=== PATIENT | male | born 1940 | race Caucasian/White ===

== ENCOUNTER 2018-12-04 15:25 | Inpatient (IN) | payer MEDICARE, MEDICAID, SELFPAY ==
[2018-12-04] VITALS (11 sets, daily range): BP systolic 146–164; BP diastolic 69–90; PULSE 93–119; RESP 17–24; TEMP 36.4–36.7; O2SAT 88–98; BMI 30.5
--- NOTE | 2018-12-04 17:08 | DI.RAD.S_ITS ---
PROCEDURE: XR CHEST 2V INDICATIONS: dyspnea TECHNIQUE: 2 views of the chest were acquired. COMPARISON: [facility], , CHEST 2 VIEW, 05/18/2014, 13:26. FINDINGS: Surgical changes and devices: None. Lungs and pleura: Mild right lateral basilar pleural-parenchymal density is present, which is increased. No pleural effusions or pneumothorax. Mediastinum: Mediastinal contours are normal. Heart size is enlarged. Bones and chest wall: No suspicious bony abnormalities. Soft tissues appear unremarkable. IMPRESSION: Increased right basilar pleural-parenchymal density, which could indicate pneumonitis. Follow up plain films of the chest are recommended to ensure resolution, and to exclude underlying or central malignancy. Dictated by: Anthony Rodríguez M.D. on 12/04/2018 at 18:09 Approved by: Anthony Rodríguez M.D. on 12/04/2018 at 18:10
--- NOTE | 2018-12-04 17:11 | ED.NAVMDI ---
HPI - Nausea/Vomiting/Diarrhea <Karol Saleem PA-C - Last Filed: 12/04/18 22:16> General Chief complaint: Nausea/Vomiting/Diarrhea Stated complaint: short of breath, diarrhea, chest issues Time Seen by Provider: 12/04/18 16:58 Source: patient Mode of arrival: ambulatory Limitations: no limitations History of Present Illness HPI Narrative: This 78-year-old male comes in with caregiver today due to worsening respiratory difficulties. He states this is just today however his caregiver states that this has been gradual. He states that he is more short of breath in general and having some wheezing as well. He is not having any chest pain. He admits that he has not been using inhalers. He has had increased swelling in his legs but no new pain. He denies any nausea or vomiting but has had persistent diarrhea for 5 or 6 days. He states that he has had loose, watery stools about every hour. He denies blood in the stools. He denies abdominal pain. He denies fever. Caregiver states that he has had frequent stools although he has not had any since she got there this morning about 6 hr ago. His furosemide was reduced a little bit at his last office visit at he seemed to be on the dry side. He is on spironolactone as well. Caregiver notes that he is not drinking or eating quite as much due to diarrhea Related Data Home Medications Medication Instructions Recorded Confirmed atorvastatin 20 mg PO BEDTIME 12/04/18 12/04/18 calcium carbonate [Tums] 500 mg PO BID 12/04/18 12/04/18 carvedilol 25 mg PO BID 12/04/18 12/04/18 cholecalciferol (vitamin D3) 2,000 unit PO BEDTIME 12/04/18 12/04/18 [Vitamin D3] docusate sodium 250 mg PO QNOON 12/04/18 12/04/18 furosemide 20 mg PO DAILY 12/04/18 12/04/18 gabapentin 300 mg PO BEDTIME 12/04/18 12/04/18 lisinopril 10 mg PO DAILY 12/04/18 12/04/18 potassium chloride 20 meq PO QNOON 12/04/18 12/04/18 quetiapine 25 mg PO BEDTIME 12/04/18 12/04/18 rivaroxaban [Xarelto] 20 mg PO QPM 12/04/18 12/04/18 sertraline 50 mg PO DAILY 12/04/18 12/04/18 spironolactone 12.5 mg PO DAILY 12/04/18 12/04/18 Allergies Allergy/AdvReac Type Severity Reaction Status Date / Time Penicillins [PENICILLINS] Allergy Unknown Verified 12/04/18 19:07 Review of Systems <Karol Saleem PA-C - Last Filed: 12/04/18 22:16> Review of Systems ROS Unobtainable: All systems reviewed & are unremarkable except as noted in HPI and below PFSH <Karol Slaeem PA-C - Last Filed: 12/04/18 22:16> Medical History Atrial fibrillation, chronic (Chronic) Atypical depression (Chronic) CHF exacerbation (Chronic) Chronic diarrhea (Chronic) Diabetes (Chronic) Elevated lipids (Chronic) 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 HEENT: PERRL, EOMI, normal oropharynx NECK/THYROID: Neck supple, no JVD. LUNGS: breath sounds are a bit diminished throughout, congested, without clear wheeze or crackles. on ambulation trial patient is able to walk through department with O2 sats upper 80s to 90 range, difficulty completing sentences after walking HEART: rate and rhythm irregular without murmur ABDOMEN: Soft, NT, ND, + BS x 4 quadrants EXTREMITIES: moderate symmetric pitting edema bilaterally, no calf tenderness NEUROLOGIC: Alert, speech intelligible, poor historian Initial Vital Signs Initial Vital Signs: Vital Signs Temperature 97.6 F 12/04/18 15:37 Pulse Rate 109 H 12/04/18 15:37 Respiratory Rate 20 12/04/18 15:37 Blood Pressure 153/82 H 12/04/18 15:37 Pulse Oximetry 95 12/04/18 15:37 <Aiden Ferrer DO - Last Filed: 12/05/18 07:05> Initial Vital Signs Initial Vital Signs: Vital Signs Temperature 97.6 F 12/04/18 15:37 Pulse Rate 109 H 12/04/18 15:37 Respiratory Rate 20 12/04/18 15:37 Blood Pressure 153/82 H 12/04/18 15:37 Pulse Oximetry 95 12/04/18 15:37 Course <Karol Saleem PA-C - Last Filed: 12/04/18 22:16> Additional Information: Reviewed findings with hospitalist TRELL Mistry with elevated BNP, worsening respiratory difficulties at home (reliable information via caregiver) and significant comorbidities. he is not able to manage his medications at home and will not have a caregiver present tomorrow. She is agreeable with admission for diuresis. Orders Ordered: ED Orders 12/05/18 05:45 B Type Natriuretic Peptide Routine Basic Metabolic Panel DAILY Magnesium DAILY Procalcitonin Routine 12/06/18 06:00 Basic Metabolic Panel DAILY Magnesium DAILY Acetaminophen (Tylenol) 650 mg PO Q6HR PRN PRN Reason: As Needed for Fever/Mild Pain Albuterol (Ventolin) 2.5 mg INH [id number] PRN PRN Reason: Bronchospasm Atorvastatin Calcium (Lipitor) 20 mg PO BEDTIME [facility] Last Admin: 12/05/18 00:18 Dose: 20 mg Bumetanide (Bumex) 0.5 mg IV Q8H [facility] Stop: 12/05/18 15:31 Last Admin: 12/05/18 00:18 Dose: 0.5 mg Carvedilol (Coreg) 25 mg PO BID [facility] Insulin Aspart (Novolog Flexpen) 0 unit SUBCUT ACHS SERGO; Protocol Lisinopril (Zestril) 10 mg PO DAILY [facility] Ondansetron HCl (Zofran) 4 mg IV Q8HR PRN PRN Reason: Nausea And Vomiting Quetiapine Fumarate (Seroquel) 25 mg PO BEDTIME [facility] Last Admin: 12/05/18 00:18 Dose: 25 mg Rivaroxaban (Xarelto) 20 mg PO QPM [facility] Vitamin D (Vitamin D3) 2,000 unit PO BEDTIME [facility] Discontinued Medications Albuterol (Ventolin) 2.5 mg INH NOW ONE Stop: 12/04/18 17:09 Last Admin: 12/04/18 17:15 Dose: 2.5 mg Furosemide (Lasix) 40 mg IV NOW ONE Stop: 12/04/18 17:20 Last Admin: 12/04/18 17:34 Dose: 40 mg Sodium Chloride (Normal Saline 0.9%) 1,000 mls @ 500 mls/hr IV BOLUS ONE Stop: 12/04/18 19:19 Last Infusion: 12/04/18 19:57 Dose: 500 mls/hr Admin: 12/04/18 17:33 Dose: 500 mls/hr Loperamide HCl (Immodium Liquid) 4 mg PO NOW ONE Stop: 12/04/18 17:19 Last Admin: 12/04/18 17:33 Dose: 4 mg Metoprolol Tartrate (Lopressor) 5 mg IV NOW ONE Stop: 12/04/18 23:16 Last Admin: 12/05/18 00:17 Dose: 5 mg Vital Signs - 8 hr 12/05/18 00:06 12/05/18 00:18 12/05/18 00:30 Temperature 97.6 F Pulse Rate 91 H 95 H 86 Respiratory Rate 20 Blood Pressure 135/82 150/95 H 138/71 Pulse Oximetry 92 99 95 12/05/18 04:00 Temperature 97.3 F L Pulse Rate 87 Respiratory Rate 18 Blood Pressure 129/57 L Pulse Oximetry 93 <Aiden Ferrer DO - Last Filed: 12/05/18 07:05> Orders Ordered: ED Orders 12/05/18 05:45 B Type Natriuretic Peptide Routine Basic Metabolic Panel DAILY Magnesium DAILY Procalcitonin Routine 12/06/18 06:00 Basic Metabolic Panel DAILY Magnesium DAILY Acetaminophen (Tylenol) 650 mg PO Q6HR PRN PRN Reason: As Needed for Fever/Mild Pain Albuterol (Ventolin) 2.5 mg INH [id number] PRN PRN Reason: Bronchospasm Atorvastatin Calcium (Lipitor) 20 mg PO BEDTIME [facility] Last Admin: 12/05/18 00:18 Dose: 20 mg Bumetanide (Bumex) 0.5 mg IV Q8H [facility] Stop: 12/05/18 15:31 Last Admin: 12/05/18 00:18 Dose: 0.5 mg Carvedilol (Coreg) 25 mg PO BID [facility] Insulin Aspart (Novolog Flexpen) 0 unit SUBCUT ACHS SER[facility]; Protocol Lisinopril (Zestril) 10 mg PO DAILY [facility] Ondansetron HCl (Zofran) 4 mg IV Q8HR PRN PRN Reason: Nausea And Vomiting Quetiapine Fumarate (Seroquel) 25 mg PO BEDTIME [facility] Last Admin: 12/05/18 00:18 Dose: 25 mg Rivaroxaban (Xarelto) 20 mg PO QPM [facility] Vitamin D (Vitamin D3) 2,000 unit PO BEDTIME [facility] Discontinued Medications Albuterol (Ventolin) 2.5 mg INH NOW ONE Stop: 12/04/18 17:09 Last Admin: 12/04/18 17:15 Dose: 2.5 mg Furosemide (Lasix) 40 mg IV NOW ONE Stop: 12/04/18 17:20 Last Admin: 12/04/18 17:34 Dose: 40 mg Sodium Chloride (Normal Saline 0.9%) 1,000 mls @ 500 mls/hr IV BOLUS ONE Stop: 12/04/18 19:19 Last Infusion: 12/04/18 19:57 Dose: 500 mls/hr Admin: 12/04/18 17:33 Dose: 500 mls/hr Loperamide HCl (Immodium Liquid) 4 mg PO NOW ONE Stop: 12/04/18 17:19 Last Admin: 12/04/18 17:33 Dose: 4 mg Metoprolol Tartrate (Lopressor) 5 mg IV NOW ONE Stop: 12/04/18 23:16 Last Admin: 12/05/18 00:17 Dose: 5 mg Vital Signs - 8 hr 12/05/18 00:06 12/05/18 00:18 12/05/18 00:30 Temperature 97.6 F Pulse Rate 91 H 95 H 86 Respiratory Rate 20 Blood Pressure 135/82 150/95 H 138/71 Pulse Oximetry 92 99 95 12/05/18 04:00 Temperature 97.3 F L Pulse Rate 87 Respiratory Rate 18 Blood Pressure 129/57 L Pulse Oximetry 93 MDM - Nausea/Vomiting/Diarrhea <Karol Saleem PA-C - Last Filed: 12/04/18 22:16> Lab Data Attestation: I reviewed the patient's lab results. Result diagrams: 12/04/18 17:02 12/05/18 05:45 Lab Results 12/04/18 12/04/18 12/04/18 Range/Units 17:02 17:02 17:02 WBC 9.0 (4.5-11.0) X10^3/uL RBC 3.85 L (4.5-5.9) X10^6/uL Hgb 12.3 L (13.5-17.5) g/dL Hct 38.0 L (41-53) % MCV 98.6 (80-100) fL MCH 32.0 (26-34) PG MCHC 32.4 (30-36) % RDW 19.3 H (11.6-14.8) % Plt Count 235 (150-400) X10^3/uL Neut % (Auto) 76.0 H (50-75) % Lymph % (Auto) 12.6 L (25-40) % Gulf % (Auto) 6.0 (3-14) % Eos % (Auto) 4.3 H (2-4) % Baso % (Auto) 1.1 (0-2) % Neut # (Auto) 6900 (2814-1189) /uL Lymph # (Auto) 1100 (2759-4800) /uL [place] # (Auto) 500 (0-900) /uL Eos # (Auto) 400 (0-450) /uL Baso # (Auto) 100 (0-100) /uL Sodium 140 (137-145) mmol/L Potassium 3.9 (3.4-5.1) mmol/L Chloride 101 (98-107) mmol/L Carbon Dioxide 30 (22-32) mmol/L BUN 14 (9-20) mg/dL Creatinine 1.00 (0.66-1.25) mg/dL Estimated GFR > 60.0 (>60) mL/min BUN/Creatinine Ratio 14.0 (6-22) Glucose 133 H (80-110) mg/dL Calcium 8.5 (8.4-10.2) mg/dL Magnesium 2.3 (1.6-2.3) mg/dL Total Bilirubin 1.9 H (0.2-1.3) mg/dL AST 24 (17-59) IU/L ALT 36 (21-72) IU/L Alkaline Phosphatase 81 (38-126) U/L B-Natriuretic Peptide 1640 H (<100) Total Protein 6.1 L (6.3-8.2) g/dL Albumin 3.4 L (3.5-5.0) g/dL Globulin 2.7 (1.7-4.1) g/dL Albumin/Globulin Ratio 1.3 (1.0-2.8) Chlamy pneumoniae PCR (Not Detect) Adenovirus (PCR) (Not Detect) B.parapertussis DNA PCR (Not Detect) Coronavirus OC43 (PCR) (Not Detect) Coronavirus HKU1 (PCR) (Not Detect) Coronavirus 229E (PCR) (Not Detect) Coronavirus NL63 (PCR) (Not Detect) Human Metapneumovir PCR (Not Detect) Influenza Type A (PCR) (Not Detect) Influenza Type B (PCR) (Not Detect) M. pneumoniae (PCR) (Not Detect) Parainfluenza 1 (PCR) (Not Detect) Parainfluenza 2 (PCR) (Not Detect) Parainfluenza 3 (PCR) (Not Detect) Parainfluenza 4 (PCR) (Not Detect) RSV (PCR) (Not Detect) Entero/Rhino (PCR) (Not Detect) 12/04/18 12/05/18 12/05/18 Range/Units 21:45 05:45 05:45 WBC (4.5-11.0) X10^3/uL RBC (4.5-5.9) X10^6/uL Hgb (13.5-17.5) g/dL Hct (41-53) % MCV (80-100) fL MCH (26-34) PG MCHC (30-36) % RDW (11.6-14.8) % Plt Count (150-400) X10^3/uL Neut % (Auto) (50-75) % Lymph % (Auto) (25-40) % Gulf % (Auto) (3-14) % Eos % (Auto) (2-4) % Baso % (Auto) (0-2) % Neut # (Auto) (3929-4567) /uL Lymph # (Auto) (0787-4052) /uL [place] # (Auto) (0-900) /uL Eos # (Auto) (0-450) /uL Baso # (Auto) (0-100) /uL Sodium 140 (137-145) mmol/L Potassium 3.5 (3.4-5.1) mmol/L Chloride 104 (98-107) mmol/L Carbon Dioxide 28 (22-32) mmol/L BUN 13 (9-20) mg/dL Creatinine 1.00 (0.66-1.25) mg/dL Estimated GFR > 60.0 (>60) mL/min BUN/Creatinine Ratio 13.0 (6-22) Glucose 121 H (80-110) mg/dL Calcium 8.5 (8.4-10.2) mg/dL Magnesium 1.9 (1.6-2.3) mg/dL Total Bilirubin (0.2-1.3) mg/dL AST (17-59) IU/L ALT (21-72) IU/L Alkaline Phosphatase (38-126) U/L B-Natriuretic Peptide 1590 H (<100) Total Protein (6.3-8.2) g/dL Albumin (3.5-5.0) g/dL Globulin (1.7-4.1) g/dL Albumin/Globulin Ratio (1.0-2.8) Chlamy pneumoniae PCR Not detected (Not Detect) Adenovirus (PCR) Not detected (Not Detect) B.parapertussis DNA PCR Not detected (Not Detect) Coronavirus OC43 (PCR) Not detected (Not Detect) Coronavirus HKU1 (PCR) Not detected (Not Detect) Coronavirus 229E (PCR) Not detected (Not Detect) Coronavirus NL63 (PCR) Not detected (Not Detect) Human Metapneumovir PCR Not detected (Not Detect) Influenza Type A (PCR) Not detected (Not Detect) Influenza Type B (PCR) Not detected (Not Detect) M. pneumoniae (PCR) Not detected (Not Detect) Parainfluenza 1 (PCR) Not detected (Not Detect) Parainfluenza 2 (PCR) Not detected (Not Detect) Parainfluenza 3 (PCR) Not detected (Not Detect) Parainfluenza 4 (PCR) Not detected (Not Detect) RSV (PCR) Not detected (Not Detect) Entero/Rhino (PCR) Not detected (Not Detect) Point of Care Testing Glucose POC 121 Imaging Data Chest x-ray: Radiologist's impression: [address] [address] XRay Report Signed Patient: Anam Davidson RMR#: [id number] : 1940Acct:[id number] Age/Sex: 78 / MDate of Service: 12/04/18 Loc: ED Accession Number: [id number] Procedure: XR chest 2V Ordering Provider: Karol Saleem P.A-C PROCEDURE: XR CHEST 2V INDICATIONS: dyspnea TECHNIQUE: 2 views of the chest were acquired. COMPARISON: [facility], CHEST 2 VIEW, 05/18/2014, 13:26. FINDINGS: Surgical changes and devices: None. Lungs and pleura: Mild right lateral basilar pleural-parenchymal density is present, which is increased. No pleural effusions or pneumothorax. Mediastinum: Mediastinal contours are normal. Heart size is enlarged. Bones and chest wall: No suspicious bony abnormalities. Soft tissues appear unremarkable. IMPRESSION: Increased right basilar pleural-parenchymal density, which could indicate pneumonitis. Follow up plain films of the chest are recommended to ensure resolution, and to exclude underlying or central malignancy. Dictated by: Anthony Rodríguez M.D. on 12/04/2018 at 18:09 Approved by: Anthony Rodríguez M.D. on 12/04/2018 at 18:10 ECG Data Attestation: I personally reviewed and interpreted this ECG as follows: ( atrial fibrillation with rate 95-115 on 2 EKGs, bundle branch pattern present inferior leads) <Aiden Ferrer DO - Last Filed: 12/05/18 07:05> Lab Data Lab Results 12/04/18 12/04/18 12/04/18 Range/Units 17:02 17:02 17:02 WBC 9.0 (4.5-11.0) X10^3/uL RBC 3.85 L (4.5-5.9) X10^6/uL Hgb 12.3 L (13.5-17.5) g/dL Hct 38.0 L (41-53) % MCV 98.6 (80-100) fL MCH 32.0 (26-34) PG MCHC 32.4 (30-36) % RDW 19.3 H (11.6-14.8) % Plt Count 235 (150-400) X10^3/uL Neut % (Auto) 76.0 H (50-75) % Lymph % (Auto) 12.6 L (25-40) % [place] % (Auto) 6.0 (3-14) % Eos % (Auto) 4.3 H (2-4) % Baso % (Auto) 1.1 (0-2) % Neut # (Auto) 6900 (3900-4162) /uL Lymph # (Auto) 1100 (8185-2100) /uL [place] # (Auto) 500 (0-900) /uL Eos # (Auto) 400 (0-450) /uL Baso # (Auto) 100 (0-100) /uL Sodium 140 (137-145) mmol/L Potassium 3.9 (3.4-5.1) mmol/L Chloride 101 (98-107) mmol/L Carbon Dioxide 30 (22-32) mmol/L BUN 14 (9-20) mg/dL Creatinine 1.00 (0.66-1.25) mg/dL Estimated GFR > 60.0 (>60) mL/min BUN/Creatinine Ratio 14.0 (6-22) Glucose 133 H (80-110) mg/dL Calcium 8.5 (8.4-10.2) mg/dL Magnesium 2.3 (1.6-2.3) mg/dL Total Bilirubin 1.9 H (0.2-1.3) mg/dL AST 24 (17-59) IU/L ALT 36 (21-72) IU/L Alkaline Phosphatase 81 (38-126) U/L B-Natriuretic Peptide 1640 H (<100) Total Protein 6.1 L (6.3-8.2) g/dL Albumin 3.4 L (3.5-5.0) g/dL Globulin 2.7 (1.7-4.1) g/dL Albumin/Globulin Ratio 1.3 (1.0-2.8) Chlamy pneumoniae PCR (Not Detect) Adenovirus (PCR) (Not Detect) B.parapertussis DNA PCR (Not Detect) Coronavirus OC43 (PCR) (Not Detect) Coronavirus HKU1 (PCR) (Not Detect) Coronavirus 229E (PCR) (Not Detect) Coronavirus NL63 (PCR) (Not Detect) Human Metapneumovir PCR (Not Detect) Influenza Type A (PCR) (Not Detect) Influenza Type B (PCR) (Not Detect) M. pneumoniae (PCR) (Not Detect) Parainfluenza 1 (PCR) (Not Detect) Parainfluenza 2 (PCR) (Not Detect) Parainfluenza 3 (PCR) (Not Detect) Parainfluenza 4 (PCR) (Not Detect) RSV (PCR) (Not Detect) Entero/Rhino (PCR) (Not Detect) 12/04/18 12/05/18 12/05/18 Range/Units 21:45 05:45 05:45 WBC (4.5-11.0) X10^3/uL RBC (4.5-5.9) X10^6/uL Hgb (13.5-17.5) g/dL Hct (41-53) % MCV (80-100) fL MCH (26-34) PG MCHC (30-36) % RDW (11.6-14.8) % Plt Count (150-400) X10^3/uL Neut % (Auto) (50-75) % Lymph % (Auto) (25-40) % [place] % (Auto) (3-14) % Eos % (Auto) (2-4) % Baso % (Auto) (0-2) % Neut # (Auto) (9582-9482) /uL Lymph # (Auto) (7960-8461) /uL [place] # (Auto) (0-900) /uL Eos # (Auto) (0-450) /uL Baso # (Auto) (0-100) /uL Sodium 140 (137-145) mmol/L Potassium 3.5 (3.4-5.1) mmol/L Chloride 104 (98-107) mmol/L Carbon Dioxide 28 (22-32) mmol/L BUN 13 (9-20) mg/dL Creatinine 1.00 (0.66-1.25) mg/dL Estimated GFR > 60.0 (>60) mL/min BUN/Creatinine Ratio 13.0 (6-22) Glucose 121 H (80-110) mg/dL Calcium 8.5 (8.4-10.2) mg/dL Magnesium 1.9 (1.6-2.3) mg/dL Total Bilirubin (0.2-1.3) mg/dL AST (17-59) IU/L ALT (21-72) IU/L Alkaline Phosphatase (38-126) U/L B-Natriuretic Peptide 1590 H (<100) Total Protein (6.3-8.2) g/dL Albumin (3.5-5.0) g/dL Globulin (1.7-4.1) g/dL Albumin/Globulin Ratio (1.0-2.8) Chlamy pneumoniae PCR Not detected (Not Detect) Adenovirus (PCR) Not detected (Not Detect) B.parapertussis DNA PCR Not detected (Not Detect) Coronavirus OC43 (PCR) Not detected (Not Detect) Coronavirus HKU1 (PCR) Not detected (Not Detect) Coronavirus 229E (PCR) Not detected (Not Detect) Coronavirus NL63 (PCR) Not detected (Not Detect) Human Metapneumovir PCR Not detected (Not Detect) Influenza Type A (PCR) Not detected (Not Detect) Influenza Type B (PCR) Not detected (Not Detect) M. pneumoniae (PCR) Not detected (Not Detect) Parainfluenza 1 (PCR) Not detected (Not Detect) Parainfluenza 2 (PCR) Not detected (Not Detect) Parainfluenza 3 (PCR) Not detected (Not Detect) Parainfluenza 4 (PCR) Not detected (Not Detect) RSV (PCR) Not detected (Not Detect) Entero/Rhino (PCR) Not detected (Not Detect) Point of Care Testing Glucose POC 121 Discharge Plan Departure Patient Disposition: Admitted As Inpatient Clinical Impression: Acute exacerbation of CHF (congestive heart failure) Qualifiers: Heart failure type: unspecified Qualified Code(s): I50.9 - Heart failure, unspecified Discharge Date/Time: 12/04/18 21:01 Interventions: ED Discharge Assessment Last Done: 12/04/18 21:00 Admit Date/Time: 12/04/18 20:17 Admit Provider: Romina Mistry <Aiden Ferrer DO - Last Filed: 12/05/18 07:05> Cosign ED Attending Cosignature Attestation: I was available for consultation during this patient's emergency department encounter
[2018-12-04] MEDS: ALBUTEROL 2.5 MG/3 ML NEB (ADULT) INH (17:15)
--- NOTE | 2018-12-04 17:18 | ED_ITS ---
HPI - Nausea/Vomiting/Diarrhea <Karol Saleem PA-C - Last Filed: 12/04/18 22:16> General Chief complaint: Nausea/Vomiting/Diarrhea Stated complaint: short of breath, diarrhea, chest issues Time Seen by Provider: 12/04/18 16:58 Source: patient Mode of arrival: ambulatory Limitations: no limitations History of Present Illness HPI Narrative: This 78-year-old male comes in with caregiver today due to worsening respiratory difficulties. He states this is just today however his caregiver states that this has been gradual. He states that he is more short of breath in general and having some wheezing as well. He is not having any chest pain. He admits that he has not been using inhalers. He has had increased swelling in his legs but no new pain. He denies any nausea or vomiting but has had persistent diarrhea for 5 or 6 days. He states that he has had loose, watery stools about every hour. He denies blood in the stools. He denies abdominal pain. He denies fever. Caregiver states that he has had frequent stools although he has not had any since she got there this morning about 6 hr ago. His furosemide was reduced a little bit at his last office visit at he seemed to be on the dry side. He is on spironolactone as well. Caregiver notes that he is not drinking or eating quite as much due to diarrhea Related Data Home Medications Medication Instructions Recorded Confirmed atorvastatin 20 mg PO BEDTIME 12/04/18 12/04/18 calcium carbonate [Tums] 500 mg PO BID 12/04/18 12/04/18 carvedilol 25 mg PO BID 12/04/18 12/04/18 cholecalciferol (vitamin D3) 2,000 unit PO BEDTIME 12/04/18 12/04/18 [Vitamin D3] docusate sodium 250 mg PO QNOON 12/04/18 12/04/18 furosemide 20 mg PO DAILY 12/04/18 12/04/18 gabapentin 300 mg PO BEDTIME 12/04/18 12/04/18 lisinopril 10 mg PO DAILY 12/04/18 12/04/18 potassium chloride 20 meq PO QNOON 12/04/18 12/04/18 quetiapine 25 mg PO BEDTIME 12/04/18 12/04/18 rivaroxaban [Xarelto] 20 mg PO QPM 12/04/18 12/04/18 sertraline 50 mg PO DAILY 12/04/18 12/04/18 spironolactone 12.5 mg PO DAILY 12/04/18 12/04/18 Allergies Allergy/AdvReac Type Severity Reaction Status Date / Time Penicillins [PENICILLINS] Allergy Unknown Verified 12/04/18 19:07 Review of Systems <Karol Saleem PA-C - Last Filed: 12/04/18 22:16> Review of Systems ROS Unobtainable: All systems reviewed & are unremarkable except as noted in HPI and below PFSH <Karol Saleem PA-C - Last Filed: 12/04/18 22:16> Medical History Atrial fibrillation, chronic (Chronic) Atypical depression (Chronic) CHF exacerbation (Chronic) Chronic diarrhea (Chronic) Diabetes (Chronic) Elevated lipids (Chronic) 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 HEENT: PERRL, EOMI, normal oropharynx NECK/THYROID: Neck supple, no JVD. LUNGS: breath sounds are a bit diminished throughout, congested, without clear wheeze or crackles. on ambulation trial patient is able to walk through department with O2 sats upper 80s to 90 range, difficulty completing sentences after walking HEART: rate and rhythm irregular without murmur ABDOMEN: Soft, NT, ND, + BS x 4 quadrants EXTREMITIES: moderate symmetric pitting edema bilaterally, no calf tenderness NEUROLOGIC: Alert, speech intelligible, poor historian Initial Vital Signs Initial Vital Signs: Vital Signs Temperature 97.6 F 12/04/18 15:37 Pulse Rate 109 H 12/04/18 15:37 Respiratory Rate 20 12/04/18 15:37 Blood Pressure 153/82 H 12/04/18 15:37 Pulse Oximetry 95 12/04/18 15:37 <Aiden Ferrer DO - Last Filed: 12/05/18 07:05> Initial Vital Signs Initial Vital Signs: Vital Signs Temperature 97.6 F 12/04/18 15:37 Pulse Rate 109 H 12/04/18 15:37 Respiratory Rate 20 12/04/18 15:37 Blood Pressure 153/82 H 12/04/18 15:37 Pulse Oximetry 95 12/04/18 15:37 Course <Karol Saleem PA-C - Last Filed: 12/04/18 22:16> Additional Information: Reviewed findings with hospitalist TRELL Mistry with elevated BNP, worsening respiratory difficulties at home (reliable information v ia caregiver) and significant comorbidities. he is not able to manage his medications at home and will not have a caregiver present tomorrow. She is agreeable with admission for diuresis. Orders Ordered: ED Orders 12/05/18 05:45 B Type Natriuretic Peptide Routine Basic Metabolic Panel DAILY Magnesium DAILY Procalcitonin Routine 12/06/18 06:00 Basic Metabolic Panel DAILY Magnesium DAILY Acetaminophen (Tylenol) 650 mg PO Q6HR PRN PRN Reason: As Needed for Fever/Mild Pain Albuterol (Ventolin) 2.5 mg INH [id number] PRN PRN Reason: Bronchospasm Atorvastatin Calcium (Lipitor) 20 mg PO BEDTIME [facility] Last Admin: 12/05/18 00:18 Dose: 20 mg Bumetanide (Bumex) 0.5 mg IV Q8H [facility] Stop: 12/05/18 15:31 Last Admin: 12/05/18 00:18 Dose: 0.5 mg Carvedilol (Coreg) 25 mg PO BID [facility] Insulin Aspart (Novolog Flexpen) 0 unit SUBCUT ACHS [facility]; Protocol Lisinopril (Zestril) 10 mg PO DAILY [facility] Ondansetron HCl (Zofran) 4 mg IV Q8HR PRN PRN Reason: Nausea And Vomiting Quetiapine Fumarate (Seroquel) 25 mg PO BEDTIME [facility] Last Admin: 12/05/18 00:18 Dose: 25 mg Rivaroxaban (Xarelto) 20 mg PO QPM [facility] Vitamin D (Vitamin D3) 2,000 unit PO BEDTIME [facility] Discontinued Medications Albuterol (Ventolin) 2.5 mg INH NOW ONE Stop: 12/04/18 17:09 Last Admin: 12/04/18 17:15 Dose: 2.5 mg Furosemide (Lasix) 40 mg IV NOW ONE Stop: 12/04/18 17:20 Last Admin: 12/04/18 17:34 Dose: 40 mg Sodium Chloride (Normal Saline 0.9%) 1,000 mls @ 500 mls/hr IV BOLUS ONE Stop: 12/04/18 19:19 Last Infusion: 12/04/18 19:57 Dose: 500 mls/hr Admin: 12/04/18 17:33 Dose: 500 mls/hr Loperamide HCl (Immodium Liquid) 4 mg PO NOW ONE Stop: 12/04/18 17:19 Last Admin: 12/04/18 17:33 Dose: 4 mg Metoprolol Tartrate (Lopressor) 5 mg IV NOW ONE Stop: 12/04/18 23:16 Last Admin: 12/05/18 00:17 Dose: 5 mg Vital Signs - 8 hr 12/05/18 00:06 12/05/18 00:18 12/05/18 00:30 Temperature 97.6 F Pulse Rate 91 H 95 H 86 Respiratory Rate 20 Blood Pressure 135/82 150/95 H 138/71 Pulse Oximetry 92 99 95 12/05/18 04:00 Temperature 97.3 F L Pulse Rate 87 Respiratory Rate 18 Blood Pressure 129/57 L Pulse Oximetry 93 <Aiden Ferrer DO - Last Filed: 12/05/18 07:05> Orders Ordered: ED Orders 12/05/18 05:45 B Type Natriuretic Peptide Routine Basic Metabolic Panel DAILY Magnesium DAILY Procalcitonin Routine 12/06/18 06:00 Basic Metabolic Panel DAILY Magnesium DAILY Acetaminophen (Tylenol) 650 mg PO Q6HR PRN PRN Reason: As Needed for Fever/Mild Pain Albuterol (Ventolin) 2.5 mg INH [id number] PRN PRN Reason: Bronchospasm Atorvastatin Calcium (Lipitor) 20 mg PO BEDTIME [facility] Last Admin: 12/05/18 00:18 Dose: 20 mg Bumetanide (Bumex) 0.5 mg IV Q8H [facility] Stop: 12/05/18 15:31 Last Admin: 12/05/18 00:18 Dose: 0.5 mg Carvedilol (Coreg) 25 mg PO BID [facility] Insulin Aspart (Novolog Flexpen) 0 unit SUBCUT ACHS [facility]; Protocol Lisinopril (Zestril) 10 mg PO DAILY [facility] Ondansetron HCl (Zofran) 4 mg IV Q8HR PRN PRN Reason: Nausea And Vomiting Quetiapine Fumarate (Seroquel) 25 mg PO BEDTIME [facility] Last Admin: 12/05/18 00:18 Dose: 25 mg Rivaroxaban (Xarelto) 20 mg PO QPM [facility] Vitamin D (Vitamin D3) 2,000 unit PO BEDTIME [facility] Discontinued Medications Albuterol (Ventolin) 2.5 mg INH NOW ONE Stop: 12/04/18 17:09 Last Admin: 12/04/18 17:15 Dose: 2.5 mg Furosemide (Lasix) 40 mg IV NOW ONE Stop: 12/04/18 17:20 Last Admin: 12/04/18 17:34 Dose: 40 mg Sodium Chloride (Normal Saline 0.9%) 1,000 mls @ 500 mls/hr IV BOLUS ONE Stop: 12/04/18 19:19 Last Infusion: 12/04/18 19:57 Dose: 500 mls/hr Admin: 12/04/18 17:33 Dose: 500 mls/hr Loperamide HCl (Immodium Liquid) 4 mg PO NOW ONE Stop: 12/04/18 17:19 Last Admin: 12/04/18 17:33 Dose: 4 mg Metoprolol Tartrate (Lopressor) 5 mg IV NOW ONE Stop: 12/04/18 23:16 Last Admin: 12/05/18 00:17 Dose: 5 mg Vital Signs - 8 hr 12/05/18 00:06 12/05/18 00:18 12/05/18 00:30 Temperature 97.6 F Pulse Rate 91 H 95 H 86 Respiratory Rate 20 Blood Pressure 135/82 150/95 H 138/71 Pulse Oximetry 92 99 95 12/05/18 04:00 Temperature 97.3 F L Pulse Rate 87 Respiratory Rate 18 Blood Pressure 129/57 L Pulse Oximetry 93 MDM - Nausea/Vomiting/Diarrhea <Karol Saleem PA-C - Last Filed: 12/04/18 22:16> Lab Data Attestation: I reviewed the patient's lab results. Result diagrams: 12/04/18 17:02 12/05/18 05:45 Lab Results 12/04/18 12/04/18 12/04/18 Range/Units 17:02 17:02 17:02 WBC 9.0 (4.5-11.0) X10^3/uL RBC 3.85 L (4.5-5.9) X10^6/uL Hgb 12.3 L (13.5-17.5) g/dL Hct 38.0 L (41-53) % MCV 98.6 (80-100) fL MCH 32.0 (26-34) PG MCHC 32.4 (30-36) % RDW 19.3 H (11.6-14.8) % Plt Count 235 (150-400) X10^3/uL Neut % (Auto) 76.0 H (50-75) % Lymph % (Auto) 12.6 L (25-40) % [place] % (Auto) 6.0 (3-14) % Eos % (Auto) 4.3 H (2-4) % Baso % (Auto) 1.1 (0-2) % Neut # (Auto) 6900 (4544-6204) /uL Lymph # (Auto) 1100 (2028-9691) /uL [place] # (Auto) 500 (0-900) /uL Eos # (Auto) 400 (0-450) /uL Baso # (Auto) 100 (0-100) /uL Sodium 140 (137-145) mmol/L Potassium 3.9 (3.4-5.1) mmol/L Chloride 101 (98-107) mmol/L Carbon Dioxide 30 (22-32) mmol/L BUN 14 (9-20) mg/dL Creatinine 1.00 (0.66-1.25) mg/dL Estimated GFR > 60.0 (>60) mL/min BUN/Creatinine Ratio 14.0 (6-22) Glucose 133 H (80-110) mg/dL Calcium 8.5 (8.4-10.2) mg/dL Magnesium 2.3 (1.6-2.3) mg/dL Total Bilirubin 1.9 H (0.2-1.3) mg/dL AST 24 (17-59) IU/L ALT 36 (21-72) IU/L Alkaline Phosphatase 81 (38-126) U/L B-Natriuretic Peptide 1640 H (<100) Total Protein 6.1 L (6.3-8.2) g/dL Albumin 3.4 L (3.5-5.0) g/dL Globulin 2.7 (1.7-4.1) g/dL Albumin/Globulin Ratio 1.3 (1.0-2.8) Chlamy pneumoniae PCR (Not Detect) Adenovirus (PCR) (Not Detect) B.parapertussis DNA PCR (Not Detect) Coronavirus OC43 (PCR) (Not Detect) Coronavirus HKU1 (PCR) (Not Detect) Coronavirus 229E (PCR) (Not Detect) Coronavirus NL63 (PCR) (Not Detect) Human Metapneumovir PCR (Not Detect) Influenza Type A (PCR) (Not Detect) Influenza Type B (PCR) (Not Detect) M. pneumoniae (PCR) (Not Detect) Parainfluenza 1 (PCR) (Not Detect) Parainfluenza 2 (PCR) (Not Detect) Parainfluenza 3 (PCR) (Not Detect) Parainfluenza 4 (PCR) (Not Detect) RSV (PCR) (Not Detect) Entero/Rhino (PCR) (Not Detect) 12/04/18 12/05/18 12/05/18 Range/Units 21:45 05:45 05:45 WBC (4.5-11.0) X10^3/uL RBC (4.5-5.9) X10^6/uL Hgb (13.5-17.5) g/dL Hct (41-53) % MCV (80-100) fL MCH (26-34) PG MCHC (30-36) % RDW (11.6-14.8) % Plt Count (150-400) X10^3/uL Neut % (Auto) (50-75) % Lymph % (Auto) (25-40) % [place] % (Auto) (3-14) % Eos % (Auto) (2-4) % Baso % (Auto) (0-2) % Neut # (Auto) (4333-6633) /uL Lymph # (Auto) (5700-2889) /uL [place] # (Auto) (0-900) /uL Eos # (Auto) (0-450) /uL Baso # (Auto) (0-100) /uL Sodium 140 (137-145) mmol/L Potassium 3.5 (3.4-5.1) mmol/L Chloride 104 (98-107) mmol/L Carbon Dioxide 28 (22-32) mmol/L BUN 13 (9-20) mg/dL Creatinine 1.00 (0.66-1.25) mg/dL Estimated GFR > 60.0 (>60) mL/min BUN/Creatinine Ratio 13.0 (6-22) Glucose 121 H (80-110) mg/dL Calcium 8.5 (8.4-10.2) mg/dL Magnesium 1.9 (1.6-2.3) mg/dL Total Bilirubin (0.2-1.3) mg/dL AST (17-59) IU/L ALT (21-72) IU/L Alkaline Phosphatase (38-126) U/L B-Natriuretic Peptide 1590 H (<100) Total Protein (6.3-8.2) g/dL Albumin (3.5-5.0) g/dL Globulin (1.7-4.1) g/dL Albumin/Globulin Ratio (1.0-2.8) Chlamy pneumoniae PCR Not detected (Not Detect) Adenovirus (PCR) Not detected (Not Detect) B.parapertussis DNA PCR Not detected (Not Detect) Coronavirus OC43 (PCR) Not detected (Not Detect) Coronavirus HKU1 (PCR) Not detected (Not Detect) Coronavirus 229E (PCR) Not detected (Not Detect) Coronavirus NL63 (PCR) Not detected (Not Detect) Human Metapneumovir PCR Not detected (Not Detect) Influenza Type A (PCR) Not detected (Not Detect) Influenza Type B (PCR) Not detected (Not Detect) M. pneumoniae (PCR) Not detected (Not Detect) Parainfluenza 1 (PCR) Not detected (Not Detect) Parainfluenza 2 (PCR) Not detected (Not Detect) Parainfluenza 3 (PCR) Not detected (Not Detect) Parainfluenza 4 (PCR) Not detected (Not Detect) RSV (PCR) Not detected (Not Detect) Entero/Rhino (PCR) Not detected (Not Detect) Point of Care Testing Glucose POC 121 Imaging Data Chest x-ray: Radiologist's impression: [address] [address] XRay Report Signed Patient: Anam Davidson RMR#: [id number] : 1940Acct:[id number] Age/Sex: 78 / MDate of Service: 12/04/18 Loc: ED Accession Number: [id number] Procedure: XR chest 2V Ordering Provider: Karol Saleem P.A-C PROCEDURE: XR CHEST 2V INDICATIONS: dyspnea TECHNIQUE: 2 views of the chest were acquired. COMPARISON: [facility], CHEST 2 VIEW, 05/18/2014, 13:26. FINDINGS: Surgical changes and devices: None. Lungs and pleura: Mild right lateral basilar pleural-parenchymal density is pre sent, which is increased. No pleural effusions or pneumothorax. Mediastinum: Mediastinal contours are normal. Heart size is enlarged. Bones and chest wall: No suspicious bony abnormalities. Soft tissues appear unremarkable. IMPRESSION: Increased right basilar pleural-parenchymal density, which could indicate pneumonitis. Follow up plain films of the chest are recommended to ensure resolution, and to exclude underlying or central malignancy. Dictated by: Anthony Rodríguez M.D. on 12/04/2018 at 18:09 Approved by: Anthony Rodríguez M.D. on 12/04/2018 at 18:10 ECG Data Attestation: I personally reviewed and interpreted this ECG as follows: ( atrial fibrillation with rate 95-115 on 2 EKGs, bundle branch pattern present inferior leads) <Aiden Ferrer, - Last Filed: 12/05/18 07:05> Lab Data Lab Results 12/04/18 12/04/18 12/04/18 Range/Units 17:02 17:02 17:02 WBC 9.0 (4.5-11.0) X10^3/uL RBC 3.85 L (4.5-5.9) X10^6/uL Hgb 12.3 L (13.5-17.5) g/dL Hct 38.0 L (41-53) % MCV 98.6 (80-100) fL MCH 32.0 (26-34) PG MCHC 32.4 (30-36) % RDW 19.3 H (11.6-14.8) % Plt Count 235 (150-400) X10^3/uL Neut % (Auto) 76.0 H (50-75) % Lymph % (Auto) 12.6 L (25-40) % [place] % (Auto) 6.0 (3-14) % Eos % (Auto) 4.3 H (2-4) % Baso % (Auto) 1.1 (0-2) % Neut # (Auto) 6900 (9312-4653) /uL Lymph # (Auto) 1100 (7777-8153) /uL [place] # (Auto) 500 (0-900) /uL Eos # (Auto) 400 (0-450) /uL Baso # (Auto) 100 (0-100) /uL Sodium 140 (137-145) mmol/L Potassium 3.9 (3.4-5.1) mmol/L Chloride 101 (98-107) mmol/L Carbon Dioxide 30 (22-32) mmol/L BUN 14 (9-20) mg/dL Creatinine 1.00 (0.66-1.25) mg/dL Estimated GFR > 60.0 (>60) mL/min BUN/Creatinine Ratio 14.0 (6-22) Glucose 133 H (80-110) mg/dL Calcium 8.5 (8.4-10.2) mg/dL Magnesium 2.3 (1.6-2.3) mg/dL Total Bilirubin 1.9 H (0.2-1.3) mg/dL AST 24 (17-59) IU/L ALT 36 (21-72) IU/L Alkaline Phosphatase 81 (38-126) U/L B-Natriuretic Peptide 1640 H (<100) Total Protein 6.1 L (6.3-8.2) g/dL Albumin 3.4 L (3.5-5.0) g/dL Globulin 2.7 (1.7-4.1) g/dL Albumin/Globulin Ratio 1.3 (1.0-2.8) Chlamy pneumoniae PCR (Not Detect) Adenovirus (PCR) (Not Detect) B.parapertussis DNA PCR (Not Detect) Coronavirus OC43 (PCR) (Not Detect) Coronavirus HKU1 (PCR) (Not Detect) Coronavirus 229E (PCR) (Not Detect) Coronavirus NL63 (PCR) (Not Detect) Human Metapneumovir PCR (Not Detect) Influenza Type A (PCR) (Not Detect) Influenza Type B (PCR) (Not Detect) M. pneumoniae (PCR) (Not Detect) Parainfluenza 1 (PCR) (Not Detect) Parainfluenza 2 (PCR) (Not Detect) Parainfluenza 3 (PCR) (Not Detect) Parainfluenza 4 (PCR) (Not Detect) RSV (PCR) (Not Detect) Entero/Rhino (PCR) (Not Detect) 12/04/18 12/05/18 12/05/18 Range/Units 21:45 05:45 05:45 WBC (4.5-11.0) X10^3/uL RBC (4.5-5.9) X10^6/uL Hgb (13.5-17.5) g/dL Hct (41-53) % MCV (80-100) fL MCH (26-34) PG MCHC (30-36) % RDW (11.6-14.8) % Plt Count (150-400) X10^3/uL Neut % (Auto) (50-75) % Lymph % (Auto) (25-40) % [place] % (Auto) (3-14) % Eos % (Auto) (2-4) % Baso % (Auto) (0-2) % Neut # (Auto) (9851-7595) /uL Lymph # (Auto) (3925-2551) /uL [place] # (Auto) (0-900) /uL Eos # (Auto) (0-450) /uL Baso # (Auto) (0-100) /uL Sodium 140 (137-145) mmol/L Potassium 3.5 (3.4-5.1) mmol/L Chloride 104 (98-107) mmol/L Carbon Dioxide 28 (22-32) mmol/L BUN 13 (9-20) mg/dL Creatinine 1.00 (0.66-1.25) mg/dL Estimated GFR > 60.0 (>60) mL/min BUN/Creatinine Ratio 13.0 (6-22) Glucose 121 H (80-110) mg/dL Calcium 8.5 (8.4-10.2) mg/dL Magnesium 1.9 (1.6-2.3) mg/dL Total Bilirubin (0.2-1.3) mg/dL AST (17-59) IU/L ALT (21-72) IU/L Alkaline Phosphatase (38-126) U/L B-Natriuretic Peptide 1590 H (<100) Total Protein (6.3-8.2) g/dL Albumin (3.5-5.0) g/dL Globulin (1.7-4.1) g/dL Albumin/Globulin Ratio (1.0-2.8) Chlamy pneumoniae PCR Not detected (Not Detect) Adenovirus (PCR) Not detected (Not Detect) B.parapertussis DNA PCR Not detected (Not Detect) Coronavirus OC43 (PCR) Not detected (Not Detect) Coronavirus HKU1 (PCR) Not detected (Not Detect) Coronavirus 229E (PCR) Not detected (Not Detect) Coronavirus NL63 (PCR) Not detected (Not Detect) Human Metapneumovir PCR Not detected (Not Detect) Influenza Type A (PCR) Not detected (Not Detect) Influenza Type B (PCR) Not detected (Not Detect) M. pneumoniae (PCR) Not detected (Not Detect) Parainfluenza 1 (PCR) Not detected (Not Detect) Parainfluenza 2 (PCR) Not detected (Not Detect) Parainfluenza 3 (PCR) Not detected (Not Detect) Parainfluenza 4 (PCR) Not detected (Not Detect) RSV (PCR) Not detected (Not Detect) Entero/Rhino (PCR) Not detected (Not Detect) Point of Care Testing Glucose POC 121 Discharge Plan Departure Patient Disposition: Admitted As Inpatient Clinical Impression: Acute exacerbation of CHF (congestive heart failure) Qualifiers: Heart failure type: unspecified Qualified Code(s): I50.9 - Heart failure, unspecified Discharge Date/Time: 12/04/18 21:01 Interventions: ED Discharge Assessment Last Done: 12/04/18 21:00 Admit Date/Time: 12/04/18 20:17 Admit Provider: oRmina Mistry <Aiden Ferrer DO - Last Filed: 12/05/18 07:05> Cosign ED Attending Cosignature Attestation: I was available for consultation during this patient's emergency department encounter
[2018-12-04] MEDS: LOPERAMIDE 2 MG/10 ML UDC 4 MG PO (17:33)
[2018-12-04] MEDS: SODIUM CHLORIDE 0.9% 1,000 ML 500 ML IV (17:33)
[2018-12-04] MEDS: FUROSEMIDE 40 MG/4 ML VIAL IV (17:34)
[2018-12-04 17:40] LABS: Add Manual Diff / Slide Review NO; Basophils Absolute Auto 100 /uL (0-100); Basophils Percent Auto 1.1 % (0-2); Eosinophils Absolute Auto 400 /uL (0-450); Eosinophils Percent Auto 4.3 % (2-4); Hemoglobin 12.3 g/dL (13.5-17.5); Lymphocytes Absolute Auto 1100 /uL (1100-4500); Lymphocytes Percent Auto 12.6 % (25-40); Mean Corpuscular HGB Conc 32.4 % (30-36); Mean Corpuscular Volume 98.6 fL (80-100); Monocytes Absolute Auto 500 /uL (0-900); Neutrophils Absolute Auto 6900 /uL (1500-7000); Platelet Count 235 X10^3/uL (150-400); Red Blood Cell Count 3.85 X10^6/uL (4.5-5.9); Red Cell Distribution Width 19.3 % (11.6-14.8)
[2018-12-04 17:52] LABS: Magnesium 2.3 mg/dL (1.6-2.3)
[2018-12-04 17:57] LABS: B Type Natriuretic Peptide 1640 (<100)
[2018-12-04 17:58] LABS: Alanine Aminotransferase 36 IU/L (21-72); Albumin 3.4 g/dL (3.5-5.0); Albumin Globulin Ratio 1.3 (1.0-2.8); Alkaline Phosphatase 81 U/L (38-126); Aspartate Aminotransferase 24 IU/L (17-59); Bilirubin Total 1.9 mg/dL (0.2-1.3); Blood Urea Nitrogen 14 mg/dL (9-20); Calcium 8.5 mg/dL (8.4-10.2); Carbon Dioxide 30 mmol/L (22-32); Chloride 101 mmol/L (98-107); Estimated Glomerular Filt Rate > 60.0 mL/min (>60); Globulin 2.7 g/dL (1.7-4.1); Glucose 133 mg/dL (80-110); HEMOLYSIS < 15 (0-50); Potassium 3.9 mmol/L (3.4-5.1); Sodium 140 mmol/L (137-145); Total Protein 6.1 g/dL (6.3-8.2)
--- NOTE | 2018-12-04 20:57 | PC.NURSE ---
PT caregiver Kimmy is pt transportation, upon DC please call her at [phone].
[2018-12-04 23:24] LABS: Adenovirus Not Detected (Not Detect)
[2018-12-04 23:25] LABS: Bordetella pertussis Not Detected (Not Detect); Chlamydophila pneumoniae Not Detected (Not Detect); Coronavirus 229E Not Detected (Not Detect); Coronavirus HKU1 Not Detected (Not Detect); Coronavirus NL 63 Not Detected (Not Detect); Coronavirus OC43 Not Detected (Not Detect); Human Metapneumovirus Not Detected (Not Detect); Human Rhinovirus/Enterovirus Not Detected (Not Detect); Influenza A Not Detected (Not Detect); Influenza B Not Detected (Not Detect); Mycoplasma pneumoniae Not Detected (Not Detect); Parainfluenza Virus 1 Not Detected (Not Detect); Parainfluenza Virus 2 Not Detected (Not Detect); Parainfluenza Virus 3 Not Detected (Not Detect); Parainfluenza Virus 4 Not Detected (Not Detect); Respiratory Syncytial Virus Not Detected (Not Detect)
[2018-12-05] VITALS (15 sets, daily range): BP systolic 123–155; BP diastolic 57–99; PULSE 77–97; RESP 16–22; TEMP 36.2–36.7; O2SAT 89–100
--- NOTE | 2018-12-05 | DI.ECHO.S_ITS ---
[facility]---------+ [facility] +---------+ : : [address] : : : : [id number] : : : : Phone: [phone] Echocardiogram Report + + :Name: RACH EVANS Study Date: 12/06/2018 Height: 68 in : :[facility] Weight: 195 lb : : Gender: Male BSA: 2.0 m2 : :: 1940 Age: 78 yrs BP: 129/74 mmHg: :Reason For Study: SOB : :Ordering Physician: Reyna : :Trevor Performed By: Shari Reardon : :Referring: JACKSON CONTI : + + Interpretation Summary The left ventricle is markedly dilated. The ejection fraction is estimated to be 25-30%. There is basal inferior wall akinesis. There is moderate to severe global hypokinesis of the left ventricle. There is severe biatrial enlargement. There is moderate mitral regurgitation. There is moderate aortic regurgitation. There is moderate tricuspid regurgitation. The right ventricular systolic pressure is estimated to be at least 58 mmHg based on an estimated right atrial pressure of 15 mm Hg. The aortic root is moderately dilated. Left ventricular function has slightly worsened compared to the previous exam. Procedure: A two-dimensional transthoracic echocardiogram with color flow and Doppler was performed. The study quality was technically adequate. Comparison is made with the echocardiogram of 8-13-14. The patient was in atrial fibrillation with heart rates between 75-90 bpm during the exam. Left Ventricle: The left ventricle is markedly dilated. There is normal left ventricular wall thickness. The ejection fraction is estimated to be 25-30%. Left ventricular function has slightly worsened compared to the previous exam. There is basal inferior wall akinesis. There is moderate to severe global hypokinesis of the left ventricle. Diastolic function could not be accurately assessed due to atrial fibrillation. Right Ventricle: The right ventricle grossly appears normal in size with probable normal systolic function. Atria: The left atrium is severely dilated. There is severe biatrial enlargement. The right atrium is severely dilated. The interatrial septum is intact with no evidence for an atrial septal defect. Mitral Valve: The mitral valve leaflets appear mildly thickened, but open well. There is moderate mitral regurgitation. Aortic Valve: The aortic valve opens well. There is moderate aortic regurgitation. Tricuspid Valve: The tricuspid valve leaflets are thin and pliable. There is moderate tricuspid regurgitation. The right ventricular systolic pressure is estimated to be at least 58 mmHg based on an estimated right atrial pressure of 15 mm Hg. Pulmonic Valve: The pulmonic valve is not well visualized. There is trace pulmonic regurgitation. Great Vessels: The aortic root is moderately dilated. The ascending aorta is mildly enlarged. The aortic arch is at the upper limits of normal in size. The IVC is dilated (diameter is greater than 2.1 cm) and it collapses less than 50% with a sniff. This suggests a high right atrial pressure of 15 mm Hg. Pericardium/ Pleura There is no pericardial effusion. There is no pleural effusion. MMode/2D Measurements & Calculations LVIDd: 7.0 cm Ao root diam: 4.1 cm LVIDs: 5.9 cm Aortic Jxn: 3.6 cm FS: 15.4 % asc Aorta Diam: 4.0 cm EPSS: 2.7 cm Ao Arch Diam (Prox Trans): 3.2 cm IVSd: 1.1 cm LVPWd: 0.75 cm LV maher. diameter/BSA (cm/m^2): 3.5 LV sys. diameter/BSA (cm/m^2): 2.9 LA dimension: 5.2 cm RA long axis: 7.3 cm LA A2 area: 41.3 cm2 RA area: 36.5 cm2 LA A4 area: 37.4 cm2 RA vol: 155.5 ml LA length (vol): 7.4 cm RA : 76.9 ml/m2 LA vol: 176.9 ml IVC diam: 3.2 cm LA vol index: 87.5 ml/m2 RVDd major: 6.2 cm RVD1 (basal): 4.0 cm RVD2 (mid): 2.8 cm Doppler Measurements & Calculations Ao V2 max: 121.9 cm/sec AI P1/2t: 569.3 msec Ao V2 mean: 78.6 cm/sec AI dec slope: 194.2 cm/sec2 Ao max P.9 mmHg Ao mean P.9 mmHg Ao V2 VTI: 20.1 cm MV P1/2t: 43.5 msec TR max jasbir: 328.2 cm/sec MR ERO: 0.32 cm2 TR max P.1 mmHg PA V2 max: 34.6 cm/sec PA V2 mean: 20.7 cm/sec PA mean P.22 mmHg PA Accel Time: 0.11 sec MV V2 mean: 41.9 cm/sec MV P1/2t max jasbir: 106.7 cm/sec MV mean P.3 mmHg MVA(P1/2t): 5.1 cm2 MV V2 VTI: 19.5 cm MR flow rate: 131.9 cm3/sec MR PISA radius: 0.74 cm Reading Physician:05:51 PM
--- NOTE | 2018-12-05 00:16 | PM.HP.1 ---
History of Present Illness Date Patient Seen: 12/04/18 Time Patient Seen: 23:31 Chief complaint: short of breath, diarrhea, chest issues Narrative: The patient is a 78-year-old male with PMH of HTN, DM 2T, HFrEF, cronic AFIB (AC w/ Xarelto), HLD, CKD, chronic left ankle pain (2/2 fall / ankle injury, 1975), psychiatric illness (depression, schizotypical personality disorder), prior 30 pack year history of tobacco dependence (quit 1979), and current cannabis use. Patient is a poor historian, HPI ascertained from there to interview and review of records. Patient presented to the ED on 12/04/2018 at 3:37 p.m., respectively, out of concern for shortness of breath. Symptom initially noted 5 days ago, progressively worsening. Associated symptoms include cough without significant or worsening purulence, wheezing, and peripheral edema. In the past 2-3 days reports waking up from sleep with palpitations and dizziness. Experienced episodes of nausea, but no vomiting or abdominal pain. Reports having intermittent episodes of diarrhea, not entirely clear if there is a degree of chronicity; however, has had 1 episode of defecation of normal consistency and was guaiac negative since admission. Denies chest pain, pleurisy, diaphoresis, syncopal events, malaise, myopathy, myalgias, and s/s of acute blood loss. Shortness of breath or dyspnea is worsened with exertion. ED Work-Up Presenting VS: T 97.6? F, BP 153/82, HR 109, RR 20, SpO2 95% RA Initial Labs: WBC 9, HGB 12.3, PLT 235, NA 140 K 3.9, Mg 2.3, Cl 101, Ca 8.5, BUN 14, Cr 1.0, T. Bili 1.9, AST / ALT / Alk Phos - WNL BNP 1640 CXR significant for mild right lateral base lower pleural parenchymal density, which is increased, could indicate pneumonitis. No pleural effusion or pneumothorax. Cardiomegaly. Follow-up plain films of the chest are recommended to ensure resolution, and to exclude underlying or central malignancy. EKG, 12/04/2018 1554... atrial fibrillation (v-rate 95), moderate intraventricular conduction delay, non-specific T wave changes. 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) Hypertension (Chronic) Schizotypal personality disorder (Chronic) Surgical History Status post ORIF of fracture of ankle (Resolved) Social History household members: none Smoking Status: Former smoker alcohol intake: current Family & Social History Family History Mother Heart disease Father No known health problems Brother Hypertension Alcohol abuse Family history unavailable: No Social History: household members none Prior Living Arrangements RV Safety & Behavioral: Feels Safe in Current Yes Environment Been Physically Hurt or No Threatened By a Person Suicidal Ideation Description None Tobacco & Substance use: Tobacco type cannabis/marijuana Smoking Status Former smoker alcohol intake current alcohol intake frequency a few times a month Substance Use Type marijuana Meds Home Medications Medication Instructions Recorded Confirmed Type atorvastatin 20 mg PO BEDTIME 12/04/18 12/04/18 History calcium carbonate [Tums] 500 mg PO BID 12/04/18 12/04/18 History carvedilol 25 mg PO BID 12/04/18 12/04/18 History cholecalciferol (vitamin D3) 2,000 unit PO BEDTIME 12/04/18 12/04/18 History [Vitamin D3] docusate sodium 250 mg PO QNOON 12/04/18 12/04/18 History furosemide 20 mg PO DAILY 12/04/18 12/04/18 History gabapentin 300 mg PO BEDTIME 12/04/18 12/04/18 History lisinopril 10 mg PO DAILY 12/04/18 12/04/18 History potassium chloride 20 meq PO QNOON 12/04/18 12/04/18 History quetiapine 25 mg PO BEDTIME 12/04/18 12/04/18 History rivaroxaban [Xarelto] 20 mg PO QPM 12/04/18 12/04/18 History sertraline 50 mg PO DAILY 12/04/18 12/04/18 History spironolactone 12.5 mg PO DAILY 12/04/18 12/04/18 History Allergies Allergy/AdvReac Type Severity Reaction Status Date / Time Penicillins [PENICILLINS] Allergy Unknown Verified 12/04/18 19:07 Review of Systems Review of Systems All systems reviewed & are unremarkable except as noted in HPI and below Exam Vital Signs (past 8 hours): - 12/04/18 16:30 12/04/18 17:15 12/04/18 17:32 Temperature Pulse Rate 101 H 93 H 93 H Respiratory Rate 19 23 17 Blood Pressure Blood Pressure [Left Arm] 154/85 H 146/81 H Blood Pressure [Right Arm] Pulse Oximetry 91 97 93 12/04/18 18:52 12/04/18 19:10 12/04/18 20:00 Temperature Pulse Rate 103 H 99 H Respiratory Rate 24 23 Blood Pressure Blood Pressure [Left Arm] 157/78 H Blood Pressure [Right Arm] 164/83 H Pulse Oximetry 88 L 96 96 12/04/18 20:30 12/04/18 21:10 12/04/18 22:01 Temperature 98.0 F Pulse Rate 93 H 119 H Respiratory Rate 23 22 Blood Pressure 150/90 H Blood Pressure [Left Arm] Blood Pressure [Right Arm] 157/69 H Pulse Oximetry 92 98 98 12/05/18 00:06 Temperature 97.6 F Pulse Rate 91 H Respiratory Rate 20 Blood Pressure 135/82 Blood Pressure [Left Arm] Blood Pressure [Right Arm] Pulse Oximetry 92 Oxygen Delivery Method Room Air Oxygen Flow Rate 0 Narrative Exam Narrative: Constitutional: Appears stated age, no acute distress at rest, significant conversation and exertional dyspnea noted Neurologic: awake and alert, oriented to self and place, not entirely aware reason for hospital admission, forgetful speech is clear, no facial or dysarthria, no tremor or fasciculations Head: NC, AT Eyes: pupils equal and reactive, extraocular movements intact Ears: normal appearance of external ears, diminished hearing acuity Nose: external nose normal, no rhinorrhea or epistaxis Throat: dry, oropharynx w/o exudate, oropharynx mildly injected, poor dentition / oral decay / missing teeth Neck: no masses, lymphadenopathy, or JVD Chest / Respiratory: equal chest rise, tachypnea and dyspnea with conversation and mild exertion, no palpable chest discomfort, on room air nonproductive cough, clear upper lobes, course right lower lobe posteriorly, no wheezing or adventitious breath sounds Heart / CV: S1S2, no S3, no murmur Abdomen / GI: round, NT, ND, + BS, no organomegaly : no suprapubic tenderness, no CVA tenderness Peripheral / Vascular: warm to touch, DP and PT pulses palpable, bilateral lower extremity edema 3+, no calf tenderness Musc: full ROM of upper and lower extremities, adequate muscle tone and bulk Skin: no ecchymosis or suspicious lesions / ulcers Objective Labs Result Diagrams: 12/04/18 17:02 12/04/18 17:02 Labs: Laboratory Results - last 24 hr 12/04/18 12/04/18 12/04/18 17:02 17:02 17:02 WBC 9.0 RBC 3.85 L Hgb 12.3 L Hct 38.0 L MCV 98.6 MCH 32.0 MCHC 32.4 RDW 19.3 H Plt Count 235 Neut % (Auto) 76.0 H Lymph % (Auto) 12.6 L [place] % (Auto) 6.0 Eos % (Auto) 4.3 H Baso % (Auto) 1.1 Neut # (Auto) 6900 Lymph # (Auto) 1100 [place] # (Auto) 500 Eos # (Auto) 400 Baso # (Auto) 100 Sodium 140 Potassium 3.9 Chloride 101 Carbon Dioxide 30 BUN 14 Creatinine 1.00 Estimated GFR > 60.0 BUN/Creatinine Ratio 14.0 Glucose 133 H Calcium 8.5 Magnesium 2.3 Total Bilirubin 1.9 H AST 24 ALT 36 Alkaline Phosphatase 81 B-Natriuretic Peptide 1640 H Total Protein 6.1 L Albumin 3.4 L Globulin 2.7 Albumin/Globulin Ratio 1.3 Chlamy pneumoniae PCR Adenovirus (PCR) B.parapertussis DNA PCR Coronavirus OC43 (PCR) Coronavirus HKU1 (PCR) Coronavirus 229E (PCR) Coronavirus NL63 (PCR) Human Metapneumovir PCR Influenza Type A (PCR) Influenza Type B (PCR) M. pneumoniae (PCR) Parainfluenza 1 (PCR) Parainfluenza 2 (PCR) Parainfluenza 3 (PCR) Parainfluenza 4 (PCR) RSV (PCR) Entero/Rhino (PCR) 12/04/18 21:45 WBC RBC Hgb Hct MCV MCH MCHC RDW Plt Count Neut % (Auto) Lymph % (Auto) [place] % (Auto) Eos % (Auto) Baso % (Auto) Neut # (Auto) Lymph # (Auto) [place] # (Auto) Eos # (Auto) Baso # (Auto) Sodium Potassium Chloride Carbon Dioxide BUN Creatinine Estimated GFR BUN/Creatinine Ratio Glucose Calcium Magnesium Total Bilirubin AST ALT Alkaline Phosphatase B-Natriuretic Peptide Total Protein Albumin Globulin Albumin/Globulin Ratio Chlamy pneumoniae PCR Not detected Adenovirus (PCR) Not detected B.parapertussis DNA PCR Not detected Coronavirus OC43 (PCR) Not detected Coronavirus HKU1 (PCR) Not detected Coronavirus 229E (PCR) Not detected Coronavirus NL63 (PCR) Not detected Human Metapneumovir PCR Not detected Influenza Type A (PCR) Not detected Influenza Type B (PCR) Not detected M. pneumoniae (PCR) Not detected Parainfluenza 1 (PCR) Not detected Parainfluenza 2 (PCR) Not detected Parainfluenza 3 (PCR) Not detected Parainfluenza 4 (PCR) Not detected RSV (PCR) Not detected Entero/Rhino (PCR) Not detected Assessment & Plan Assessment & Plan narrative: Acute on chronic systolic heart failure, present on admission LVEF is not known, last reported echo in 2015. Lasix was decreased on 09/27/2018 from 40 mg to 20 mg QD. CXR significant for mild RLL pleural parenchymal density, which is increased from prior, could indicate pneumonitis. Cardiomegaly present. - Telemetry monitoring - Bumex 0.5 mg q.8 hours x3 doses, thereafter re-evaluate patient in volume status, consider transitioning to oral regimen - Strict I/O montoring. Daily weight. 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 PE[employer] FINANCIALS CONSULTANT on carvedilol 25 mg b.i.d. for rate control and Xarelto for anticoagulation - tele monitoring - give metoprolol 5 mg IV x1 - resume [employer] FIN[employer]CI[employer] CONSULTANT carvedilol and Xarelto (Hgb 12.3, Plt 235) Pneumonitis, acute, suspected No fever or leukocytosis. No signs of SIRS. - Check PCT and viral respiratory panel - Consider repeating CXR in 48 hours Essential hypertension, chronic condition, uncontrolled BP mildly elevated on presentation, likely reflecting hypervolemic state [employer]OP[employer] FINANCIALS CONSULTANT on carvedilol 25 mg BID, lisinopril 10 mg QD, Lasix 20 mg QD, and spironolactone 12.5 mg QD - Resume carvedilol and lisinopril in a.m. - Hold Lasix and spironolactone for the next 24 hr, then re-evaluate. Patient is being diuresed with Bumex. - goal SBP 120-140 mmHg DM 2T w/ acute hyperglycemia, controlled chronic condition A1C 6.8, controlled. [employer] FIN[employer]CI[employer] CONSULTANT regimen consists of metformin to 2000 mg daily and Levemir 10 units QD - Stop metformin - AC/HS glucose checks, supplement w/ SSI low dose - Resume levemir per [employer] FIN[employer]CI[employer] CONSULTANT regimen - Notify provider of hypoglycemia Dyslipidemia, controlled chronic condition - Resume PT regimen of atorvastatin Quality VTE Deep Vein Thrombosis/Pulmonary Embolism Present on Admission: No
[2018-12-05] MEDS: METOPROLOL TARTRATE 5 MG/5 ML INJ IV (00:17)
[2018-12-05] MEDS: BUMETANIDE 1 MG/4 ML VIAL 0.5 MG IV ×3 (00:18→16:53)
[2018-12-05] MEDS: QUETIAPINE 25 MG TABLET PO ×2 (00:18→21:54)
[2018-12-05] MEDS: ATORVASTATIN 20 MG TABLET PO ×2 (00:18→21:55)
--- NOTE | 2018-12-05 00:52 | PC.NURSE ---
Assumed care of pt at 2300 on 12/04/18. Pt resting in bed during bedside hand-off. A/O but forgetful and has difficulty holding conversation. BP and pulse elevated. Metoprolol and Bumex given. Metoprolol administered with ICU monitoring Tele and BP taken before and after. Pt tolerated well. Noted SOB at rest. CPOX, sats 90-100% RA. Urinal at bedside. Bed alarm on. Door open for close monitoring.
[2018-12-05 06:42] LABS: B Type Natriuretic Peptide 1590 (<100)
[2018-12-05 06:46] LABS: Blood Urea Nitrogen 13 mg/dL (9-20); Calcium 8.5 mg/dL (8.4-10.2); Carbon Dioxide 28 mmol/L (22-32); Chloride 104 mmol/L (98-107); Estimated Glomerular Filt Rate > 60.0 mL/min (>60); Glucose 121 mg/dL (80-110); HEMOLYSIS 31 (0-50); Magnesium 1.9 mg/dL (1.6-2.3); Potassium 3.5 mmol/L (3.4-5.1); Sodium 140 mmol/L (137-145)
[2018-12-05 07:06] LABS: Procalcitonin 0.07 ng/mL (<0.5)
[2018-12-05] MEDS: LISINOPRIL 10 MG TABLET PO (08:39)
[2018-12-05] MEDS: CARVEDILOL 25 MG TABLET PO ×2 (08:39→21:55)
--- NOTE | 2018-12-05 08:45 | CM.DANOTE ---
DCP: Case received, EMR reviewed and met with patient. Introduced self and role. Information regarding patient obtained from Ifeoma at [facility]. Additional information obtained from patient, as well as available information pertaining to patient's history. Patient is a 78 year old male who admitted yesterday evening to the care of the hospitalist team. PCP: Dr. Murray Payer: confirmed: Medicare/Medicaid. Patient came to hospital via family vehicle due to symptoms of increased shortness of breath. Patient is on oxygen at this time. Possible Pneumonitis. Has history of HTN, as well as Diabetes. He also has history of alcohol use, according to Ifeoma at [facility]. Patient has mental health history, Personality Disorder. Spoke briefly with patient in room. Alert and oriented, on oxygen, was having difficulty breathing. Unshaven appearance. Stated that he has not had oxygen at home, and said he lives in a trailer in [place] that needs repair. Asked him if he had friends or family to help him with repairs. Has a friend that lives next door that he stated helps with repairs. He also stated that he has caregivers that come into the home to help him with meals, drives him to appointments. Spoke to Ifeoma at [facility]. Her phone number is: [phone]. She stated that his caregivers come from [facility], and Kimmy is in charge of agency. Her number is: [phone]. Ifeoma mentioned concerns about patient letting homeless people into his home, as well as him being a hoarder. She mentioned that he does have history of alcohol use, unsure as to how much he drinks. There are non-compliance issues with medication management, and hygiene issues. She mentioned that he also has a mental health counselor, his name is Job Franks, and he is also through [facility]. P: Will hand over case to GRAIN MILL WORKER, for patient has some social service needs that are complex. He may qualify for retirement if he is inpatient for 3 days, but is uncertain if patient would consent to go. Maribell Vargas RN/Control Operator Flow [employer]
[2018-12-05 09:24] LABS: Add Manual Diff / Slide Review NO; Basophils Absolute Auto 100 /uL (0-100); Basophils Percent Auto 1.3 % (0-2); Eosinophils Absolute Auto 500 /uL (0-450); Eosinophils Percent Auto 6.2 % (2-4); Hematocrit 42.5 % (41-53); Hemoglobin 13.5 g/dL (13.5-17.5); Lymphocytes Absolute Auto 1300 /uL (1100-4500); Lymphocytes Percent Auto 14.9 % (25-40); Mean Corpuscular HGB Conc 31.8 % (30-36); Mean Corpuscular Hemoglobin 31.6 PG (26-34); Mean Corpuscular Volume 99.5 fL (80-100); Monocytes Absolute Auto 600 /uL (0-900); Monocytes Percent Auto 6.7 % (3-14); Neutrophils Absolute Auto 6100 /uL (1500-7000); Neutrophils Percent Auto 70.9 % (50-75); Platelet Count 262 X10^3/uL (150-400); Red Blood Cell Count 4.27 X10^6/uL (4.5-5.9); Red Cell Distribution Width 20.1 % (11.6-14.8); White Blood Cell Count 8.6 X10^3/uL (4.5-11.0)
[2018-12-05 10:15] LABS: Procalcitonin 0.07 ng/mL (<0.5)
[2018-12-05 11:03] LABS: Anisocytosis 2+
[2018-12-05 11:04] LABS: Burr Cells 1+
[2018-12-05] MEDS: INSULIN ASPART 100 UNIT/ML INSULN PEN SUBCUT ×2 (12:56→17:09)
[2018-12-05] MEDS: RIVAROXABAN 10 MG TABLET 20 MG PO (17:26)
--- NOTE | 2018-12-05 19:50 | PM.PN.1 ---
Subjective Date Patient Seen: 12/05/18 Interval history: Anam Davidson is a 78-year-old male with a past medical history significant for hypertension, hyperlipidemia, diabetes mellitus type 2, HFrEF, chronic atrial fibrillation anticoagulated on Xarelto, CKD, chronic left ankle pain (2/2 fall / ankle injury, 1975), psychiatric illness (depression, schizotypical personality disorder), prior 30 pack year history of tobacco dependence (quit 1979), and current cannabis use who presented for worsening shortness of breath. The patient is resting in bedside chair comfortably. He has no complaints other than subjective shortness of breath. He endorses orthopnea. He exhibits an odd breathing pattern and appears dyspneic at times but then breathes normal at other times when he is distracted. He headache, sore throat, cough, chest pain, abdominal pain, nausea, vomiting, fever, chills, dysuria, diarrhea or constipation. He has very tangential thinking and seems to be having active schizophrenic hallucinations and is talking about extraterrestrial life. He is voiding without difficulty. He is up ambulating without assistance. Exam Vital Signs (past 8 hours): - 12/05/18 16:00 Temperature 98.0 F Pulse Rate 80 Respiratory Rate 20 Blood Pressure 137/74 Pulse Oximetry 98 Oxygen Delivery Method Room Air Oxygen Flow Rate 1 Narrative Exam Narrative: General: Elderly gentleman, dishelved appearing, in no acute distress, well-developed, well-nourished, tangential thinking. HEENT: Normocephalic, atraumatic. External ears without defect. Pupils equal, round, and reactive to light. Anicteric sclerae, moist conjunctivae, and no lid lag. Neck: Supple with full range of motion. JVD. No lymphadenopathy or thyromegaly. Cardiovascular: Heart sounds distant but appears regular rate and rhythm without murmurs, rubs, or gallops appreciated. Pulmonary: Clear to auscultation bilaterally with bibasilar crackles. No wheezes, or rhonchi. Normal respiratory effort with no use of accessory muscles. Abdomen: Bowel tones present. Soft, nontender, nondistended. No hepatosplenomegaly or masses appreciated. Extremities: No clubbing or cyanosis. Moderate bilateral pretibial edema. Skin: Normal temperature, turgor, and texture; no rash, ulcers, or subcutaneous nodules appreciated. Neurological: Cranial nerves grossly intact. Psychiatric: Normal mood and affect. Alert and oriented to person and place. Objective Labs Result Diagrams: 12/05/18 08:44 12/06/18 05:45 Labs: Laboratory Results - last 24 hr 12/04/18 12/05/18 12/05/18 21:45 05:45 05:45 WBC RBC Hgb Hct MCV MCH MCHC RDW Plt Count Neut % (Auto) Lymph % (Auto) [place] % (Auto) Eos % (Auto) Baso % (Auto) Neut # (Auto) Lymph # (Auto) [place] # (Auto) Eos # (Auto) Baso # (Auto) RBC Morphology Anisocytosis Binh Cells Sodium 140 Potassium 3.5 Chloride 104 Carbon Dioxide 28 BUN 13 Creatinine 1.00 Estimated GFR > 60.0 BUN/Creatinine Ratio 13.0 Glucose 121 H Calcium 8.5 Magnesium 1.9 B-Natriuretic Peptide 1590 H Procalcitonin Chlamy pneumoniae PCR Not detected Adenovirus (PCR) Not detected B.parapertussis DNA PCR Not detected Coronavirus OC43 (PCR) Not detected Coronavirus HKU1 (PCR) Not detected Coronavirus 229E (PCR) Not detected Coronavirus NL63 (PCR) Not detected Human Metapneumovir PCR Not detected Influenza Type A (PCR) Not detected Influenza Type B (PCR) Not detected M. pneumoniae (PCR) Not detected Parainfluenza 1 (PCR) Not detected Parainfluenza 2 (PCR) Not detected Parainfluenza 3 (PCR) Not detected Parainfluenza 4 (PCR) Not detected RSV (PCR) Not detected Entero/Rhino (PCR) Not detected 12/05/18 12/05/18 12/05/18 05:45 08:44 08:44 WBC 8.6 RBC 4.27 L Hgb 13.5 Hct 42.5 MCV 99.5 MCH 31.6 MCHC 31.8 RDW 20.1 H Plt Count 262 Neut % (Auto) 70.9 Lymph % (Auto) 14.9 L [place] % (Auto) 6.7 Eos % (Auto) 6.2 H Baso % (Auto) 1.3 Neut # (Auto) 6100 Lymph # (Auto) 1300 [place] # (Auto) 600 Eos # (Auto) 500 H Baso # (Auto) 100 RBC Morphology See below Anisocytosis 2+ H Binh Cells 1+ H Sodium Potassium Chloride Carbon Dioxide BUN Creatinine Estimated GFR BUN/Creatinine Ratio Glucose Calcium Magnesium B-Natriuretic Peptide Procalcitonin 0.07 0.07 Chlamy pneumoniae PCR Adenovirus (PCR) B.parapertussis DNA PCR Coronavirus OC43 (PCR) Coronavirus HKU1 (PCR) Coronavirus 229E (PCR) Coronavirus NL63 (PCR) Human Metapneumovir PCR Influenza Type A (PCR) Influenza Type B (PCR) M. pneumoniae (PCR) Parainfluenza 1 (PCR) Parainfluenza 2 (PCR) Parainfluenza 3 (PCR) Parainfluenza 4 (PCR) RSV (PCR) Entero/Rhino (PCR) Assessment & Plan Assessment & Plan narrative: Anam Davidson is a 78-year-old male with a past medical history significant for hypertension, hyperlipidemia, diabetes mellitus type 2, HFrEF, chronic atrial fibrillation anticoagulated on Xarelto, CKD, chronic left ankle pain (2/2 fall / ankle injury, 1975), psychiatric illness (depression, schizotypical personality disorder), prior 30 pack year history of tobacco dependence (quit 1979), and current cannabis use who presented for worsening shortness of breath. 1. Acute on chronic systolic heart failure, present on admission. Active. -LVEF is not known, last reported echo in 2015. Lasix was decreased on 09/27/2018 from 40 mg to 20 mg QD. -CXR interpreted by me demonstrates significant pulmonary edema with Jody B lines and cephalization. Also noted per Radiology, RLL pleural parenchymal density, which is increased from prior, could indicate pneumonitis. Cardiomegaly present. -Ordered echocardiogram, pending. -Continue to monitor on telemetry. -Continue Bumex 0.5 mg q.8 hours x3 doses, thereafter re-evaluate patient in volume status, consider transitioning to oral regimen -Strict I/O montoring. Daily weight. -Continue home carvedilol, lisinopril, and spironolactone. -Monitor renal function and electrolytes with active diuresis, replete e-lyte deficiencies accordingly. 2. Chronic atrial fibrillation with RVR, present on admission. RVR resolved. -Patient had mild rapid ventricular response with HR 120 bpm;Received metoprolol 5 mg IV x1 with good response. 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 for rate control and Xarelto for anticoagulation. -Continue to monitor closely on telemetry. -Continue home carvedilol and Xarelto. 3. Possible acute pneumonitis, present on admission. Resolved. -No fever or leukocytosis. No signs of SIRS. -Procalcitonin respiratory viral PCR negative. -Will consider repeating CXR in next 48 hours depending upon respiratory status. 4. Essential hypertension, chronic condition, uncontrolled -BP mildly elevated on admission which is likely reflective of hypervolemic state. Goal SBP 120-140 mmHg -Continue carvedilol 25 mg twice daily and lisinopril 10 mg daily. -Hold Lasix and spironolactone for the next 24 hr, then re-evaluate. Patient is being diuresed with Bumex. 5. Diabetes mellitus type 2, insulin using, present on admission. Stable. -Hemoglobin A1C 6.8 in 2017. Repeat hemoglobin A1c, pending. -Held metformin. -AC/HS glucose checks, supplement low-dose correctional scale insulin. -Resumed levemir per outpatient note from PCP dated 08/2018. -Notify provider of hypoglycemia 6. Dyslipidemia, present on admission. Stable. -Continue home atorvastatin 20 mg daily bedtime. Disposition: Likely discharge in 1-2 days depending on improvement in dyspnea with diuresis. Quality VTE Deep Vein Thrombosis/Pulmonary Embolism Present on Admission: No
[2018-12-05 21:31] LABS: BUN Creatinine Ratio 14.5 (6-22); Blood Urea Nitrogen 16 mg/dL (9-20); Calcium 8.5 mg/dL (8.4-10.2); Carbon Dioxide 27 mmol/L (22-32); Chloride 102 mmol/L (98-107); Estimated Glomerular Filt Rate > 60.0 mL/min (>60); Glucose 124 mg/dL (80-110); HEMOLYSIS 48 (0-50); Potassium 3.9 mmol/L (3.4-5.1); Sodium 139 mmol/L (137-145)
[2018-12-05] MEDS: CHOLECALCIFEROL (VITAMIN D3) 1,000 UNIT TABLET 2000 UNIT PO (21:54)
[2018-12-05] MEDS: ALBUTEROL 2.5 MG/3 ML NEB (ADULT) INH (22:10)
[2018-12-06] VITALS (13 sets, daily range): BP systolic 121–136; BP diastolic 68–89; PULSE 81–93; RESP 16–20; TEMP 36.4–37.3; O2SAT 94–100
--- NOTE | 2018-12-06 00:20 | PC.NURSE ---
maya skinner pt able to only speak 4-5 words at a time. Assisted pt to bathroom, was SOB. RA sats at rest 94-100%. at 23:00, O2 added at 2 L with no change in work of breathing.
[2018-12-06 06:37] LABS: Blood Urea Nitrogen 16 mg/dL (9-20); Calcium 8.2 mg/dL (8.4-10.2); Carbon Dioxide 25 mmol/L (22-32); Chloride 100 mmol/L (98-107); Estimated Glomerular Filt Rate > 60.0 mL/min (>60); Glucose 124 mg/dL (80-110); HEMOLYSIS < 15 (0-50); Potassium 3.6 mmol/L (3.4-5.1); Sodium 136 mmol/L (137-145)
--- NOTE | 2018-12-06 08:01 | PC.NURSE ---
Addendum entered by Kandy Gutierrez R.N. 12/06/18 13:13: NEURO - speech pathology in for cognitive eval. Original Note: Addendum entered by Kandy Gutierrez R.N. 12/06/18 11:07: CARDIAC - echo in progress. Original Note: Addendum entered by Kandy Gutierrez R.N. 12/06/18 10:44: RESP - pt did desat to upper 80's when asleep RA, 02 NC replaced at 1L and sat 95%. Original Note: Addendum entered by Kandy Gutierrez R.N. 12/06/18 10:19: PAIN - pt req a sleeping medication to help relax, had ret bed after breakfast, discussed medications and giveen 650mg tylenol. 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
[2018-12-06] MEDS: CARVEDILOL 25 MG TABLET PO ×2 (08:28→20:16)
[2018-12-06] MEDS: LISINOPRIL 10 MG TABLET PO (08:28)
[2018-12-06] MEDS: INSULIN ASPART 100 UNIT/ML INSULN PEN SUBCUT ×3 (08:29→17:03)
[2018-12-06] MEDS: FUROSEMIDE 40 MG TABLET PO (09:39)
[2018-12-06] MEDS: ACETAMINOPHEN 325 MG TABLET 650 MG PO (09:45)
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
--- NOTE | 2018-12-06 15:11 | PT.IIE ---
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 Able to make needs known. Mobility and Gait Pt was an independent ambulator at home and community with a SPC from time to time. Activities of Daily Living and IADL's Pt was independent for ADLs and IADLs. Pt has a CG comes in Mon, Wed, Fri for meal preparation and able to take him to doctor's appt. Social History Household Members none Living Arrangements RV Number of Floors (Floors) One Floor Number of Stairs To Enter/Railing? 3 [place] B railing Home Environment Standard Height Toilet Walk in Shower Home Equipment Straight Cane Grab Bars Near Toilet Grab Bars In Shower Employment Status Retired Additional Social History Comment Per SW, Pt has been living in his broken down trailer for quite some time, parked near the [employer] in. His trailer is in terrible condition. Pt has a very dedicated STEWART caregiver, Kimmy, that visits weekly ( approx 70 hours monthly) to assist in errands, making sure pt eats and takes medications . Pt has complicated MH and social needs. MH Clinician AUDRA Thompson (both through [facility] [place]). Job Barrow# does in home therapy. Pt operates cognitively at approx a 12 or 13 yo level. He has been diagnosed with schizotypal personality disorder. M2 PT-IP Current Condition Start: 12/06/18 14:47 Freq: NEEDED Status: Active Protocol: Document 12/06/18 14:00 HH (Rec: 12/06/18 15:09 [email or web address]) Physical Therapy Current Condition Current Condition Evaluation Date 12/06/18 Treatment Diagnosis SOB, diarrhea, generalized muscle weakness Onset Date 5 days ago Weight Bearing Status Weight Bearing Status Weight Bear as Tolerated M3 PT-IP Subjective Start: 12/06/18 14:47 Freq: NEEDED Status: Active Protocol: Document 12/06/18 14:00 HH (Rec: 12/06/18 15:09 [email or web address]) Subjective Physical Therapy Visit Type Type Initial Evaluation Visit Start Time 14:00 Visit Stop Time 14:20 Total Visit Minutes 20 Notes Pt is on 1L O2 NC. Per RN, attempt amb without O2 therapy . Number of QUALITY ASSURANCE MONITOR FINAL Visits 0 Physical Therapy Visit Comments Patient Comments I always wanted to get hynoptized so i might be able to get to my normal state of mind. Patient Goals Pt states he does not want to rely on other people's help and wish to get more independent. Therapy Pain Assessment Pain Present Pain Present Denied Pain M4 PT-IP Mobility and Gait Start: 12/06/18 14:47 Freq: NEEDED Status: Active Protocol: Document 12/06/18 14:00 HH (Rec: 12/06/18 15:09 [email or web address]) PT-Transfer Assessment Sit to and From Stand Sit to and from Stand Contact Guard Assistance Equipment Transfer Assistive Device Gait Belt Front Wheeled Walker Orthotic/Prosthetic Devices or Brace: No Transfers Transfer Destination Bed Chair Transfer Technique Stand Step Pivot Transfer Ability Level of Assist Contact Guard Assistance 1 Person Assistance Use of Upper Extremities Comments Mobility Comments BP before session : 144/100 BP post session : 120/78 Pt was slightly impulsive to stand up without AD. However, pt was considerably steady on his feet and able to stand infront of counter to brush hair without support SBA. He needs cues to use his FWW. Gait Assessment Gait Gait Assistance Required: Standby Assistance Contact Guard Assist Distance (Feet) 150 Able to Maintain Weight Bearing Status Yes During Gait Assistive Devices Assistive Device Gait Belt Front Wheeled Walker Orthotic/Prosthetic Devices or Brace: No Gait Deviations General Gait Pattern Decreased Stride Length Decreased Feet Clearance Factors Limiting Gait Function Factors Limiting Gait Function Decreased Activity Tolerance Decreased Strength Poor Safety Awareness Comments Gait Comments Pt amb from bedside chair to hallway for a total of 150 feet and returned back to chair with FWW SBA/CGA. Pt appears to be SOB after 100 feet and he statesI always get out of breath. Pt's BP stays in 120/78 after gait training 99% SpO2 without NC. Pt did not show signs of LOB and acute distress. PT-Balance Assessment Sitting Balance and Reactions Static Sitting Balance Ability Normal Dynamic Sitting Balance Ability Normal Standing Balance and Reactions Static Standing Balance Ability Good Dynamic Standing Balance Ability Good M5 PT-IP Objective Assessments Start: 12/06/18 14:47 Freq: NEEDED Status: Active Protocol: Document 12/06/18 14:00 (Rec: 12/06/18 15:09 [email or web address]) Orientation Orientation/Cognition Orientation Name Age Birthday Month Date Day of Week Place Language Function Ability No Deficits Noted Safety Awareness Decreased Safety Awareness Memory Description Short Term Impaired Final Inspector And Tester Impaired Gross Range of Motion Upper Extremity ROM Assessment Within Functional Limits Lower Extremity ROM Assessment Within Functional Limits Strength Upper Extremity Strength Assessment Within Functional Limits Lower Extremity Strength Assessment Within Functional Limits Coordination Assessment Gross Coordination Gross Coordination WNL Sensation Assessment Sensation Gross Sensation WNL Light Touch Intact Proprioception (Position) Intact Muscle Tone Muscle Tone WNL Yes M6 PT-IP Treatment Start: 12/06/18 14:47 Freq: NEEDED Status: Active Protocol: Document 12/06/18 14:00 (Rec: 12/06/18 15:09 [email or web address]) Physical Therapy Treatment Education Education Provided Safety M7 PT-IP Assessment and Plan Start: 12/06/18 14:47 Freq: NEEDED Status: Active Protocol: Document 12/06/18 14:00 (Rec: 12/06/18 15:09 [email or web address]) PT Summary Assessment and Plan Potential Rehabilitation Potential Good Status of Condition at Evaluation Stable Summary Impairments Strength Cognition Bed Mobility Transfers Gait Activity Tolerance Assessment Summary Pt is a pleasant 78 yo male admitted to due to increased weakness and SOB. Upon assessment, pt's BP stays in 120-140s/70-100s with SpO2 95s without NC. Pt was able to amb 150 feet but c/o SOB and fatigue after and requested to rest. Pt demonstrated quite steady gait and balance, but he was slightly impulsive from time to time and needed cues to use his FWW consistently. Pt lives justo with a poor living condition, along with complicated MH and social needs. Spoke to pt about SNF option for rehab and assistance needed. Pt stated he is opened for that since he does not like to ask for too much help from Job and Kimmy . Pt will be a good candidate to d/c to SNF due to his medical and social needs, along with therapy to improve his mobility. Goals Bed Mobility Goal Standby Assistance Transfer Goal Standby Assistance Cane Front Wheeled Walker Gait Goal Standby Assistance Cane Front Wheel Walker Gait Distance 300 Other Goals 3 steps with B railings Days to Meet Goals 5 Frequency of Treatment Frequency Of Treatment Once a Day Treatment Plan Physical Therapy Treatment Plan Bed Mobility Training Transfer Training Gait Training Therapeutic Exercise Balance Retraining Discharge Planning Other Recommendations and Next Treatment monitor VSS Focus transfer/ gait training as aylin Recommendations To Nursing Amount of Assist Needed 1 Person Assist Discharge Recommendations PT Discharge Recommendations SNF Rehab
--- NOTE | 2018-12-06 15:46 | ST.IP.CME ---
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 Higgins Reason for Referral Cognitive assessment for discharge planning Evaluation Assessment Type Cognitive screen Past Medical History Patient History Patient was brought to the ER for shortness of breath. Hearing Hearing Level Normal Educational Status Education Level 11th grade Occupational Status Occupation Status Retired Previous Therapy Previous Speech-Language Therapy No Oral Motor Examination Oral Motor Exam Completed No Subjective Subjective Patient was seen sitting up in bed talking on the phone. He hung up and began talking about his dislike for the food . After I introduced myself and stated my purpose, he agreed to participate in a cognitive screen. - Informal Assessment Receptive Language Normal Yes Expressive Language Normal Yes Articulation Normal Yes Cognition Normal No - Cognition Orientation Skill Level Mildly Impaired Attention Skill Level Moderately Impaired Problem Solving/Reasoning/Judgment Skill Level Moderately Impaired Divergent Naming Skill Level Moderately Impaired Auditory Math Skill Level Moderately Impaired Clock Drawing Skill Level Moderately Impaired - Memory Short Term Memory Skill Level Mildly Impaired - Findings Cognitive/Memory Impressions Patient scored 15/30 on the SLUMS which falls in range of Dementia (score of 1-19 for less than high school education).He was oriented to self, year, day, place and situation. He did not know his age or the date. He recalled 5 out of 5 objects following a 2 minute delay. He was not able to complete functional addition and subtraction math problem. He had significant difficulty with clock drawing only putting in numbers 10 and 11 and not drawing hands following multiple repetitions of instructions. He answered 2 out of 4 questions about a story read aloud. Patient has insight into his deficits stating he noticed a change in his memory/thinking after drinking a cocktail on . He stated My recall has been horrible. Recommendations Recommendations Patient presents with a moderate neurocognitive impairment at this time and is not safe to live alone due to deficits in memory, attention and problem solving. Baseline level is unknown and ongoing assessment is recommended as cognition may change from day to day given patient's report. Treatment Goals Short Term Goals The patient will demonstrate functional problem solving and safety awareness with 80% accuracy in order to increase safety and decrease assistance from caregivers.
[2018-12-06] MEDS: RIVAROXABAN 10 MG TABLET 20 MG PO (17:04)
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
--- NOTE | 2018-12-06 18:42 | PC.NURSE ---
Pt oriented to self/place. Denies pain. Cooperative/sitting in chair. LS decreased/tight, RA 94%. Continuous pulse ox on. Chair alarm on.
[2018-12-06] MEDS: ATORVASTATIN 20 MG TABLET PO (20:16)
[2018-12-06] MEDS: QUETIAPINE 25 MG TABLET PO (20:16)
[2018-12-06] MEDS: CHOLECALCIFEROL (VITAMIN D3) 1,000 UNIT TABLET 2000 UNIT PO (20:16)
--- NOTE | 2018-12-06 21:10 | PM.PN.1 ---
Subjective Date Patient Seen: 12/06/18 Interval history: Anam Davidson is a 78-year-old male with a past medical history significant for hypertension, hyperlipidemia, diabetes mellitus type 2, HFrEF, chronic atrial fibrillation anticoagulated on Xarelto, CKD, chronic left ankle pain (2/2 fall / ankle injury, 1975), psychiatric illness (depression, schizotypical personality disorder), prior 30 pack year history of tobacco dependence (quit 1979), and current cannabis use who presented for worsening shortness of breath. The patient is resting in bedside chair comfortably. He has no complaints other than a buzzing in his head. He denies history of vertigo or the room spinning. He denies lightheadedness or dizziness. He exhibits an odd breathing pattern which is mildly improved today. He headache, sore throat, cough, chest pain, abdominal pain, nausea, vomiting, fever, chills, dysuria, diarrhea or constipation. He has very tangential thinking and seems to be having active schizophrenic hallucinations and is talking about visitors that said on his shoulders and take him to caves. He is voiding and eliminate without difficulty. He is up ambulating with assistance. Exam Vital Signs (past 8 hours): - 12/06/18 15:29 12/06/18 17:00 12/06/18 19:05 Temperature 98.4 F 97.8 F Pulse Rate 86 91 H Respiratory Rate 20 20 Blood Pressure 131/76 134/72 Pulse Oximetry 95 94 97 12/06/18 20:40 Temperature Pulse Rate Respiratory Rate Blood Pressure Pulse Oximetry 95 Oxygen Delivery Method Room Air Oxygen Flow Rate 1 Narrative Exam Narrative: General: Elderly gentleman, dishelved appearing, in no acute distress, well-developed, well-nourished, tangential thinking. HEENT: Normocephalic, atraumatic. External ears without defect. Pupils equal, round, and reactive to light. Anicteric sclerae, moist conjunctivae, and no lid lag. Poor dentition. Neck: Supple with full range of motion. JVD resolved. No lymphadenopathy or thyromegaly. Cardiovascular: Heart sounds distant but appears irregularly irregular without murmurs, rubs, or gallops appreciated. Pulmonary: Clear to auscultation bilaterally with fine bibasilar crackles. No wheezes, or rhonchi. Normal respiratory effort with no use of accessory muscles. Abdomen: Soft, bowel sounds present, nontender, nondistended. No hepatosplenomegaly or masses appreciated. Extremities: No clubbing or cyanosis. Mild by pedal edema. Pretibial edema completely resolved. Skin: Normal temperature, turgor, and texture; no rash, ulcers, or subcutaneous nodules appreciated. Neurological: Cranial nerves grossly intact. Psychiatric: Tangential thinking. Active hallucinations. Objective Labs Result Diagrams: 12/05/18 08:44 12/06/18 05:45 Labs: Laboratory Results - last 24 hr 12/05/18 12/06/18 20:56 05:45 Sodium 139 136 L Potassium 3.9 3.6 Chloride 102 100 Carbon Dioxide 27 25 BUN 16 16 Creatinine 1.10 1.00 Estimated GFR > 60.0 > 60.0 BUN/Creatinine Ratio 14.5 16.0 Glucose 124 H 124 H Calcium 8.5 8.2 L Magnesium 2.0 2.0 Assessment & Plan Assessment & Plan narrative: Anam Davidson is a 78-year-old male with a past medical history significant for hypertension, hyperlipidemia, diabetes mellitus type 2, HFrEF, chronic atrial fibrillation anticoagulated on Xarelto, CKD, chronic left ankle pain (2/2 fall / ankle injury, 1975), psychiatric illness (depression, schizotypical personality disorder), prior 30 pack year history of tobacco dependence (quit 1979), and current cannabis use who presented for worsening shortness of breath. 1. Acute on chronic systolic heart failure, present on admission. Active. -LVEF is not known, last reported echo in 2015. Lasix was decreased on 09/27/2018 from 40 mg to 20 mg QD. -CXR interpreted by me demonstrates significant pulmonary edema with Jody B lines and cephalization. Also noted per Radiology, RLL pleural parenchymal density, which is increased from prior, could indicate pneumonitis. Cardiomegaly present. -Ordered echocardiogram, pending. -Continue to monitor on telemetry. -Received Bumex 0.5 mg q.8 hours x3 doses. Ordered furosemide 40 mg daily. -Strict I/O montoring. Daily weight. -Continue home carvedilol, lisinopril, and spironolactone. -Monitor renal function and electrolytes with active diuresis, replete e-lyte deficiencies accordingly. 2. Chronic atrial fibrillation with RVR, present on admission. RVR resolved. -Patient had mild rapid ventricular response with HR 120 bpm;Received metoprolol 5 mg IV x1 with good response. 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 for rate control and Xarelto for anticoagulation. -Continue to monitor closely on telemetry. -Continue home carvedilol and Xarelto. 3. Possible acute pneumonitis, present on admission. Resolved. -No fever or leukocytosis. No signs of SIRS. -Procalcitonin respiratory viral PCR negative. -Will repeat chest x-ray tomorrow morning to assess pneumonitis (in lieu of abnormal breathing pattern). 4. Essential hypertension, chronic condition, uncontrolled -BP mildly elevated on admission which is likely reflective of hypervolemic state. Goal SBP 120-140 mmHg -Continue carvedilol 25 mg twice daily and lisinopril 10 mg daily. -Restart spironolactone 12.5 mg daily. 5. Diabetes mellitus type 2, insulin using, present on admission. Stable. -Hemoglobin A1C 6.8 in 2017. Repeat hemoglobin A1c, pending. -Held metformin. -AC/HS glucose checks, supplement low-dose correctional scale insulin. -Resumed levemir per outpatient note from PCP dated 08/2018. -Notify provider of hypoglycemia. 6. Dyslipidemia, present on admission. Stable. -Continue home atorvastatin 20 mg daily bedtime. Disposition: Likely discharge tomorrow home with home health versus jail facility for physical rehabilitation. Quality VTE Deep Vein Thrombosis/Pulmonary Embolism Present on Admission: No
[2018-12-07] VITALS (15 sets, daily range): BP systolic 129–143; BP diastolic 59–82; PULSE 71–88; RESP 16–22; TEMP 36.3–37.6; O2SAT 91–99
[2018-12-07] MEDS: ALBUTEROL/IPRATROPIUM 3 ML AMPUL INH ×3 (05:11→16:58)
[2018-12-07] MEDS: FUROSEMIDE 40 MG TABLET PO (06:20)
[2018-12-07 06:27] LABS: Add Manual Diff / Slide Review NO; Basophils Absolute Auto 100 /uL (0-100); Basophils Percent Auto 1.4 % (0-2); Eosinophils Absolute Auto 500 /uL (0-450); Eosinophils Percent Auto 6.9 % (2-4); Hematocrit 39.7 % (41-53); Hemoglobin 12.7 g/dL (13.5-17.5); Lymphocytes Absolute Auto 1600 /uL (1100-4500); Lymphocytes Percent Auto 23.3 % (25-40); Mean Corpuscular HGB Conc 31.9 % (30-36); Mean Corpuscular Hemoglobin 31.5 PG (26-34); Mean Corpuscular Volume 98.8 fL (80-100); Monocytes Absolute Auto 500 /uL (0-900); Neutrophils Absolute Auto 4200 /uL (1500-7000); Neutrophils Percent Auto 60.4 % (50-75); Platelet Count 224 X10^3/uL (150-400); Red Blood Cell Count 4.01 X10^6/uL (4.5-5.9); Red Cell Distribution Width 19.4 % (11.6-14.8); White Blood Cell Count 6.9 X10^3/uL (4.5-11.0)
[2018-12-07 06:33] LABS: Alanine Aminotransferase 35 IU/L (21-72); Albumin 3.5 g/dL (3.5-5.0); Albumin Globulin Ratio 1.3 (1.0-2.8); Alkaline Phosphatase 85 U/L (38-126); Aspartate Aminotransferase 26 IU/L (17-59); BUN Creatinine Ratio 16.4 (6-22); Bilirubin Total 2.2 mg/dL (0.2-1.3); Blood Urea Nitrogen 18 mg/dL (9-20); Calcium 8.6 mg/dL (8.4-10.2); Carbon Dioxide 27 mmol/L (22-32); Chloride 101 mmol/L (98-107); Cholesterol 94 mg/dL (140-199); Estimated Glomerular Filt Rate > 60.0 mL/min (>60); Globulin 2.8 g/dL (1.7-4.1); Glucose 133 mg/dL (80-110); HDL Cholesterol 28 mg/dL (40-60); HEMOLYSIS < 15 (0-50); LDL Cholesterol Calculated 49 mg/dL (<100); Potassium 3.9 mmol/L (3.4-5.1); Sodium 138 mmol/L (137-145); Total Protein 6.3 g/dL (6.3-8.2); Triglycerides 83 mg/dL (35-150)
[2018-12-07 06:44] LABS: Hemoglobin A1C% w Est Avg Glu 6.5 % (4.0-6.0)
--- NOTE | 2018-12-07 08:00 | DI.RAD.S_ITS ---
PROCEDURE: XR CHEST 1V INDICATIONS: Reevaluate Pneumonitis/pleural densities TECHNIQUE: One view of the chest was acquired. COMPARISON: [facility], CR, XR CHEST 2V, 12/04/2018, 17:13. [facility], CR, CHEST 2 VIEW, 05/18/2014, 13:26. [facility], CR, CHEST 1 VIEW, 05/12/2014, 22:16. [facility], CR, CHEST 2 VIEW, 04/27/2014, 20:55. FINDINGS: Surgical changes and devices: Radiopaque electronic device projecting over the right femoral head Lungs and pleura: Diffuse bilateral reticular pulmonary opacities are noted. There are bibasilar and perihilar pulmonary opacities as well. No pleural effusions or pneumothorax. Mediastinum: The cardiac and mediastinal contours remain widened but similar in appearance to comparison exam. This calcified plaque of the aorta. Bones and chest wall: Moderate multilevel degenerative changes of the spine. IMPRESSION: Findings most compatible with mild pulmonary edema with bibasilar and perihilar atelectasis, with pneumonia thought less likely. Dictated by: Rick Reyna M.D. on 12/07/2018 at 12:10 Approved by: Rick Reyna M.D. on 12/07/2018 at 12:11
[2018-12-07] MEDS: INSULIN ASPART 100 UNIT/ML INSULN PEN SUBCUT ×3 (09:09→17:18)
[2018-12-07] MEDS: LISINOPRIL 10 MG TABLET PO (09:09)
[2018-12-07] MEDS: CARVEDILOL 25 MG TABLET PO ×2 (09:09→21:09)
[2018-12-07] MEDS: SERTRALINE 50 MG TABLET PO (09:28)
[2018-12-07] MEDS: SODIUM CHLORIDE 0.9% FLUSH 10 ML IV ×2 (09:28→21:10)
[2018-12-07] MEDS: SPIRONOLACTONE 25 MG TABLET 12.5 MG PO (09:28)
[2018-12-07 10:21] LABS: Troponin I 0.029 ng/mL (0.01-0.034)
--- NOTE | 2018-12-07 10:45 | PT.IPTN ---
Current Diagnoses Heart failure, unspecified (12/04/18) Physical Therapy Treatment Note M2 PT-IP Current Condition Start: 12/06/18 14:47 Freq: NEEDED Status: Active Protocol: Document 12/06/18 14:00 [facility] (Rec: 12/06/18 15:09 [id number]) Physical Therapy Current Condition Current Condition Evaluation Date 12/06/18 Treatment Diagnosis SOB, diarrhea, generalized muscle weakness Onset Date 5 days ago Weight Bearing Status Weight Bearing Status Weight Bear as Tolerated M3 PT-IP Subjective Start: 12/06/18 14:47 Freq: NEEDED Status: Active Protocol: Document 12/07/18 10:45 [facility] (Rec: 12/07/18 11:08 [facility] [id number]) Subjective Physical Therapy Visit Type Type Treatment Note Visit Start Time 10:45 Visit Stop Time 11:00 Total Visit Minutes 15 Number of EMERGENCY DEPARTMENT RN Visits 0 Physical Therapy Visit Comments Patient Comments pt states he is a little tired , but agrees to walk Therapy Pain Assessment Pain Present Pain Present Denied Pain M4 PT-IP Mobility and Gait Start: 12/06/18 14:47 Freq: NEEDED Status: Active Protocol: Document 12/07/18 10:45 [facility] (Rec: 12/07/18 11:08 [facility] [id number]) PT-Bed Mobility Assessment Supine to Sit Supine to Sit Independent Sit to Supine Sit to Supine Independent Scooting Scooting to Edge of Bed Standby Assistance PT-Transfer Assessment Sit to and From Stand Sit to and from Stand Standby Assistance Equipment Transfer Assistive Device Gait Belt Straight Cane Front Wheeled Walker Transfers Transfer Destination Bed Transfer Technique Stand Step Pivot Transfer Ability Level of Assist Contact Guard Assistance Gait Assessment Gait Gait Assistance Required: Contact Guard Assist Distance (Feet) 50 Assistive Devices Assistive Device Gait Belt Straight Cane Front Wheeled Walker Gait Deviations General Gait Pattern Decreased Stride Length Decreased Feet Clearance Wide Based Gait Factors Limiting Gait Function Factors Limiting Gait Function Decreased Activity Tolerance Decreased Strength Poor Safety Awareness Comments Gait Comments Pt ambulated 50 ft with SBA and FWW, then used SPC in LUE to pt's preferred height and required close CGA with SPC with increased lateral sway and mild unsteadiness but no LOB. O2 saturation decreased to 85% on 1 L O2, increased to 2-L O2 and remained in 88% or greater. Stair Climbing Assessment Evaluation Level of Assist On Stairs Minimal Assistance 1 Person Assistance Devices Stair Climbing Assistive Devices Left Railing Technique/Endurance Stair Climbing Direction Ascend and Descend Stair Climbing Technique Step to Step Number of Steps Climbed 3 Query Text: Stair Climbing Set # Repetitions (reps) 1 Comments Stair Climbing Comments 8 step stool with HH assist on the L up/down 3 steps, Min A for balance. 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 Impaired Gross Range of Motion Upper Extremity ROM Assessment Within Functional Limits Lower Extremity ROM Assessment Within Functional Limits Strength Upper Extremity Strength Assessment Within Functional Limits Lower Extremity Strength Assessment Within Functional Limits Coordination Assessment Gross Coordination Gross Coordination WNL Sensation Assessment Sensation Gross Sensation WNL Light Touch Intact Proprioception (Position) Intact Muscle Tone Muscle Tone WNL Yes M6 PT-IP Treatment Start: 12/06/18 14:47 Freq: NEEDED Status: Active Protocol: Document 12/07/18 10:45 [facility] (Rec: 12/07/18 11:08 [facility] [id number]) Physical Therapy Treatment Education Education Provided Safety M7 PT-IP Assessment and Plan Start: 12/06/18 14:47 Freq: NEEDED Status: Active Protocol: Document 12/07/18 10:45 [facility] (Rec: 12/07/18 11:08 [facility] [id number]) PT Summary Assessment and Plan Summary Assessment Summary Pt able to ambulate 50 ft with SPC but did have increased lateral sway and unsteadiness using SPC compared to FWW. O2 saturation decreased to 85% on 1-L O2 during walking, increased delivery to 2-L O2 and remained 88% or higher the rest of treatment. Pt unable to manage O2 and SPC independently, requires assistance with cord and tank management during this session . He was able to perform step up/down on 8 step but does require manual assistance to safely manage this. Pt is at risk for falls, and is a good candidate for SNF rehabilitation to progress his activity tolerance, balance, gait, and safety with progression toward functional independence. Goals Bed Mobility Goal Standby Assistance Transfer Goal Standby Assistance Cane Front Wheeled Walker Gait Goal Standby Assistance Cane Front Wheel Walker Gait Distance 300 Other Goals 3 steps with B railings Days to Meet Goals 5 Frequency of Treatment Frequency Of Treatment Once a Day Treatment Plan Other Recommendations and Next Treatment cont. to monitor MN/O2, gait Focus with SPC, stair training Recommendations To Nursing Amount of Assist Needed 1 Person Assist Discharge Recommendations PT Discharge Recommendations SNF Rehab
--- NOTE | 2018-12-07 10:52 | OT.IP.TRT ---
Current Diagnoses Heart failure, unspecified (12/04/18) Occupational Therapy Treatment Note M2 OT-IP Current Condition Start: 12/06/18 16:53 Freq: Status: Active Protocol: Document 12/06/18 16:54 [facility] (Rec: 12/06/18 17:29 [facility] [id number]) Occupational Therapy Current Condition Current Condition Evaluation Date 12/06/18 Treatment Diagnosis Acute on chronic systolic heart failure Diagnosis Onset Date 12/06/18 M3 OT- IP Subjective and Pain Start: 12/06/18 16:53 Freq: Status: Active Protocol: Document 12/07/18 10:36 [facility] (Rec: 12/07/18 10:51 [facility] [id number]) OT- Subjective Occupational Therapy Visit Type Type Treatment Note Visit Start Time 09:25 Visit Stop Time 10:20 Total Visit Minutes 55 Occupational Therapy Visit Comments Patient Comments Pt cooperative and but not wanting to shower at this time . OT Pain Assessment Pain When Pain Assessed At Rest Pain Present Pain Present Denied Pain M4 OT- IP ADL's Start: 12/06/18 16:53 Freq: Status: Active Protocol: Document 12/07/18 10:36 [facility] (Rec: 12/07/18 10:51 [facility] [id number]) OT ADL-Toileting General Evaluation Toileting Ability Independent Areas Needing Assistance Manage Clothing Perform Perineal Hygiene Devices Toileting Assistive Devices Urinal Comments OT Toileting Comments Pt independent with urinal. M5 OT- IP IADL's Start: 12/06/18 16:53 Freq: Status: Active Protocol: Document 12/06/18 16:54 [facility] (Rec: 12/06/18 17:29 [facility] [id number]) OT-Instrumental Activities of Daily Living Medication Management Medication Management Comments Pt has [employer] that assists him with errands, meals, and take medications. Driving Driving Comments Pt states has not driven in 2 weeks. M6 OT- IP Functional Cognition Start: 12/06/18 16:53 Freq: Status: Active Protocol: Document 12/07/18 10:36 [facility] (Rec: 12/07/18 10:51 [facility] [id number]) Cognitive Factors Limiting Selfcare Function Cognitive Ability Level of Alertness Alert Patient Orientation Name Place Situation Attention Span Ability Capable of Focused Attention Capable of Sustained Attention Ability to Follow Commands Able to Follow One Step Commands Memory Description Short Term Impaired Working Impaired Safety Awareness Underestimates Need for Assistance Problem Solving Ability Unable to Identify Errors Needs Assist to Identify Solutions Executive Function Ability Unable to Filter Distractions Unable to Make Plans Unable to Organize Plans Unable to Remember Details Cognitive Comments Cognitive Assessment Comments Today pt able to answer 70% accuracy today with immproved problem solving for safety needs. Pt tends to default to answer of calling the police if he does not know the answer , for example, how to get a ride home from the hospital? Pt still having trouble with sequencing when asked him to describe his morning as what he would do after waking up. Pt states,, I would check my ahh not sure first ( had to cue pt by choices blood pressure, blood sugar), oh yeah blood sugar. When asked if the numbers were high, pt states I would drink 4 cups of water versus 3 cups of water and not able to identify if needing to take medications. Pt continues to have poor insight to needs medically. Re-tested [place] making Part B and pt able to complete with step by step instructions and MAX cues and time of 15 minutes and 37 seconds. When asked pt to write out his time, pt only able to write the number 16. Pt only able to draw the numbers 12,6,7 of a clock and states tells the time by looking at the sun or from digital clock. Pt feels that he is thinking better but still not 100%. M7 OT- IP Mobility and Balance Start: 12/06/18 16:53 Freq: Status: Active Protocol: Document 12/07/18 10:36 [facility] (Rec: 12/07/18 10:51 [facility] [id number]) OT-Transfer Assessment Sit to and From Stand Sit to and from Stand Standby Assistance Comments Mobility Comments SBA cues to watch out of tray table when getting up, pt did realize that O2 tubing in his way and able to detangle himself before getting back to bed. OT- Balance Assessment Sitting Balance and Reactions Static Sitting Balance Ability Normal Dynamic Sitting Balance Ability Normal Standing Balance and Reactions Static Standing Balance Ability Good M8 OT- IP Objective Assessments Start: 12/06/18 16:53 Freq: Status: Active Protocol: Document 12/06/18 16:54 [facility] (Rec: 12/06/18 17:29 [facility] [id number]) OT Gross Range of Motion Upper Extremity Range of Motion Assessment Left Impaired ROM Impairments Dupuytren's contracture on left 4th and 5th digit. OT Strength Comments Strength Comments BUE 4/5 throughout OT- Coordination Assessment Comments Coordination Comments Intact finger to thumg for right hand and left hand 1st, 2nd, and 3rd digits. M9 OT- IP Assessment and Plan Start: 12/06/18 16:53 Freq: Status: Active Protocol: Document 12/07/18 10:36 [facility] (Rec: 12/07/18 10:51 [facility] [email or web address]) OT Summary Assessment and Plan Potential Rehabilitation Potential Good Analytic Complexity at Evaluation Low Summary OT Impairments Strength Functional Cognition Functional Mobility Dressing Bathing Progress Towards Goals Slow Progress due to Activity Tolerance Slow Progress due to Cognition Assessment Summary Pt doing better with functional cognition but still needing assist to sequence through tasks and would benefit from 24/7 assist at home and home health versus skilled rehab. Pt especially needing assistance for medication IADL's, and safety awareness. Goals Self-Feeding Goal Independent Grooming Goal Independent Dressing Goal Independent Toileting Goal Standby Assistance Bathing Goal Standby Assistance Toilet Transfer Goal Independent Shower Transfer Goal Standby Assistance Patient/Caregiver Education Goal Caregiver Independent Assisting Patient Days to Meet Goals 3 Frequency of Treatment Frequency Of Treatment Once a Day Treatment Plan OT Treatment Plan ADL Training Functional Cognition Training Functional Mobility Patient/Family Education Discharge Planning Other Treatment Recommendations and Next Shower Treatment Focus Discharge Recommendations OT Discharge Recommendations Home with 24/7 Assist Home Health SNF Rehab
[2018-12-07] MEDS: FUROSEMIDE 20 MG/2 ML VIAL IV (12:20)
--- NOTE | 2018-12-07 15:24 | CM.DPNOTE ---
Dr Higgins anticipates pt will likely be here until Sunday. This SPINNING MACHINE TENDER unable to meet w/pt today.PT/OT recommend SNF. not sure if pt will be agreeable and/or he will be a good SNF candidate? HH vs SNF. Further assessment needed w/ pt to discuss DC options. SPINNING MACHINE TENDER team can likely contact [employer]EW[facility] Restrepo Sunday to alert her of pt's DC if he goes home Sunday. Hopefully lori Oneal will be available to assist pt if he does return home. Following closely. No APS report done at this time. This may be appropriate before DC (?) AUDRA Moise
[2018-12-07] MEDS: RIVAROXABAN 10 MG TABLET 20 MG PO (17:18)
--- NOTE | 2018-12-07 18:33 | P.PN_ITS ---
Subjective Date Patient Seen: 12/07/18 Interval history: Anam Davidson is a 78-year-old male with a past medical history significant for hypertension, hyperlipidemia, diabetes mellitus type 2, HFrEF, chronic a trial fibrillation anticoagulated on Xarelto, CKD, chronic left ankle pain (2/2 fall / ankle injury, 1975), psychiatric illness (depression, schizotypical personality disorder), prior 30 pack year history of tobacco dependence (quit 1979), and current cannabis use who presented for worsening shortness of breath. Overnight: The patient reportedly became short of breath and was placed on 2 L supplemental oxygen. However, after review of the chart patients oxygen saturations were 9495 at time of shortness of breath so likely subjective. The patient is resting in bedside chair comfortably. He has no complaints. He believes his breathing has improved. He reports the buzzing in his head has r esolved today. He denies history of vertigo or the room spinning. He denies lightheadedness or dizziness. He exhibits an odd breathing pattern which is improved today. He denies headache, sore throat, cough, chest pain, abdominal pain, nausea, vomiting, fever, chills, dysuria, diarrhea or constipation. He has very tangential thinking and seems to be having active schizophrenic hallucinations not as prevalent today. He is voiding and eliminating without difficulty. He is up ambulating with assistance. Exam Vital Signs (past 8 hours): - 12/07/18 11:10 12/07/18 11:47 12/07/18 12:00 Temperature Pulse Rate 77 77 Respiratory Rate 18 18 Blood Pressure 129/59 L Pulse Oximetry 96 95 99 12/07/18 15:30 12/07/18 16:59 Temperature 98.3 F Pulse Rate 83 71 Respiratory Rate 20 18 Blood Pressure 142/78 H Pulse Oximetry 91 95 Fraction of Inspired Oxygen 28 Oxygen Delivery Method Nasal Cannula Oxygen Flow Rate 2 Narrative Exam Narrative: General: Elderly gentleman, dishelved appearing, in no acute distress, well- developed, well-nourished, tangential thinking. HEENT: Normocephalic, atraumatic. External ears without defect. Pupils equal, round, and reactive to light. Anicteric sclerae, moist conjunctivae, and no lid lag. Poor dentition. Neck: Supple with full range of motion. JVD resolved. No lymphadenopathy or thyromegaly. Cardiovascular: Heart sounds distant but appears irregularly irregular without murmurs, rubs, or gallops appreciated. Pulmonary: Clear to auscultation bilaterally with fine bibasilar crackles. No wheezes, or rhonchi. Normal respiratory effort with no use of accessory muscles. Abdomen: Soft, bowel sounds present, nontender, nondistended. No hepatosplenom egaly or masses appreciated. Extremities: No clubbing or cyanosis. Edema completely resolved. Skin: Normal temperature, turgor, and texture; no rash, ulcers, or subcutaneous nodules appreciated. Neurological: Cranial nerves grossly intact. Psychiatric: Tangential thinking. Active hallucinations. Objective Labs Result Diagrams: 12/07/18 05:58 12/07/18 05:58 Labs: Laboratory Results - last 24 hr 12/07/18 12/07/18 12/07/18 05:58 05:58 05:58 WBC 6.9 RBC 4.01 L Hgb 12.7 L Hct 39.7 L MCV 98.8 MCH 31.5 MCHC 31.9 RDW 19.4 H Plt Count 224 Neut % (Auto) 60.4 Lymph % (Auto) 23.3 L [place] % (Auto) 8.0 Eos % (Auto) 6.9 H Baso % (Auto) 1.4 Neut # (Auto) 4200 Lymph # (Auto) 1600 [place] # (Auto) 500 Eos # (Auto) 500 H Baso # (Auto) 100 Sodium 138 Potassium 3.9 Chloride 101 Carbon Dioxide 27 BUN 18 Creatinine 1.10 Estimated GFR > 60.0 BUN/Creatinine Ratio 16.4 Glucose 133 H Hemoglobin A1c 6.5 H Calcium 8.6 Magnesium 2.0 Total Bilirubin 2.2 H AST 26 ALT 35 Alkaline Phosphatase 85 Troponin I Total Protein 6.3 Albumin 3.5 Globulin 2.8 Albumin/Globulin Ratio 1.3 Triglycerides 83 Cholesterol 94 L LDL Cholesterol, Calc 49 HDL Cholesterol 28 L 12/07/18 07:15 WBC RBC Hgb Hct MCV MCH MCHC RDW Plt Count Neut % (Auto) Lymph % (Auto) [place] % (Auto) Eos % (Auto) Baso % (Auto) Neut # (Auto) Lymph # (Auto) [place] # (Auto) Eos # (Auto) Baso # (Auto) Sodium Potassium Chloride Carbon Dioxide BUN Creatinine Estimated GFR BUN/Creatinine Ratio Glucose Hemoglobin A1c Calcium Magnesium Total Bilirubin AST ALT Alkaline Phosphatase Troponin I 0.029 Total Protein Albumin Globulin Albumin/Globulin Ratio Triglycerides Cholesterol LDL Cholesterol, Calc HDL Cholesterol Assessment & Plan Assessment & Plan narrative: Anam Davidson is a 78-year-old male with a past medical history significant for hypertension, hyperlipidemia, diabetes mellitus type 2, HFrEF, chronic at rial fibrillation anticoagulated on Xarelto, CKD, chronic left ankle pain (2/2 fall / ankle injury, 1975), psychiatric illness (depression, schizotypical personality disorder), prior 30 pack year history of tobacco dependence (quit 1979), and current cannabis use who presented for worsening shortness of breath. 1. Acute on chronic systolic heart failure, present on admission. Active. -LVEF is not known, last reported echo in 2015. Lasix was decreased on 09/27/2018 from 40 mg to 20 mg QD. -CXR interpreted by me demonstrates significant pulmonary edema with Jody B lines and cephalization. Also noted per Radiology, RLL pleural parenchymal density, which is increased from prior, could indicate pneumonitis. Cardiomegaly present. -Echocardiogram -Continue to monitor on telemetry. -Received Bumex 0.5 mg q.8 hours x3 doses. Continue furosemide 40 mg PO daily. Chest x-ray still demonstrate mild pulmonary edema. -Strict I/O montoring. Daily weight. Net negative 8L. -Continue home carvedilol, lisinopril, and spironolactone. -Monitor renal function and electrolytes with active diuresis, replete electrolyte deficiencies accordingly. 2. Chronic atrial fibrillation with RVR, present on admission. RVR resolved. -Patient had mild rapid ventricular response with HR 120 bpm; Received met oprolol 5 mg IV x1 with good response. -Continue home carvedilol 25 mg b.i.d. for rate control and Xarelto for anticoagulation. -Continue to monitor closely on telemetry. 3. Generalized weakness secondary to physical deconditioning, present on admission. Active. -Continue PT and OT. Recommending SNF. 4. Possible acute pneumonitis, present on admission. Resolved. -No fever or leukocytosis. No signs of SIRS. -Procalcitonin respiratory viral PCR negative. -Repeated chest x-ray in lieu of abnormal breathing pattern and demonstrated now and improving mild pulmonary edema. 4. Essential hypertension, chronic condition, uncontrolled -BP mildly elevated on admission which is likely reflective of hypervolemic state. Goal SBP 120-140 mmHg -Continue carvedilol 25 mg twice daily and lisinopril 10 mg daily. -Restarted spironolactone 12.5 mg daily. 5. Diabetes mellitus type 2, insulin using, present on admission. Stable. -Hemoglobin A1C 6.8 in 2017. Repeat hemoglobin A1c 6.5%. -Held metformin. -AC/HS glucose checks, supplement low-dose correctional scale insulin. -Resumed levemir per outpatient note from PCP dated 08/2018. -Notify provider of hypoglycemia. 6. Dyslipidemia, present on admission. Stable. -Continue home atorvastatin 20 mg daily bedtime. Disposition: Likely dischargein 1-2 days to snf facility for physical rehabilitation versus home with home health. Quality VTE Deep Vein Thrombosis/Pulmonary Embolism Present on Admission: No
[2018-12-07] MEDS: ATORVASTATIN 20 MG TABLET PO (21:09)
[2018-12-07] MEDS: QUETIAPINE 25 MG TABLET PO (21:10)
[2018-12-07] MEDS: CHOLECALCIFEROL (VITAMIN D3) 1,000 UNIT TABLET 2000 UNIT PO (21:10)
[2018-12-07] MEDS: GABAPENTIN 300 MG CAPSULE PO (21:10)
[2018-12-08] VITALS (17 sets, daily range): BP systolic 115–130; BP diastolic 58–76; PULSE 50–94; RESP 16–20; TEMP 36.2–36.4; O2SAT 88–100
--- NOTE | 2018-12-08 03:55 | PC.NURSE ---
Shift Note: Received pt from evening shift. Pt appeared to be soundly sleeping and d/t last nights restlessness and anxiety about sleeping, made nursing decision to allow pt to sleep til he awoke on his own. Pt woke up suddenly @ 0345 and exited bed, this RN was able to stabilize pt upright as he started to void spontaneously on the floor. Pt appeared to not respond to name or external stimulus until long-term through void and then acknowledged questions but was delayed. Staff were alerted to bed alarm that had been set for pt safety and assisted this RN with pt. Pt confused and oriented only to self and promptly fell back to sleep after cleaned up and returned to bed. Pt at risk for falls as this RN felt that pt would have gone down to the floor had he not been assisted immediately after exiting bed. Pt is in yellow gown, yellow socks, and bed alarm is back on for pt safety.
[2018-12-08] MEDS: ALBUTEROL/IPRATROPIUM 3 ML AMPUL INH ×2 (06:12→11:50)
[2018-12-08] MEDS: FUROSEMIDE 40 MG TABLET PO (10:01)
[2018-12-08] MEDS: CARVEDILOL 25 MG TABLET PO ×2 (10:01→20:30)
[2018-12-08] MEDS: LISINOPRIL 10 MG TABLET PO (10:01)
[2018-12-08] MEDS: SERTRALINE 50 MG TABLET PO (10:02)
[2018-12-08] MEDS: SODIUM CHLORIDE 0.9% FLUSH 10 ML IV ×2 (10:02→20:33)
[2018-12-08] MEDS: SPIRONOLACTONE 25 MG TABLET 12.5 MG PO (10:02)
[2018-12-08] MEDS: INSULIN ASPART 100 UNIT/ML INSULN PEN SUBCUT ×2 (11:57→21:57)
--- NOTE | 2018-12-08 16:20 | CM.DANOTE ---
DCP/continued: Received notification from that patient requiring SNF at time of d/c. Patient active with [facility] and assigned mental health clinician is AUDRA Arreola cell# [phone]. Met with patient explained CM/SW role. Initially, patient reports that he would like to return home. After discussion with nursing, and BILLING SUPERVISOR re: safety patient agreeable to short SNF stay. First SNF choice is [facility] . Patient resides in [place] and would like to be close. Placed call to Veronica at [facility] requesting that they access for admit. Patient at baseline for mental health diagnosis and has not needed any medication adjustments. P: [facility] reviewing for potential admit. May need second/third choice if they are unable to accept. AUDRA Tee
--- NOTE | 2018-12-08 17:08 | P.PN_ITS ---
Subjective Date Patient Seen: 12/08/18 Interval history: Anam Davidson is a 78-year-old male with a past medical history significant for hypertension, hyperlipidemia, diabetes mellitus type 2, HFrEF, chronic atr ial fibrillation anticoagulated on Xarelto, CKD, chronic left ankle pain (2/2 fall / ankle injury, 1975), psychiatric illness (depression, schizotypical personality disorder), prior 30 pack year history of tobacco dependence (quit 1979), and current cannabis use who presented for worsening shortness of breath. Overnight: Nursing staff reported that the patient almost fell during the middle of the night last night. The patient is resting in bed comfortably. He has no complaints. He overall has no complaints. He continues to tangential thinking and loose association. He continues to have schizophrenia associated hallucinations and reports he is working on a helmet for concussions and has called Alexis Tolentino to implement this idea. He continues to have an odd breathing pattern that is likely related to his mental health condition rather than shortness of breath. He denies headache, shortness of breath, chest pain, abdominal pain, nausea, vomiting, fever, chills, dysuria, or constipation. He has very tangential thinking and seems to be having active schizophrenic hallucinations not as prevalent today. He is voiding and eliminating without difficulty. He is up ambulating with assistance. Exam Vital Signs (past 8 hours): - 12/08/18 09:15 12/08/18 09:21 12/08/18 09:27 Temperature Pulse Rate Respiratory Rate Blood Pressure Pulse Oximetry 98 92 95 12/08/18 10:01 12/08/18 11:20 12/08/18 11:51 Temperature 97.2 F L Pulse Rate 50 L 78 Respiratory Rate 18 18 Blood Pressure 130/76 Pulse Oximetry 95 92 12/08/18 13:00 12/08/18 15:50 Temperature 97.6 F Pulse Rate 73 Respiratory Rate 20 Blood Pressure 129/68 Pulse Oximetry 92 88 L Fraction of Inspired Oxygen 21 Oxygen Delivery Method Room Air Oxygen Flow Rate 0 Narrative Exam Narrative: General: Elderly gentleman, dishelved appearing, in no acute distress, well- developed, well-nourished, tangential thinking. HEENT: Normocephalic, atraumatic. External ears without defect. Pupils equal, round, and reactive to light. Anicteric sclerae, moist conjunctivae, and no lid lag. Poor dentition. Neck: Supple with full range of motion. JVD resolved. No lymphadenopathy or thyromegaly. Cardiovascular: Heart sounds distant but appears irregularly irregular without murmurs, rubs, or gallops appreciated. Pulmonary: Clear to auscultation bilaterally with fine bibasilar crackles. No wheezes, or rhonchi. Normal respiratory effort with no use of accessory muscles. Abdomen: Soft, bowel sounds present, nontender, nondistended. No hepatosplenomegaly or masses appreciated. Extremities: No clubbing or cyanosis. Edema completely resolved. Skin: Normal temperature, turgor, and texture; no rash, ulcers, or subcutaneous nodules appreciated. Neurological: Cranial nerves grossly intact. Psychiatric: Tangential thinking. Active hallucinations. Objective Labs Result Diagrams: 12/07/18 05:58 12/07/18 05:58 Assessment & Plan Assessment & Plan narrative: Anam Davidson is a 78-year-old male with a past medical history significant for hypertension, hyperlipidemia, diabetes mellitus type 2, HFrEF, chronic atrial fibrillation anticoagulated on Xarelto, CKD, chronic left ankle pain (2/2 fall / ankle injury, 1975), psychiatric illness (depression, schizotypical personality disorder), prior 30 pack year history of tobacco dependence (quit 1979), and current cannabis use who presented for worsening shortness of breath. 1. Acute on chronic systolic heart failure, present on admission. Active. -LVEF is not known, last reported echo in 2015. Lasix was decreased on 09/27/2018 from 40 mg to 20 mg QD outpatient. -CXR interpreted by me demonstrates significant pulmonary edema with Jody B lines and cephalization. Also noted per Radiology, RLL pleural parenchymal density, which is increased from prior, could indicate pneumonitis. Cardiomegaly present. -Echocardiogram demonstrated slight worsening of left ventricular function with left ventricle markedly dilated, EF of 25-30%, basal inferior wall akinesis moderate to severe global hypokinesis of LV, severe biatrial enlargement, RVSP of 58 mm Hg, aortic root is moderately dilated. -Continue to monitor on telemetry. -Received Bumex 0.5 mg q.8 hours x3 doses. Continue furosemide 40 mg PO daily. -Strict I/O montoring. Daily weight. Net negative 8L. -Continue home carvedilol, lisinopril, and spironolactone. -Monitor renal function and electrolytes with active diuresis, replete electrolyte deficiencies accordingly. 2. Chronic atrial fibrillation with RVR, present on admission. RVR resolved. -Patient had mild rapid ventricular response with HR 120 bpm; Received metoprolol 5 mg IV x1 with good response. -Continue home carvedilol 25 mg twice daily for rate control and Xarelto for anticoagulation. -Continue to monitor closely on telemetry. 3. Generalized weakness secondary to physical deconditioning, present on admission. Active. -Continue PT and OT. Recommending SNF. 4. Possible acute pneumonitis, present on admission. Resolved. -No fever or leukocytosis. No signs of SIRS. -Procalcitonin and respiratory viral PCR negative. -Repeated chest x-ray in lieu of abnormal breathing pattern demonstrated resolution of increased right basilar pleural-parenchymal density. 4. Essential hypertension, chronic, present on admission. Stable. -BP mildly elevated on admission which is likely reflective of hypervolemic state. Goal SBP 120-140 mmHg -Continue carvedilol 25 mg twice daily, lisinopril 10 mg daily, and spironolactone 12.5 mg daily. 5. Diabetes mellitus type 2, insulin using, present on admission. Stable. -Hemoglobin A1C 6.8 in 2017. Repeat hemoglobin A1c 6.5%. -Held metformin. -AC/HS glucose checks, supplement low-dose correctional scale insulin. -Resumed levemir per outpatient note from PCP dated 08/2018. -Notify provider of hypoglycemia. 6. Dyslipidemia, present on admission. Stable. -Fasting lipid panel demonstrated total cholesterol 94, triglycerides 83, LDL 4 9, and HDL 28. -Continue home atorvastatin 20 mg daily bedtime. Disposition: Likely discharge in 1-2 days to nursing home facility for physical rehabilitation. Quality VTE Deep Vein Thrombosis/Pulmonary Embolism Present on Admission: No
--- NOTE | 2018-12-08 17:24 | PT.IPTN ---
Current Diagnoses Heart failure, unspecified (12/04/18) Physical Therapy Treatment Note M2 PT-IP Current Condition Start: 12/06/18 14:47 Freq: NEEDED Status: Active Protocol: Document 12/06/18 14:00 HH (Rec: 12/06/18 15:09 HH [id number]) Physical Therapy Current Condition Current Condition Evaluation Date 12/06/18 Treatment Diagnosis SOB, diarrhea, generalized muscle weakness Onset Date 5 days ago Weight Bearing Status Weight Bearing Status Weight Bear as Tolerated M3 PT-IP Subjective Start: 12/06/18 14:47 Freq: NEEDED Status: Active Protocol: Document 12/08/18 15:55 CLB (Rec: 12/08/18 17:24 CLB [id number]) Subjective Physical Therapy Visit Type Type Treatment Note Visit Start Time 16:00 Visit Stop Time 16:24 Total Visit Minutes 24 Number of MEDIA RELATIONS MANAGER Visits 1 Physical Therapy Visit Comments Patient Comments Pt willing to ambulate with therapy. Therapy Pain Assessment Pain Present Pain Present Denied Pain M4 PT-IP Mobility and Gait Start: 12/06/18 14:47 Freq: NEEDED Status: Active Protocol: Document 12/08/18 15:55 CLB (Rec: 12/08/18 17:24 CLB [id number]) PT-Bed Mobility Assessment Supine to Sit Supine to Sit Independent Sit to Supine Sit to Supine Independent Scooting Scooting to Edge of Bed Standby Assistance PT-Transfer Assessment Sit to and From Stand Sit to and from Stand Standby Assistance Equipment Transfer Assistive Device Gait Belt Straight Cane Front Wheeled Walker Transfers Transfer Destination Bed Transfer Technique Stand Step Pivot Transfer Ability Level of Assist Contact Guard Assistance Gait Assessment Gait Gait Assistance Required: Contact Guard Assist Distance (Feet) 150 Assistive Devices Assistive Device Gait Belt Straight Cane Front Wheeled Walker Gait Deviations General Gait Pattern Decreased Stride Length Decreased Feet Clearance Wide Based Gait Factors Limiting Gait Function Factors Limiting Gait Function Decreased Activity Tolerance Decreased Strength Poor Safety Awareness Comments Gait Comments Pt ambulated in carpio with CGA and FWW, then used SPC in LUE Close CGA and cues for reciprocal cane/step sequencing. Pt had one LOB needing assist of GB to correct. M5 PT-IP Objective Assessments Start: 12/06/18 14:47 Freq: NEEDED Status: Active Protocol: Document 12/06/18 14:00 HH (Rec: 12/06/18 15:09 HH [id number]) Orientation Orientation/Cognition Orientation Name Age Birthday Month Date Day of Week Place Language Function Ability No Deficits Noted Safety Awareness Decreased Safety Awareness Memory Description Short Term Impaired Bolt Sawyer Impaired Gross Range of Motion Upper Extremity ROM Assessment Within Functional Limits Lower Extremity ROM Assessment Within Functional Limits Strength Upper Extremity Strength Assessment Within Functional Limits Lower Extremity Strength Assessment Within Functional Limits Coordination Assessment Gross Coordination Gross Coordination WNL Sensation Assessment Sensation Gross Sensation WNL Light Touch Intact Proprioception (Position) Intact Muscle Tone Muscle Tone WNL Yes M6 PT-IP Treatment Start: 12/06/18 14:47 Freq: NEEDED Status: Active Protocol: Document 12/07/18 10:45 RCC (Rec: 12/07/18 11:08 RCC [id number]) Physical Therapy Treatment Education Education Provided Safety M7 PT-IP Assessment and Plan Start: 12/06/18 14:47 Freq: NEEDED Status: Active Protocol: Document 12/08/18 15:55 CLB (Rec: 12/08/18 17:24 CLB [id number]) PT Summary Assessment and Plan Summary Assessment Summary Pt requires CGA for FWW/SPC ambulation due to NBS and LOB with SPC. Pt wore shoes during tx for increased stability. Pt has poor safety awareness and gets easily distracted needing to be redirected several times. Pt O2 on RA remained WNL and pt denied SOB or dizziness. Pt is at risk for falls, and is a good candidate for SNF rehabilitation to progress his activity tolerance, balance, gait, and safety with progression toward functional independence. Goals Bed Mobility Goal Standby Assistance Transfer Goal Standby Assistance Cane Front Wheeled Walker Gait Goal Standby Assistance Cane Front Wheel Walker Gait Distance 300 Other Goals 3 steps with B railings Days to Meet Goals 5 Frequency of Treatment Frequency Of Treatment Once a Day Treatment Plan Other Recommendations and Next Treatment gait with SPC, stair training Focus Recommendations To Nursing Amount of Assist Needed 1 Person Assist Discharge Recommendations PT Discharge Recommendations SNF Rehab
[2018-12-08] MEDS: RIVAROXABAN 10 MG TABLET 20 MG PO (17:56)
--- NOTE | 2018-12-08 17:59 | PC.NURSE ---
A/O x3, pt SpO2 88% RA, placed on 2L nc for 98% SpO2 for for 2hrs, weaned down to 1L, pt maintaining 97-99% SpO2, LS diminished throughout, breathing much better than yesterday, using I.S. appropriately for 2300, some SOB with exertion, no SOB noted at rest. Sitting up in high fowlers watching [employer] on TV, eating dinner, which he reports tastes real good. Using urinal indep, for clear yellow urine. Had one BM day shift today. Bed alrm on for safety, pt impulsive at times.
[2018-12-08] MEDS: ATORVASTATIN 20 MG TABLET PO (20:30)
[2018-12-08] MEDS: GABAPENTIN 300 MG CAPSULE PO (20:32)
[2018-12-08] MEDS: CHOLECALCIFEROL (VITAMIN D3) 1,000 UNIT TABLET 2000 UNIT PO (20:32)
[2018-12-08] MEDS: QUETIAPINE 25 MG TABLET PO (20:33)
[2018-12-09] VITALS (15 sets, daily range): BP systolic 97–131; BP diastolic 50–73; PULSE 60–85; RESP 16–20; TEMP 35.9–36.6; O2SAT 92–100
[2018-12-09] MEDS: INSULIN ASPART 100 UNIT/ML INSULN PEN SUBCUT ×2 (03:07→11:32)
[2018-12-09 05:40] LABS: Add Manual Diff / Slide Review NO; Basophils Absolute Auto 100 /uL (0-100); Eosinophils Absolute Auto 500 /uL (0-450); Eosinophils Percent Auto 4.8 % (2-4); Hematocrit 37.3 % (41-53); Hemoglobin 12.1 g/dL (13.5-17.5); Lymphocytes Absolute Auto 1400 /uL (1100-4500); Lymphocytes Percent Auto 14.7 % (25-40); Mean Corpuscular HGB Conc 32.5 % (30-36); Mean Corpuscular Hemoglobin 31.8 PG (26-34); Mean Corpuscular Volume 97.6 fL (80-100); Monocytes Absolute Auto 800 /uL (0-900); Monocytes Percent Auto 8.6 % (3-14); Neutrophils Absolute Auto 6800 /uL (1500-7000); Neutrophils Percent Auto 70.9 % (50-75); Platelet Count 223 X10^3/uL (150-400); Red Blood Cell Count 3.82 X10^6/uL (4.5-5.9); Red Cell Distribution Width 18.9 % (11.6-14.8); White Blood Cell Count 9.6 X10^3/uL (4.5-11.0)
[2018-12-09 06:01] LABS: BUN Creatinine Ratio 19.1 (6-22); Blood Urea Nitrogen 21 mg/dL (9-20); Calcium 8.5 mg/dL (8.4-10.2); Carbon Dioxide 28 mmol/L (22-32); Chloride 103 mmol/L (98-107); Estimated Glomerular Filt Rate > 60.0 mL/min (>60); Glucose 156 mg/dL (80-110); HEMOLYSIS < 15 (0-50); Magnesium 2.3 mg/dL (1.6-2.3); Potassium 3.8 mmol/L (3.4-5.1); Sodium 139 mmol/L (137-145)
--- NOTE | 2018-12-09 06:18 | PC.NURSE ---
Farm Supervisor 2330: Assumed care of pt with safe hand off. Safety checks done. Pt currently sleeping. 0100: Pt ambulated to the bathroom with SUPERVISOR MACHINING. SBA assist with unsteady gate. 0300: Bed alarm going of. Pt standing at the side of the bed reaching for the garbage can to void. Urinal handed to pt. Pt unsteady on his feet. Guided onto bed. Pt able to finish voiding. Bed alarm placed back on. BG elevated. Insulin covering given.
[2018-12-09] MEDS: CARVEDILOL 25 MG TABLET PO ×2 (08:18→22:29)
[2018-12-09] MEDS: LISINOPRIL 10 MG TABLET PO (08:19)
[2018-12-09] MEDS: FUROSEMIDE 40 MG TABLET PO (08:19)
[2018-12-09] MEDS: SODIUM CHLORIDE 0.9% FLUSH 10 ML IV ×2 (08:19→22:30)
[2018-12-09] MEDS: SERTRALINE 50 MG TABLET PO (08:19)
[2018-12-09] MEDS: SPIRONOLACTONE 25 MG TABLET 12.5 MG PO (08:20)
--- NOTE | 2018-12-09 09:23 | PT.IPTN ---
Current Diagnoses Heart failure, unspecified (12/04/18) Physical Therapy Treatment Note M2 PT-IP Current Condition Start: 12/06/18 14:47 Freq: NEEDED Status: Active Protocol: Document 12/06/18 14:00 HH (Rec: 12/06/18 15:09 [id number]) Physical Therapy Current Condition Current Condition Evaluation Date 12/06/18 Treatment Diagnosis SOB, diarrhea, generalized muscle weakness Onset Date 5 days ago Weight Bearing Status Weight Bearing Status Weight Bear as Tolerated M3 PT-IP Subjective Start: 12/06/18 14:47 Freq: NEEDED Status: Active Protocol: Document 12/09/18 09:23 RS (Rec: 12/09/18 09:28 RS [id number]) Subjective Physical Therapy Visit Type Type Treatment Note Visit Start Time 08:40 Visit Stop Time 09:23 Total Visit Minutes 43 Number of CONTENT MANAGEMENT CONSULTANT Visits 0 Physical Therapy Visit Comments Patient Comments Pt really wanting a cup of coffee but agreeable to work with PT first. Patient Goals get healthy Therapy Pain Assessment Pain Present Pain Present Denied Pain M4 PT-IP Mobility and Gait Start: 12/06/18 14:47 Freq: NEEDED Status: Active Protocol: Document 12/09/18 09:23 RS (Rec: 12/09/18 09:28 RS [id number]) PT-Bed Mobility Assessment Supine to Sit Supine to Sit Independent Sit to Supine Sit to Supine Independent Scooting Scooting to Edge of Bed Independent Scooting Up and Down in Bed Independent PT-Transfer Assessment Sit to and From Stand Sit to and from Stand Standby Assistance Equipment Transfer Assistive Device Gait Belt Front Wheeled Walker Transfers Transfer Destination Bed Transfer Technique walked Transfer Ability Level of Assist Contact Guard Assistance Comments Mobility Comments Pt is completely ind with all aspects of bed mobility. Pt requires SBA for sit<>stand w/ FWW, also attempted mobilization with SPC and requires CGA for sit<>stand. Gait Assessment Gait Gait Assistance Required: Minimum Assistance Distance (Feet) 200 Assistive Devices Assistive Device Gait Belt Comments Gait Comments Pt is CGA w/ FWW, min A without any AD, and up to mod A with SPC. When using SPC pt needs nearly constant verbal cues and still cannot walk with ideal sequencing. The SPC becomes more of a trip hazard and pt needs up to mod A to prevent falls. This is also due, in part, to pt's ability to be easily distracted. Pt currently safer without any AD than with a SPC, but is the most safe with a FWW. M5 PT-IP Objective Assessments Start: 12/06/18 14:47 Freq: NEEDED Status: Active Protocol: Document 12/06/18 14:00 HH (Rec: 12/06/18 15:09 HH [id number]) Orientation Orientation/Cognition Orientation Name Age Birthday Month Date Day of Week Place Language Function Ability No Deficits Noted Safety Awareness Decreased Safety Awareness Memory Description Short Term Impaired Skilled Nursing Impaired Gross Range of Motion Upper Extremity ROM Assessment Within Functional Limits Lower Extremity ROM Assessment Within Functional Limits Strength Upper Extremity Strength Assessment Within Functional Limits Lower Extremity Strength Assessment Within Functional Limits Coordination Assessment Gross Coordination Gross Coordination WNL Sensation Assessment Sensation Gross Sensation WNL Light Touch Intact Proprioception (Position) Intact Muscle Tone Muscle Tone WNL Yes M6 PT-IP Treatment Start: 12/06/18 14:47 Freq: NEEDED Status: Active Protocol: Document 12/07/18 10:45 RCC (Rec: 12/07/18 11:08 RCC [id number]) Physical Therapy Treatment Education Education Provided Safety M7 PT-IP Assessment and Plan Start: 12/06/18 14:47 Freq: NEEDED Status: Active Protocol: Document 12/09/18 09:23 RS (Rec: 12/09/18 10:02 RS [id number]) PT Summary Assessment and Plan Summary Assessment Summary BP/HR WNL entire session. Pt on 1L supplemental O2 at beginning of session, transitioned to RA prior to mobilization. SpO2 prior to walking was 91% on RA. After walking SpO2 read as 98%, and pt denied SOB the entire session. Pt continues to demonstrate poor balance which puts him at a high risk for falls. Pt has been improving since initiation of therapy and is anticipated to continue to improve with ongoing therapy. Continue to recommend pt transition to SNF rehab once medically ready. Goals Days to Meet Goals 3 Frequency of Treatment Frequency Of Treatment Once a Day Treatment Plan Other Recommendations and Next Treatment dynamic balance, dual tasks, Focus consider no AD vs trialing SPC again Recommendations To Nursing Amount of Assist Needed 1 Person Assist Discharge Recommendations PT Discharge Recommendations SNF Rehab
--- NOTE | 2018-12-09 15:57 | PM.PN.1 ---
Subjective Date Patient Seen: 12/09/18 Interval history: The patient is a 78-year-old male admitted to the hospital with shortness of breath secondary to acute on chronic systolic heart failure. Patient also has chronic atrial fibrillation, hypertension, hyperlipidemia and type 2 diabetes. The patient reports he feels significantly improved today. He has no specific complaints. His breathing is at baseline. He is still unsteady on his feet. Patient does require assistance for ambulation. Exam Vital Signs (past 8 hours): - 12/09/18 08:07 12/09/18 11:30 12/09/18 12:08 Temperature 97.7 F Pulse Rate 67 Respiratory Rate 18 Blood Pressure 97/70 Pulse Oximetry 95 93 95 Fraction of Inspired Oxygen 21 Oxygen Delivery Method Nasal Cannula Oxygen Flow Rate 1 Narrative Exam Narrative: Pleasant gentleman resting comfortably lungs: Decreased breath sounds with occasional basilar crackles bilaterally cardiac exam: Irregularly irregular normal S1-S2 a 2/6 systolic ejection murmur abdomen: Soft nontender nondistended extremities: No edema Objective Labs Result Diagrams: 12/09/18 05:23 12/09/18 05:23 Labs: Laboratory Results - last 24 hr 12/09/18 12/09/18 05:23 05:23 WBC 9.6 RBC 3.82 L Hgb 12.1 L Hct 37.3 L MCV 97.6 MCH 31.8 MCHC 32.5 RDW 18.9 H Plt Count 223 Neut % (Auto) 70.9 Lymph % (Auto) 14.7 L [place] % (Auto) 8.6 Eos % (Auto) 4.8 H Baso % (Auto) 1.0 Neut # (Auto) 6800 Lymph # (Auto) 1400 [place] # (Auto) 800 Eos # (Auto) 500 H Baso # (Auto) 100 Sodium 139 Potassium 3.8 Chloride 103 Carbon Dioxide 28 BUN 21 H Creatinine 1.10 Estimated GFR > 60.0 BUN/Creatinine Ratio 19.1 Glucose 156 H Calcium 8.5 Magnesium 2.3 Assessment & Plan (1) Paroxysmal atrial fibrillation: Problem details: 1. paroxysmal atrial fibrillation, present on admission. patient heart rate is well controlled. Will continue Coreg, and rivaroxaban Current visit: Yes Status: Acute (2) Essential hypertension: Problem details: will continue lisinopril and Coreg. Current visit: Yes Status: Acute (3) Hyperlipidemia associated with type 2 diabetes mellitus: Problem details: will continue statin Current visit: Yes Status: Acute (4) Type 2 diabetes mellitus: Problem details: will continue current treatment Current visit: Yes Status: Acute (5) Acute exacerbation of CHF (congestive heart failure): Problem details: acute systolic heart failure, present on admission. Will continue current Bumex every 8 hr. Anticipate discharge to SNF tomorrow. Qualifiers: Heart failure type: unspecified Qualified Code(s): I50.9 - Heart failure, unspecified Current visit: Yes Status: Acute Quality VTE Deep Vein Thrombosis/Pulmonary Embolism Present on Admission: No
--- NOTE | 2018-12-09 15:59 | CM.DPC ---
DCP/continued: Reviewed chart. Spoke with MD/Dr. Murillo in rounds this AM. She reports that patient will need SNF. MD made aware that [facility] has turned him down. STEM THRESHING MACHINE OPERATOR attempting to locate SNF in [place]. Placed call to Shari at [facility] left vm. Received return phone call from Shari and she reports that they do have male bed and will review. Faxed clinical to [facility] for review. In the meantime, placed call to mental health clinician/Job Silva ph# [phone]. Awaiting return phone call. If [facility] [place] unable to accept may need assistance from Job/GANESH with placement options. P: [facility] reviewing for admit. Patient seen by both PT and OT today. Both continue to recommend SNF. If unable to locate accepting SNF may need to consider safe home plan with assistance of [facility] phone# [phone] [facility]ILD is Ifeoma Restrepo. Yuliet Melchor MSW
--- NOTE | 2018-12-09 16:30 | ST.IPTN ---
AIR BAG CURER Treatment Note AIR BAG CURER Treatment Note Start: 12/06/18 15:31 Freq: Status: Active Protocol: Document 12/09/18 16:08 TLC (Rec: 12/09/18 16:29 TLC [id number]) Speech Pathology Treatment Note Session Time Total Visit Minutes 30 Visit Information Visit Number 2 Setting Treatment Setting Acute Care Visit Type Note Type Treatment Note Next Note Type Next Note Type Treatment Note General Information General Information Patient being seen by speech therapy for cognition. He reports difficulty with recall and decreased cognition raises concern for patient's safety. He lives alone in a trailer and has caregiver assistance three times a week for 5 hours at a time. Subjective Identification Type Name Observations/Patient Presentation Patient resting in bed. Agreed to participate in therapy. Chief Complaint(s) Cognitive Objective Short Term Goals The patient will demonstrate functional problem solving and safety awareness with 80% accuracy in order to increase safety and decrease assistance from caregivers. The patient will use internal and external memory aids as needed to answer orientation questions with 100% accuracy in order to improve orientation. Treatment Activities Orientation: month +, date -, year - (stated it is 2090), day of week -, place +. Discussed use of calendar at home. Also educated patient on use of white board in room for re-orientation in this environment. Patient states he uses a calendar at home to keep track of the date as well as when he takes his medication, but also checks his phone if he is not sure of the date. He pays bills by check when they come in and has his caregiver Kimmy help with getting new stamps when he runs out. We discussed problem solving and safety issues related to cooking. Patient states he uses a propane stove and has forgotten to turn it off twice now. We discussed use of a kitchen timer as an external memory aid to assist with recall for safety. He also admitted to forgetting some of his medical appointments. Attempted to complete functional word problem - mathematical calculations given calculator and answering questions about a store receipt. Patient had difficulty with using calculator for calculations. Assessment Patient Response to Treatment Good Rehab Potential Good Impairments Identified Cognitive-Linguistic Skills Progress Towards Goals Good Progress Assessment of Overall Progress Improving Assessment of Improvement Patient is open to suggestions and is honest about his impairments in recall. He is receptive to recommendations, but carryover is difficult in this environment. He would benefit from SNF rehab as well as home health in order to establish strategies/routines in his environment at home. If patient discharges home, recommend increased caregiver assistance, daily if possible. Recommend targeting check writing and management of blood sugar checks tomorrow. May be beneficial to provide patient with calendar here and start working on developing a routine and strategies for improved orientation and problem solving. Reviewed with Patient Goals Progress Being Made Patient/Caregiver Understanding Good Plan Length of Session 30 Minutes Therapeutic Contents Cognitive-Linguistic Training Provided Patient/Caregiver Instruction Home Exercise Program Plan of Care Questions/Concerns Therapy Recommendations Continue with Current Program
--- NOTE | 2018-12-09 16:56 | OT.IP.TRT ---
Current Diagnoses Type 2 diabetes mellitus with other specified complication (12/04/18) Type 2 diabetes mellitus without complications (12/04/18) Hyperlipidemia, unspecified (12/04/18) Essential (primary) hypertension (12/04/18) Paroxysmal atrial fibrillation (12/04/18) Heart failure, unspecified (12/04/18) Occupational Therapy Treatment Note M2 OT-IP Current Condition Start: 12/06/18 16:53 Freq: Status: Active Protocol: Document 12/06/18 16:54 [facility] (Rec: 12/06/18 17:29 [facility] [id number]) Occupational Therapy Current Condition Current Condition Evaluation Date 12/06/18 Treatment Diagnosis Acute on chronic systolic heart failure Diagnosis Onset Date 12/06/18 M3 OT- IP Subjective and Pain Start: 12/06/18 16:53 Freq: Status: Active Protocol: Document 12/09/18 16:42 [facility] (Rec: 12/09/18 16:56 [facility] [id number]) OT- Subjective Occupational Therapy Visit Type Type Treatment Note Visit Start Time 15:35 Visit Stop Time 16:15 Total Visit Minutes 40 Occupational Therapy Visit Comments Patient Comments Pt agreeable to do thinking tasks and pt feels that he is thinking better and closer to baseline status. OT Pain Assessment Pain When Pain Assessed At Rest Pain Present Pain Present Denied Pain M4 OT- IP ADL's Start: 12/06/18 16:53 Freq: Status: Active Protocol: Document 12/07/18 10:36 [facility] (Rec: 12/07/18 10:51 [facility] [id number]) OT ADL-Toileting General Evaluation Toileting Ability Independent Areas Needing Assistance Manage Clothing Perform Perineal Hygiene Devices Toileting Assistive Devices Urinal Comments OT Toileting Comments Pt independent with urinal. M5 OT- IP IADL's Start: 12/06/18 16:53 Freq: Status: Active Protocol: Document 12/06/18 16:54 [facility] (Rec: 12/06/18 17:29 [facility] [id number]) OT-Instrumental Activities of Daily Living Medication Management Medication Management Comments Pt has [employer] that assists him with errands, meals, and take medications. Driving Driving Comments Pt states has not driven in 2 weeks. M6 OT- IP Functional Cognition Start: 12/06/18 16:53 Freq: Status: Active Protocol: Document 12/09/18 16:42 [facility] (Rec: 12/09/18 16:56 [facility] [id number]) Cognitive Factors Limiting Selfcare Function Cognitive Ability Level of Alertness Alert Patient Orientation Name Place Situation Attention Span Ability Capable of Focused Attention Capable of Sustained Attention Ability to Follow Commands Able to Follow One Step Commands Able to Follow Multi-Step Commands Memory Description Short Term Impaired Problem Solving Ability Needs Assist to Identify Solutions Executive Function Ability Unable to Filter Distractions Unable to Make Plans Unable to Organize Plans Unable to Remember Details Cognitive Tests ACL Today pt's score improve to 4. 4 out of 6.0 which implies someone to do daily check on the environment and remove any safety hazzards and solves any new problems. Pt may need reminders for medications, daily food planning, financial services assistant , and help with transportation. Cognitive Comments Cognitive Assessment Comments Pt able to answer most home safety with good understanding , pt still a little unsure of blood sugars and what he needs to do in case the reading is high. To speak to nursing regarding suggesting have pt do his blood sugars reading and make sure he is aware of what to do pending a high or low reading. M9 OT- IP Assessment and Plan Start: 12/06/18 16:53 Freq: Status: Active Protocol: Document 12/09/18 16:42 [facility] (Rec: 12/09/18 16:56 [facility] [id number]) OT Summary Assessment and Plan Potential Rehabilitation Potential Good Analytic Complexity at Evaluation Low Summary OT Impairments Functional Cognition Functional Mobility Dressing Bathing Progress Towards Goals Progressing Toward Goals Assessment Summary Pt doing better with overall functional cognition, however would still benefit from skilled rehab now versus home with home health as therapy in his home environment would be beneficial for pt to practice at home in real life situations in addition to increased assist at home. Pt is aware that he is not safe to do any driving at this time . Goals Self-Feeding Goal Independent Grooming Goal Independent Dressing Goal Independent Toileting Goal Standby Assistance Bathing Goal Standby Assistance Toilet Transfer Goal Independent Shower Transfer Goal Standby Assistance Patient/Caregiver Education Goal Caregiver Independent Assisting Patient Days to Meet Goals 2 Frequency of Treatment Frequency Of Treatment Once a Day Treatment Plan OT Treatment Plan ADL Training Functional Cognition Training Functional Mobility Patient/Family Education Discharge Planning Other Treatment Recommendations and Next Shower Treatment Focus Discharge Recommendations OT Discharge Recommendations Home with 24/ Assist Home Health SNF Rehab
[2018-12-09] MEDS: RIVAROXABAN 10 MG TABLET 20 MG PO (17:27)
[2018-12-09] MEDS: CHOLECALCIFEROL (VITAMIN D3) 1,000 UNIT TABLET 2000 UNIT PO (22:30)
[2018-12-09] MEDS: GABAPENTIN 300 MG CAPSULE PO (22:30)
[2018-12-09] MEDS: ATORVASTATIN 20 MG TABLET PO (22:30)
[2018-12-09] MEDS: QUETIAPINE 25 MG TABLET PO (22:30)
[2018-12-10] VITALS (15 sets, daily range): BP systolic 102–141; BP diastolic 56–80; PULSE 62–75; RESP 20–24; TEMP 36.2–36.5; O2SAT 88–99
[2018-12-10 00:48] LABS: Bacteria Urine None Seen; RBC Urine None Seen (0-5/HPF); WBC Urine None Seen (0-5/HPF)
[2018-12-10 00:49] LABS: Appearance Urine UA CLEAR; Bilirubin Urine UA NEGATIVE (NEGATIVE); Color Urine UA YELLOW; Glucose Urine UA NEGATIVE (Negative); Ketones Urine UA NEGATIVE (NEGATIVE); Leukocyte Esterase Urine UA NEGATIVE (NEGATIVE); Nitrite Urine UA NEGATIVE (Negative); Occult Blood Urine UA NEGATIVE (Negative); Protein Urine UA NEGATIVE (Negative); Urobilinogen Urine UA 0.2 E.U./dL (0.2)
[2018-12-10 00:56] LABS: Culture Indicated Urine Cult Not Indicated; Urine Comments Microscopic Normal
--- NOTE | 2018-12-10 01:11 | PC.NURSE ---
Addendum entered by Crystal Whitaker R.N. 12/10/18 06:13: Is now, again, having desats into low 80's even with O2 at 2L/min; Jonathan LEYVA informed, no new orders. Original Note: Addendum entered by Crystal Whitaker R.N. 12/10/18 04:36: Crawling out of bed and started urinating on floor before staff able to get urinal in place. Clothing/brief changed and back to bed. Sat currently 97% on 2L/min oxygen and has not had any desats recently. Denies pain. Original Note: Patient oriented except to year and day of week. Voice is tremory and speech sounds slurred which evening RN reports is his normal. Breath sounds CTA with RA sat of 98% but when asleep sat decreases intermittently with low of 78% so restarted on oxygen at 2L/min per NC with sat now at 92%; on continuous pulse oximetry. Does get SOB with exertion and seems SOB with conversation as well. HR irregular; telemetry reading of afib CVR. Denies nausea. BT present and abdomen is soft; had loose BM. Continent of urine and uses urinal; UA sent as per MD order. Able to turn self in bed but needs walker and 1 assist when out of bed. SCD's applied. Denies pain. Fall risk score is high and bed alarm is activated.
[2018-12-10] MEDS: CARVEDILOL 25 MG TABLET PO ×2 (08:37→22:24)
[2018-12-10] MEDS: LISINOPRIL 10 MG TABLET PO (08:38)
[2018-12-10] MEDS: SPIRONOLACTONE 25 MG TABLET 12.5 MG PO (08:38)
[2018-12-10] MEDS: SERTRALINE 50 MG TABLET PO (08:38)
[2018-12-10] MEDS: FUROSEMIDE 40 MG TABLET PO (08:38)
[2018-12-10] MEDS: SODIUM CHLORIDE 0.9% FLUSH 10 ML IV ×2 (08:40→22:24)
[2018-12-10] MEDS: INSULIN ASPART 100 UNIT/ML INSULN PEN SUBCUT ×2 (12:00→16:59)
--- NOTE | 2018-12-10 12:30 | ST.IPTN ---
SUPERINTENDENT TESTS Treatment Note SUPERINTENDENT TESTS Treatment Note Start: 12/06/18 15:31 Freq: Status: Active Protocol: Document 12/10/18 12:30 TLC (Rec: 12/10/18 17:33 [facility] [id number]) Speech Pathology Treatment Note Session Time Visit Start Time 12:00 Visit Stop Time 12:30 Total Visit Minutes 30 Visit Information Visit Number 3 Setting Treatment Setting Acute Care Visit Type Note Type Treatment Note Next Note Type Next Note Type Treatment Note General Information General Information Patient being seen by speech therapy for cognition. He reports difficulty with recall and decreased cognition raises concern for patient's safety. He lives alone in a trailer and has caregiver assistance three times a week for 5 hours at a time. Subjective Identification Type Name Observations/Patient Presentation Patient sitting up in chair following PT ready to eat lunch. He agreed to participate in therapy during lunch. Chief Complaint(s) Cognitive Objective Short Term Goals The patient will demonstrate functional problem solving and safety awareness with 80% accuracy in order to increase safety and decrease assistance from caregivers. The patient will use internal and external memory aids as needed to answer orientation questions with 100% accuracy in order to improve orientation. Treatment Activities Targeted orientation by providing patient with a monthly calendar and marking off past days. The month, year and place are written on the calendar to assist with recall of these. 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 It's uncertain whether this is related to disorientation or word finding problems as later patient called his nurse an service administrator. Despite this, he recalled his nurses name. Patient had difficulty with attention on this date and was tangential in conversation. He also was not able to multitask eating while conversing with me although I assured him multiple times it was okay to eat during our session. Patient reports he checks his blood sugar at home daily and states he eats something sweet if his number is low or drinks plenty water for a few days if his number is high. When asked about insulin, he said he injects himself daily with insulin. He demonstrated poor topic maintenance and frequently strayed from the topic to talk to me about his past experiences with spiritual guides and his recurring dreams. I planned on having him complete check-writing tasks, but the session was discontinued to let him eat lunch. Assessment Patient Response to Treatment Fair Rehab Potential Good Impairments Identified Cognitive-Linguistic Skills Progress Towards Goals Slow Progress Assessment of Overall Progress Improving Assessment of Improvement Patient observed to be more tangential on this date compared to yesterday. He continues to demonstrate cognitive impairments in the areas of memory, attention orientation and word finding requiring assistance for safety if he returns home. He is a good candidate for SNF, but would also benefit from home health for functional compensatory training in his home environment. Reviewed with Patient Goals Progress Being Made Patient/Caregiver Understanding Good Plan Length of Session 30 Minutes Therapeutic Contents Cognitive-Linguistic Training Provided Patient/Caregiver Instruction Home Exercise Program Plan of Care Questions/Concerns Therapy Recommendations Continue with Current Program
--- NOTE | 2018-12-10 12:56 | PT.IPTN ---
Current Diagnoses Type 2 diabetes mellitus with other specified complication (12/04/18) Type 2 diabetes mellitus without complications (12/04/18) Hyperlipidemia, unspecified (12/04/18) Essential (primary) hypertension (12/04/18) Paroxysmal atrial fibrillation (12/04/18) Heart failure, unspecified (12/04/18) Physical Therapy Treatment Note M2 PT-IP Current Condition Start: 12/06/18 14:47 Freq: NEEDED Status: Active Protocol: Document 12/06/18 14:00 HH (Rec: 12/06/18 15:09 HH [id number]) Physical Therapy Current Condition Current Condition Evaluation Date 12/06/18 Treatment Diagnosis SOB, diarrhea, generalized muscle weakness Onset Date 5 days ago Weight Bearing Status Weight Bearing Status Weight Bear as Tolerated M3 PT-IP Subjective Start: 12/06/18 14:47 Freq: NEEDED Status: Active Protocol: Document 12/10/18 11:34 [facility] (Rec: 12/10/18 12:56 [facility] [id number]) Subjective Physical Therapy Visit Type Type Treatment Note Visit Start Time 11:34 Visit Stop Time 11:57 Total Visit Minutes 23 Number of INDUSTRIAL MAINTENANCE REPAIRER Visits 1 Physical Therapy Visit Comments Patient Comments Pt agreeable to ambulate. Therapy Pain Assessment Pain Present Pain Present Denied Pain M4 PT-IP Mobility and Gait Start: 12/06/18 14:47 Freq: NEEDED Status: Active Protocol: Document 12/10/18 11:34 [facility] (Rec: 12/10/18 12:56 [facility] [id number]) PT-Bed Mobility Assessment Supine to Sit Supine to Sit Independent Sit to Supine Sit to Supine Independent Scooting Scooting to Edge of Bed Independent Scooting Up and Down in Bed Independent PT-Transfer Assessment Sit to and From Stand Sit to and from Stand Standby Assistance Equipment Transfer Assistive Device Gait Belt Front Wheeled Walker Transfers Transfer Destination Bed Chair Transfer Technique walked Transfer Ability Level of Assist Contact Guard Assistance Gait Assessment Gait Gait Assistance Required: Contact Guard Assist Distance (Feet) 200 Assistive Devices Assistive Device Gait Belt Front Wheeled Walker Comments Gait Comments Pt requires CGA w/FWW with cues for safety during turnes and obstacles. Pt needs cues to focus on walking and talking less during gait for energy conservation. M5 PT-IP Objective Assessments Start: 12/06/18 14:47 Freq: NEEDED Status: Active Protocol: Document 12/06/18 14:00 (Rec: 12/06/18 15:09 [email or web address]) Orientation Orientation/Cognition Orientation Name Age Birthday Month Date Day of Week Place Language Function Ability No Deficits Noted Safety Awareness Decreased Safety Awareness Memory Description Short Term Impaired Detention Impaired Gross Range of Motion Upper Extremity ROM Assessment Within Functional Limits Lower Extremity ROM Assessment Within Functional Limits Strength Upper Extremity Strength Assessment Within Functional Limits Lower Extremity Strength Assessment Within Functional Limits Coordination Assessment Gross Coordination Gross Coordination WNL Sensation Assessment Sensation Gross Sensation WNL Light Touch Intact Proprioception (Position) Intact Muscle Tone Muscle Tone WNL Yes M6 PT-IP Treatment Start: 12/06/18 14:47 Freq: NEEDED Status: Active Protocol: Document 12/10/18 11:34 [facility] (Rec: 12/10/18 12:56 [facility] [id number]) Physical Therapy Treatment Other Treatments Other Treatment Performed seated marches, standing balance: SLS eo, ec with Min A , tandem stance. M7 PT-IP Assessment and Plan Start: 12/06/18 14:47 Freq: NEEDED Status: Active Protocol: Document 12/10/18 11:34 [facility] (Rec: 12/10/18 12:56 [facility] [id number]) PT Summary Assessment and Plan Summary Assessment Summary Pt O2 on RA during mobility remained WNL. Pt requires CGA w/FWW during ambulation and cues for safety and is IND for bed mobility. Goals Days to Meet Goals 3 Treatment Plan Other Recommendations and Next Treatment dynamic balance, dual tasks, Focus consider no AD vs trialing SPC again Recommendations To Nursing Amount of Assist Needed 1 Person Assist Discharge Recommendations PT Discharge Recommendations SNF Rehab
--- NOTE | 2018-12-10 14:24 | P.PN_ITS ---
Subjective Date Patient Seen: 12/10/18 Interval history: Patient was sleepy today but arousable. He denies shortness of breath but has been noted to be hypoxic when sleeping. Oxygen saturation decreased to 89% with sleep but returns to normal when awake. Patient has no specific complaints. He denies chest pain or nausea. Exam Vital Signs (past 8 hours): - 12/10/18 07:54 12/10/18 08:10 12/10/18 08:53 Temperature 97.4 F L Pulse Rate 62 Respiratory Rate 22 Blood Pressure 131/80 Pulse Oximetry 98 93 97 12/10/18 08:55 12/10/18 09:54 12/10/18 11:55 Temperature Pulse Rate 71 Respiratory Rate Blood Pressure Pulse Oximetry 88 L 93 94 12/10/18 12:00 Temperature 97.4 F L Pulse Rate 63 Respiratory Rate 20 Blood Pressure 102/56 L Pulse Oximetry 96 Fraction of Inspired Oxygen 21 Oxygen Delivery Method Nasal Cannula Oxygen Flow Rate 1.5 Narrative Exam Narrative: Pleasant elderly male sleepy but arousable Lungs: decreased breath sounds but clear to auscultation CV: irregularly, irregular, nl Sl S2 Abd: soft/ nontender/ non distended Ext: no edema Objective Labs Result Diagrams: 12/09/18 05:23 12/09/18 05:23 Labs: Laboratory Results - last 24 hr 12/10/18 00:40 Urine Color Yellow Urine Appearance Clear Urine pH 7.0 Ur Specific [place] 1.010 Urine Protein Negative Urine Glucose (UA) Negative Urine Ketones Negative Urine Occult Blood Negative Urine Nitrate Negative Urine Bilirubin Negative Urine Urobilinogen 0.2 Ur Leukocyte Esterase Negative Urine RBC None seen Urine WBC None seen Urine Bacteria None seen Ur Culture Indicated? Cult not indicated Micro UA Comment Microscopic normal Assessment & Plan (1) Paroxysmal atrial fibrillation: Problem details: 1. paroxysmal atrial fibrillation, present on admission. patient heart rate is well controlled. Will continue Coreg, and rivaroxaban Current visit: Yes Status: Acute (2) Acute exacerbation of CHF (congestive heart failure): Problem details: acute systolic heart failure, present on admission. Continue lasix. Anticipate discharge to SNF or home soon. Qualifiers: Heart failure type: unspecified Qualified Code(s): I50.9 - Heart failure, unspecified Current visit: Yes Status: Acute (3) Essential hypertension: Problem details: will continue lisinopril and Coreg. Current visit: Yes Status: Acute (4) Hyperlipidemia associated with type 2 diabetes mellitus: Problem details: will continue statin Current visit: Yes Status: Acute (5) Type 2 diabetes mellitus: Problem details: will continue current treatment Current visit: Yes Status: Acute Quality VTE Deep Vein Thrombosis/Pulmonary Embolism Present on Admission: No
--- NOTE | 2018-12-10 16:06 | CM.DPC ---
DCP/continued: Received notification from Dr. Murillo that patient medically stable for discharge. AUTOMOTIVE PRODUCT SPECIALIST placed call to [facility] and they are unable to accommodate. Also [facility] and [facility]. Received return phone call from [facility] and they too are unable to accommodate. Received call from STEWART/MATEUSZ Restrepo she suggested CM team try [facility] in [place]. Placed call tp [facility] and faxed clinicals. Received return call from [facility] and they can accept this patient for SNF stay on Sunday12-11-18. Dr. Murillo notified and will write orders in AM. P: [facility] tomorrow. STEWART/MATEUSZ Restrepo will need to be notified of d/c disposition. [facility] suggested. AUDRA Tee
--- NOTE | 2018-12-10 16:24 | OT.IP.TRT ---
Current Diagnoses Type 2 diabetes mellitus with other specified complication (12/04/18) Type 2 diabetes mellitus without complications (12/04/18) Hyperlipidemia, unspecified (12/04/18) Essential (primary) hypertension (12/04/18) Paroxysmal atrial fibrillation (12/04/18) Heart failure, unspecified (12/04/18) Occupational Therapy Treatment Note M2 OT-IP Current Condition Start: 12/06/18 16:53 Freq: Status: Active Protocol: Document 12/06/18 16:54 [facility] (Rec: 12/06/18 17:29 [facility] [id number]) Occupational Therapy Current Condition Current Condition Evaluation Date 12/06/18 Treatment Diagnosis Acute on chronic systolic heart failure Diagnosis Onset Date 12/06/18 M3 OT- IP Subjective and Pain Start: 12/06/18 16:53 Freq: Status: Active Protocol: Document 12/10/18 16:15 [facility] (Rec: 12/10/18 16:24 [facility] [id number]) OT- Subjective Occupational Therapy Visit Type Type Treatment Note Visit Start Time 15:30 Visit Stop Time 16:10 Total Visit Minutes 40 Occupational Therapy Visit Comments Patient Comments Pt cooperative, pleasant and agreeable to do cognitive tasks of reading and menu. Pt states already showered and not wanting to shower. OT Pain Assessment Pain When Pain Assessed At Rest Pain Present Pain Present Denied Pain M4 OT- IP ADL's Start: 12/06/18 16:53 Freq: Status: Active Protocol: Document 12/07/18 10:36 [facility] (Rec: 12/07/18 10:51 [facility] [email or web address]) OT ADL-Toileting General Evaluation Toileting Ability Independent Areas Needing Assistance Manage Clothing Perform Perineal Hygiene Devices Toileting Assistive Devices Urinal Comments OT Toileting Comments Pt independent with urinal. M5 OT- IP IADL's Start: 12/06/18 16:53 Freq: Status: Active Protocol: Document 12/06/18 16:54 [facility] (Rec: 12/06/18 17:29 [facility] [id number]) OT-Instrumental Activities of Daily Living Medication Management Medication Management Comments Pt has STEWART that assists him with errands, meals, and take medications. Driving Driving Comments Pt states has not driven in 2 weeks. M6 OT- IP Functional Cognition Start: 12/06/18 16:53 Freq: Status: Active Protocol: Document 12/10/18 16:15 [facility] (Rec: 12/10/18 16:24 [facility] [id number]) Cognitive Factors Limiting Selfcare Function Cognitive Ability Level of Alertness Alert Patient Orientation Name Place Situation Attention Span Ability Capable of Focused Attention Capable of Sustained Attention Ability to Follow Commands Able to Follow One Step Commands Memory Description Short Term Impaired Working Impaired Safety Awareness Underestimates Need for Assistance Problem Solving Ability Needs Assist to Identify Solutions Executive Function Ability Unable to Filter Distractions Unable to Make Plans Unable to Organize Plans Unable to Remember Details Cognitive Comments Cognitive Assessment Comments Attempted pt to do Menu Task of picking out items for the day , keeping track calorie count, healthy option and limit for liquid intake. Pt not able to initiate to complete task. Menu task had to be divided up for each question asked and pt still needing step by step vc. Pt states on the property in which his trailer in on that he keep track on the cars coming and going and opens the gate for people looking at trailers on the property or for maintainance of the billboard signs. Pt did however perserverate on trying to get more vanilla ice cream and asked 3 times during the session. Pt forgetting that he needs to ask his nurse. Pt still having a little difficulty with word finding today. M7 OT- IP Mobility and Balance Start: 12/06/18 16:53 Freq: Status: Active Protocol: Document 12/10/18 16:15 [facility] (Rec: 12/10/18 16:24 [facility] [email or web address]) OT- Bed Mobility Assessment Scooting Scooting to Edge of Bed Independent M8 OT- IP Objective Assessments Start: 12/06/18 16:53 Freq: Status: Active Protocol: Document 12/06/18 16:54 [facility] (Rec: 12/06/18 17:29 [facility] [id number]) OT Gross Range of Motion Upper Extremity Range of Motion Assessment Left Impaired ROM Impairments Dupuytren's contracture on left 4th and 5th digit. OT Strength Comments Strength Comments BUE 4/5 throughout OT- Coordination Assessment Comments Coordination Comments Intact finger to thumb for right hand and left hand 1st, 2nd, and 3rd digits. M9 OT- IP Assessment and Plan Start: 12/06/18 16:53 Freq: Status: Active Protocol: Document 12/10/18 16:15 [facility] (Rec: 12/10/18 16:24 [facility] [email or web address]) OT Summary Assessment and Plan Potential Rehabilitation Potential Good Analytic Complexity at Evaluation Low Summary OT Impairments Functional Cognition Functional Mobility Dressing Bathing Progress Towards Goals Progressing Toward Goals Assessment Summary Pt very pleasant, cooperative , and willing to participate in therapies daily. Pt would benefit from skilled rehab to work on dynamic balance, functional cognition for safety needs for ADl's and especially for IADl needs safety and sequencing. Goals Self-Feeding Goal Independent Grooming Goal Independent Dressing Goal Independent Toileting Goal Standby Assistance Bathing Goal Standby Assistance Toilet Transfer Goal Independent Shower Transfer Goal Standby Assistance Patient/Caregiver Education Goal Caregiver Independent Assisting Patient Days to Meet Goals 2 Frequency of Treatment Frequency Of Treatment Once a Day Treatment Plan OT Treatment Plan ADL Training Functional Cognition Training Functional Mobility Patient/Family Education Discharge Planning Other Treatment Recommendations and Next Shower Treatment Focus Discharge Recommendations OT Discharge Recommendations SNF Rehab
[2018-12-10] MEDS: RIVAROXABAN 10 MG TABLET 20 MG PO (17:00)
--- NOTE | 2018-12-10 19:50 | PC.NURSE ---
Patient was on nasal cannula at the start of shift with O2 sat above 94%. Patient took off nasal cannula while eating and sats remained above 94% on room air until patient fell asleep. While asleep, O2 sat bounced between high 80s and mid 90s. Primary RN put nasal cannula back on 1.5L. The patient has periods where he needs to stop and take breaths between words while talking, but not every time he talks.
[2018-12-10] MEDS: GABAPENTIN 300 MG CAPSULE PO (22:24)
[2018-12-10] MEDS: QUETIAPINE 25 MG TABLET PO (22:24)
[2018-12-10] MEDS: ATORVASTATIN 20 MG TABLET PO (22:24)
[2018-12-10] MEDS: CHOLECALCIFEROL (VITAMIN D3) 1,000 UNIT TABLET 2000 UNIT PO (22:24)
[2018-12-11] VITALS (8 sets, daily range): BP systolic 120–128; BP diastolic 66–67; PULSE 63–73; RESP 18–20; TEMP 36.2–36.4; O2SAT 93–99
--- NOTE | 2018-12-11 01:47 | PC.NURSE ---
Addendum entered by Crystal Whitaker R.N. 12/11/18 06:11: O2 sat monitor alarming frequently throughout night with low sat noted to be at 78% but then slowly increases back to mid/high 90's. Jonathan LEYVA is aware. Original Note: Addendum entered by Crystal Whitaker R.N. 12/11/18 03:14: Bed rezeroed and note weight is not up 4.5kg but remains below admission weight. No edema noted and breath sounds are CTA. Original Note: Patient is oriented except to day of month, day of week and year. At start of shift was having conversation about how he came to be interested in nuclear energy after seeing some UFO's. Breath sounds CTA with sat in upper 90's on oxygen at 2L/min with intermittent desats below 90; on continuous oximeter. HR irregular; telemetry reading was afib CVR. Denies nausea. BT present and abdomen is soft. Up to BSC and had large loose BM and passed a lot of flatus. Seems to have some urinary urgency and is sometimes incontinent but denies dysuria; wearing a pull up. Independent with bed mobility and needs 1 assist + walker when out of bed as is unsteady on feet. Denies pain. Wearing bilateral SCD's. Fall risk score is high and bed alarm is activated.
--- NOTE | 2018-12-11 08:29 | P.DS_ITS ---
History of Present Illness Date Patient Seen: 12/11/18 Chief complaint: short of breath, diarrhea, chest issues Narrative: he patient is a 78-year-old male with PMH of HTN, DM 2T, HFrEF, cronic AFIB (AC w/ Xarelto), HLD, CKD, chronic left ankle pain (2/2 fall / ankle injury, 1975), psychiatric illness (depression, schizotypical personality disorder), prior 30 pack year history of tobacco dependence (quit 1979), and current cannabis use. Patient is a poor historian, HPI ascertained from there to interview and review of records. Patient presented to the ED on 12/04/2018 at 3:37 p.m., respectively, out of concern for shortness of breath. Symptom initially noted 5 days ago, progressively worsening. Associated symptoms include cough without significant or worsening purulence, wheezing, and peripheral edema. In the past 2-3 days reports waking up from sleep with palpitations and dizziness. Experienced episodes of nausea, but no vomiting or abdominal pain. Reports having intermittent episodes of diarrhea, not entirely clear if there is a degree of chronicity; however, has had 1 episode of defecation of normal consistency and was guaiac negative since admission. Denies chest pain, pleurisy, diaphoresis, syncopal events, malaise, myopathy, myalgias, and s/s of acute blood loss. Shortness of breath or dyspnea is worsened with exertion. Discharge Providers Date of admission: 12/04/18 20:17 Discharge Date: 12/11/18 Primary care physician: Reyna Murray MD Consults: 12/04/18 20:30 Consult to Discharge Planning Routine Comment: 12/04/18 20:33 Consult to Respiratory Therapy Evaluate & Treat Comment: re: dyspnea Physician Instructions: Evaluate and treat 12/06/18 09:53 Consult to Occupational Therapy Evaluate & Treat Comment: Physician Instructions: Evaluate and treat Consult to Physical Therapy Evaluate & Treat Comment: Physician Instructions: Evaluate and Treat Consult to Speech Therapy Evaluate & Treat Comment: Physician Instructions: Evaluate and treat Discharge provider: Charlee Murillo MD Summary Discharge Diagnosis: acute on chronic systolic heart failure, present on admission chronic atrial fibrillation, present on admission hypertension, chronic type 2 diabetes, chronic hyperlipidemia, chronic depression, 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 Patient was Treated for heart failure. He initially received IV Bumex and was subsequently switched to oral Lasix. His breathing improved. He was diuresed quite nicely. His heart rate was well controlled during the hospital stay. His other chronic medical issues were managed as well. Patient was found to be somewhat weak with ambulation. PT OT consultation was obtained and it was recommended that he be discharged to a rehab facility for ongoing care. The patient was deemed appropriate for discharge and discharged accordingly. During his hospital stay an echocardiogram was obtained. The results of which are as follows : The left ventricle is markedly dilated. The ejection fraction is estimated to be 25-30%. There is basal inferior wall akinesis. There is moderate to severe global hypokinesis of the left ventricle. There is severe biatrial enlargement. There is moderate mitral regurgitation. There is moderate aortic regurgitation. There is moderate tricuspid regurgitation. The right ventricular systolic pressure is estimated to be at least 58 mmHg based on an estimated right atrial pressure of 15 mm Hg. The aortic root is moderately dilated. Left ventricular function has slightly worsened compared to the previous exam. Patient did desaturate at night when sleeping. He was placed on oxygen at night. During the day oxygen saturation was adequate at above 95%. Suspect underlying sleep apnea. Would suggest outpatient sleep study to further evaluate/ Status at Discharge Cognitive/behavioral status at discharge: at baseline, oriented Functional status at discharge: uses cane/walker Overall status at discharge: patient is not back to baseline Time Spent with Patient Less than 30 minutes Exam Vital Signs (past 8 hours): - 12/11/18 01:38 12/11/18 03:40 12/11/18 05:08 Temperature 97.4 F L Pulse Rate 73 Respiratory Rate 20 Blood Pressure 125/66 Pulse Oximetry 99 95 98 Fraction of Inspired Oxygen 21 Oxygen Delivery Method Nasal Cannula Oxygen Flow Rate 2 Narrative Exam Narrative: Pleasant elderly male in no obvious distress. Lungs: Clear to auscultation cardiac exam: Irregularly irregular normal S1-S2 with a 2/6 systolic ejection murmur abdomen: Soft nonten [place] nondistended extremities: Trace edema Objective Labs Result Diagrams: 12/09/18 05:23 12/09/18 05:23 Discharge Plan Discharge Plan Discharge Problem: Acute exacerbation of CHF (congestive heart failure) Patient Disposition: SNF Transfer to: [facility] Under care of provider: Dr. Mcqueen Transportation: [place] I certify the postop hospital fci care is medically necessary on a continuing basis for any conditions for which he/ she received care during this hospitalization.: Yes The receiving facility has agreed to accept transfer and provide medical tr eatment.: Yes Discharge Med Rec/Prescriptions Prescriptions: Continued quetiapine 25 mg tablet 25 mg PO BEDTIME RF: 0 carvedilol 25 mg tablet 25 mg PO BID RF: 0 atorvastatin 20 mg tablet 20 mg PO BEDTIME RF: 0 spironolactone 25 mg tablet 12.5 mg PO DAILY RF: 0 potassium chloride 20 mEq tablet,ER particles/crystals 20 meq PO QNOON RF: 0 lisinopril 10 mg tablet 10 mg PO DAILY RF: 0 gabapentin 300 mg capsule 300 mg PO BEDTIME RF: 0 furosemide 20 mg tablet 20 mg PO DAILY RF: 0 sertraline 50 mg tablet 50 mg PO DAILY RF: 0 Xarelto 20 mg tablet 20 mg PO QPM RF: 0 cholecalciferol (vitamin D3) [Vitamin D3] 2,000 unit Capsule 2,000 unit PO BEDTIME RF: 0 calcium carbonate [Tums] 200 mg calcium (500 mg) Tablet,Chewable 500 mg PO BID RF: 0 docusate sodium 250 mg Capsule 250 mg PO QNOON RF: 0 Follow up/Referrals: Reyna Murray MD [Primary Care Provider] - Provider Discharge Instructions Diet: Low-sodium and Low-cholesterol Liquid consistency: Normal/Thin Food texture: Regular Activity: as tolerated Skin/Wound/Dressing Care Report to your healthcare provider any signs of infection, such as:: chills, fever and night sweats Special Rehabilitation Services Reason for rehabilitation: Recovery r/t decondition Rehab type: Physical therapy and Occupational therapy Discharge Data Primary Care Provider: Reyna Murray Attending Provider: Romina Mistry Admit Date/Time: 12/04/18 20:17 Quality VTE Deep Vein Thrombosis/Pulmonary Embolism Present on Admission: No
--- NOTE | 2018-12-11 09:36 | OT.IP.TRT ---
Current Diagnoses Type 2 diabetes mellitus with other specified complication (12/04/18) Type 2 diabetes mellitus without complications (12/04/18) Hyperlipidemia, unspecified (12/04/18) Essential (primary) hypertension (12/04/18) Paroxysmal atrial fibrillation (12/04/18) Heart failure, unspecified (12/04/18) Occupational Therapy Treatment Note M2 OT-IP Current Condition Start: 12/06/18 16:53 Freq: Status: Active Protocol: Document 12/06/18 16:54 [facility] (Rec: 12/06/18 17:29 [facility] [id number]) Occupational Therapy Current Condition Current Condition Evaluation Date 12/06/18 Treatment Diagnosis Acute on chronic systolic heart failure Diagnosis Onset Date 12/06/18 M3 OT- IP Subjective and Pain Start: 12/06/18 16:53 Freq: Status: Active Protocol: Document 12/11/18 09:20 [facility] (Rec: 12/11/18 09:36 [facility] [id number]) OT- Subjective Occupational Therapy Visit Type Type Treatment Note Visit Start Time 08:40 Visit Stop Time 09:18 Total Visit Minutes 38 Occupational Therapy Visit Comments Patient Comments Pt willing to wash up at the sink but not wanting to shower . OT Pain Assessment Pain When Pain Assessed At Rest Pain Present Pain Present Denied Pain M4 OT- IP ADL's Start: 12/06/18 16:53 Freq: Status: Active Protocol: Document 12/11/18 09:20 [facility] (Rec: 12/11/18 09:36 [facility] [id number]) OT ADL-Grooming General Evaluation Grooming Ability Standby Assistance Comments OT Grooming Comments Pt independent for task of grooming, however needing vc for sequencing through task. M5 OT- IP IADL's Start: 12/06/18 16:53 Freq: Status: Active Protocol: Document 12/06/18 16:54 [facility] (Rec: 12/06/18 17:29 [facility] [id number]) OT-Instrumental Activities of Daily Living Medication Management Medication Management Comments Pt has STEWART that assists him with errands, meals, and take medications. Driving Driving Comments Pt states has not driven in 2 weeks. M6 OT- IP Functional Cognition Start: 12/06/18 16:53 Freq: Status: Active Protocol: Document 12/11/18 09:20 [facility] (Rec: 12/11/18 09:36 [facility] [id number]) Cognitive Factors Limiting Selfcare Function Cognitive Ability Level of Alertness Alert Patient Orientation Name Month Year Place Situation Attention Span Ability Capable of Focused Attention Capable of Sustained Attention Ability to Follow Commands Able to Follow One Step Commands Memory Description Short Term Impaired Working Impaired Safety Awareness Underestimates Need for Assistance Problem Solving Ability Needs Assist to Identify Solutions Executive Function Ability Unable to Filter Distractions Unable to Make Plans Unable to Organize Plans Unable to Remember Details Cognitive Comments Cognitive Assessment Comments Pt able to gather items for grooming, however at the end of the task forget to put glasses back on. Pt needing cues to find the toothpaste and toothbrush located behind the faucet. Practiced with pt while looking out the window to identify cars via type, color, and other details. Prior at home while living on in his trailer would help by opening gate on the property for people to look at other trailers and cars on the Therefore in trade for living on the property, he would write down who was coming and going by descriptions of the vehicles and open the gate for people coming through. M7 OT- IP Mobility and Balance Start: 12/06/18 16:53 Freq: Status: Active Protocol: Document 12/11/18 09:20 [facility] (Rec: 12/11/18 09:36 [facility] [id number]) OT-Transfer Assessment Sit to and From Stand Sit to and from Stand Standby Assistance Comments Mobility Comments SBA with FWW, Pt needing cues to manage and watch O2 and O2 monitor line. Pt's O2 drops with activity at times to 88% on 2L. Pt able to climb up on the bench on window to look at cars. Coming back down CGA for balance as pt lost his balance. OT- Balance Assessment Sitting Balance and Reactions Static Sitting Balance Ability Normal Dynamic Sitting Balance Ability Normal Standing Balance and Reactions Static Standing Balance Ability Good Dynamic Standing Balance Ability Fair M8 OT- IP Objective Assessments Start: 12/06/18 16:53 Freq: Status: Active Protocol: Document 12/06/18 16:54 [facility] (Rec: 12/06/18 17:29 [facility] [id number]) OT Gross Range of Motion Upper Extremity Range of Motion Assessment Left Impaired ROM Impairments Dupuytren's contracture on left 4th and 5th digit. OT Strength Comments Strength Comments BUE 4/5 throughout OT- Coordination Assessment Comments Coordination Comments Intact finger to thumg for right hand and left hand 1st, 2nd, and 3rd digits. M9 OT- IP Assessment and Plan Start: 12/06/18 16:53 Freq: Status: Active Protocol: Document 12/11/18 09:20 [facility] (Rec: 12/11/18 09:36 [facility] [id number]) OT Summary Assessment and Plan Potential Rehabilitation Potential Good Analytic Complexity at Evaluation Low Summary OT Impairments Functional Cognition Functional Mobility Dressing Bathing Progress Towards Goals Progressing Toward Goals Assessment Summary Pt cooperative and pleasant and looking to go to skilled rehab to continue to work on increased activity tolerance, dynamic balance, safety awareness and functional cognition. Goals Days to Meet Goals 1 Frequency of Treatment Frequency Of Treatment Once a Day Treatment Plan OT Treatment Plan ADL Training Functional Cognition Training Functional Mobility Patient/Family Education Discharge Planning Discharge Recommendations OT Discharge Recommendations SNF Rehab
[2018-12-11] MEDS: SERTRALINE 50 MG TABLET PO (09:53)
[2018-12-11] MEDS: FUROSEMIDE 40 MG TABLET PO (09:53)
--- NOTE | 2018-12-11 10:24 | PT.IPTN ---
Current Diagnoses Type 2 diabetes mellitus with other specified complication (12/04/18) Type 2 diabetes mellitus without complications (12/04/18) Hyperlipidemia, unspecified (12/04/18) Essential (primary) hypertension (12/04/18) Paroxysmal atrial fibrillation (12/04/18) Heart failure, unspecified (12/04/18) Physical Therapy Treatment Note M2 PT-IP Current Condition Start: 12/06/18 14:47 Freq: NEEDED Status: Active Protocol: Document 12/06/18 14:00 (Rec: 12/06/18 15:09 [id number]) Physical Therapy Current Condition Current Condition Evaluation Date 12/06/18 Treatment Diagnosis SOB, diarrhea, generalized muscle weakness Onset Date 5 days ago Weight Bearing Status Weight Bearing Status Weight Bear as Tolerated M3 PT-IP Subjective Start: 12/06/18 14:47 Freq: NEEDED Status: Active Protocol: Document 12/11/18 10:14 [facility] (Rec: 12/11/18 10:23 [facility] [id number]) Subjective Physical Therapy Visit Type Type Treatment Note Visit Start Time 09:20 Visit Stop Time 09:25 Total Visit Minutes 25 Number of MANAGER BUSINESS MANAGEMENT Visits 2 Physical Therapy Visit Comments Patient Comments Pt up in chair, agreeable to PT and asing for ice cream. Patient Goals To go home after SNF. Therapy Pain Assessment Pain When Pain Assessed During Mobility Pain Present Pain Present Denied Pain M4 PT-IP Mobility and Gait Start: 12/06/18 14:47 Freq: NEEDED Status: Active Protocol: Document 12/11/18 10:14 [facility] (Rec: 12/11/18 10:23 [facility] [id number]) PT-Transfer Assessment Sit to and From Stand Sit to and from Stand Standby Assistance Equipment Transfer Assistive Device Gait Belt Front Wheeled Walker Transfers Transfer Destination Bed Chair Transfer Technique walked Transfer Ability Level of Assist Standby Assistance Comments Mobility Comments Pt SBA wth mobility tasks and use of FWW. Needs frequent cues for breathing as he likes to talk and forgets to breath correctly causing his 02 sats to drop to 80% with activity. Recovers quickly with PLB technique, but needs cues to do this. Gait Assessment Gait Gait Assistance Required: Contact Guard Assist Distance (Feet) 220 Assistive Devices Assistive Device Gait Belt Front Wheeled Walker Comments Gait Comments Gait training for 110 feet x 2 with seated rest break between. Max cues for PLB and pacing with activity, pt is very easily distracted with conversation. 02 sats 86-91% on 2L with ambulation. PT-Balance Assessment Comments Other Balance Tests/Deviations/Treatment Standing heel/toe raises and : maraching at FWW. 02 dropped to 80% with this tasks as pt talks and needs cues for correct breathing. M5 PT-IP Objective Assessments Start: 12/06/18 14:47 Freq: NEEDED Status: Active Protocol: Document 12/06/18 14:00 (Rec: 12/06/18 15:09 [id number]) Orientation Orientation/Cognition Orientation Name Age Birthday Month Date Day of Week Place Language Function Ability No Deficits Noted Safety Awareness Decreased Safety Awareness Memory Description Short Term Impaired Retirement Impaired Gross Range of Motion Upper Extremity ROM Assessment Within Functional Limits Lower Extremity ROM Assessment Within Functional Limits Strength Upper Extremity Strength Assessment Within Functional Limits Lower Extremity Strength Assessment Within Functional Limits Coordination Assessment Gross Coordination Gross Coordination WNL Sensation Assessment Sensation Gross Sensation WNL Light Touch Intact Proprioception (Position) Intact Muscle Tone Muscle Tone WNL Yes M6 PT-IP Treatment Start: 12/06/18 14:47 Freq: NEEDED Status: Active Protocol: Document 12/11/18 10:23 [facility] (Rec: 12/11/18 10:24 [id number]) Physical Therapy Treatment Exercises Exercises Ankle Pumps Education Education Provided Safety Other Treatments Other Treatment Performed standing dynamic balance at FWW with limited UE support. M7 PT-IP Assessment and Plan Start: 12/06/18 14:47 Freq: NEEDED Status: Active Protocol: Document 12/11/18 10:14 [facility] (Rec: 12/11/18 10:23 [id number]) PT Summary Assessment and Plan Summary Assessment Summary Pt progressing well but needs cues for pacing/breathing with mobility/ambulation. Pt on 2L of 02 during session. Frequency of Treatment Frequency Of Treatment Once a Day Treatment Plan Other Recommendations and Next Treatment dynamic balance, dual tasks, Focus consider no AD vs trialing SPC again Recommendations To Nursing Amount of Assist Needed 1 Person Assist Discharge Recommendations PT Discharge Recommendations SNF Rehab
--- NOTE | 2018-12-11 10:54 | CM.DPC ---
DCP Discharge to SNF Per MD, pt is still medically stable to discharge to SNF today. LOTTIE called [facility] admissions [facility] and confirmed that they can still accept the pt today. LOTTIE faxed d/c summary, PASRR signed by , and signed med rec to [facility] to review. [facility] requested SW set up transport through [facility] or [facility] and have billed to their facility. LOTTIE updated RN and set up w/c van transport through [facility] for 1215 and updated RN, GUILLE, [facility]. LOTTIE spoke to pt's mental health counselor Job Silva ([phone]) and assigned [facility] CM Ifeoma Restrepo with updated plan and time for discharge and both very appreciative and Job will follow up with pt later today at [facility] for ongoing support. LOTTIE faxed d/c summary to Ifeoma Restrepo for review for STEWART update. Plan: Patient to d/c to [facility] rehab today via [facility] w/c van at 1215 and [facility] agreeable to bill [facility] for the cost per [facility] request. AUDRA Valladares
--- NOTE | 2018-12-11 11:52 | PC.NURSE ---
Addendum entered by Kate Nunez R.N. 12/11/18 13:09: Pt sent via [facility] to [facility] with belongings. To vehicle @ 1245 Original Note: Am shift. Pt is a/o x2, forgetful, impulsive at times. Using the urinal in room. Spo2 99% 1L, will see about weaning down. Plan to d/c to to [facility] later today. [facility] @12:15 per CM. Report called into crane man.
== END 2018-12-11 13:09 | DRG 293 ==
LOC: ED 19:21 → AC 20:18
PROVIDERS: Internal Medicine; Admitting Provider Nurse Practitioner Gerontology; Emergency Provider Internal Medicine; Family Provider Internal Medicine; PCP Internal Medicine; Visit Provider Nurse Practitioner Gerontology
DX: I11.0 Hypertensive heart disease with heart failure (principal); I50.23 Acute on chronic systolic (congestive) heart failure; E11.9 Type 2 diabetes mellitus without complications; I48.0 Paroxysmal atrial fibrillation; Z79.01 Long term (current) use of anticoagulants; E78.5 Hyperlipidemia, unspecified; Z79.84 Long term (current) use of oral hypoglycemic drugs; Z87.891 Personal history of nicotine dependence; F21 Schizotypal disorder
CPT/HCPCS: 36415; 36591; 71045; 71046; 80048; 80053; 80061; 81001; 82962; 83036; 83735; 83880; 84145; 84484; 85025; 87449; 87633; 92523; 93005; 93010; 93306; 94640; 94760; 94762; 96361; 96374; 97110; 97112; 97116; 97127; 97162; 97165; 97530; 97535; 99285; J1940; J7613

== ENCOUNTER → 2019-05-29 18:49 | Outpatient (ROUT) | payer MEDICARE, MEDICAID, SELFPAY ==
[2018-12-04 21:28] VITALS: BMI 30.5
[2019-05-29 19:20] LABS: Alanine Aminotransferase 23 IU/L (21-72); Aspartate Aminotransferase 21 IU/L (17-59); BUN Creatinine Ratio 17.3 (6-22); Blood Urea Nitrogen 26 mg/dL (9-20); Carbon Dioxide 26 mmol/L (22-32); Chloride 103 mmol/L (98-107); Cholesterol 132 mg/dL (140-199); Estimated Glomerular Filt Rate 45.3 mL/min (>60); Glucose 241 mg/dL (80-110); HDL Cholesterol 37 mg/dL (40-60); HEMOLYSIS < 15 (0-50); LDL Cholesterol Calculated 44 mg/dL (<100); Potassium 5.1 mmol/L (3.4-5.1); Sodium 139 mmol/L (137-145); Triglycerides 255 mg/dL (35-150)
[2019-05-29 19:50] LABS: Prostate Specific Antigen Scrn 0.692 ng/mL (0.1-4.0)
== END ==
PROVIDERS: Family Provider Internal Medicine; PCP Internal Medicine; Visit Provider Internal Medicine
DX: Z12.5 Encounter for screening for malignant neoplasm of prostate (principal); E78.2 Mixed hyperlipidemia; I10 Essential (primary) hypertension
CPT/HCPCS: 80048; 80061; 84450; 84460; G0103